=== PATIENT | female | born 1955 | race Caucasian/White ===

== ENCOUNTER 2020-09-25 23:31 | Observation (INO) | payer MEDICARE, OTHER ==
[~2020-09-25] VITALS: Ht 157.5 cm; Wt 69.7 kg
[2020-09-26 00:43] LABS: BASO # 0.1 10^3/uL (0.0-0.2); BASO % 0.6 % (0.0-1.0); EOS # 0.3 10^3/uL (0.0-0.5); EOS % 3.2 % (0.0-3.0); HEMATOCRIT 40.8 % (36.0-47.0); HEMOGLOBIN 13.4 g/dl (12.0-15.5); LYMPH # 3.1 10^3/uL (1.5-5.0); MEAN CORPUSCULAR HEMOGLOBIN 31.2 pg (27.0-33.0); MEAN CORPUSCULAR HGB CONC 32.8 g/dl (32.0-36.5); MEAN CORPUSCULAR VOLUME 94.9 fl (80.0-96.0); MONO # 0.7 10^3/uL (0.0-0.8); MONO % 8.2 % (2.0-8.0); NEUTROPHILS # 4.7 10^3/uL (1.5-8.5); NEUTROPHILS % 52.2 % (36.0-66.0)
[2020-09-26 00:47] LABS: PLATELET COUNT, AUTOMATED 97 10^3/uL (150-450)
[2020-09-26 01:20] LABS: ACETAMINOPHEN LEVEL < 2.0 UG/ML (10.0-30.0); ALBUMIN 3.4 GM/DL (3.2-5.2); ALT/SGPT 61 U/L (12-78); BILIRUBIN,DIRECT 0.1 MG/DL (0.0-0.2); BILIRUBIN,TOTAL 0.8 MG/DL (0.2-1.0); BLOOD UREA NITROGEN 6 MG/DL (7-18); CALCIUM LEVEL 8.9 MG/DL (8.5-10.1); CARBON DIOXIDE LEVEL 19 MEQ/L (21-32); CHLORIDE LEVEL 111 MEQ/L (98-107); CK-MB VALUE MASS < 1.0 NG/ML (<3.6); CPK CREATINE PHOSPHOKINASE 101 U/L (26-192); CREATININE FOR GFR 0.62 MG/DL (0.55-1.30); ETHYL ALCOHOL (ETHANOL) 0.256 % (0.000-0.010); GLOMERULAR FILTRATION RATE > 60.0 (>51); GLUCOSE, FASTING 95 MG/DL (70-100); MB/CK RELATIVE INDEX 0.99 (< OR =4); SALICYLATE LEVEL < 1.7 MG/DL (5.0-30.0); SODIUM LEVEL 141 MEQ/L (136-145); TOTAL PROTEIN 7.6 GM/DL (6.4-8.2); TROPONIN I < 0.02 NG/ML (< 0.10)
[2020-09-26] MEDS ORDERED: LORazepam 2 MG TAB PO PRN ×2 (07:10→09:00)
[2020-09-26] MEDS ORDERED: MULTIVITAMIN -ADULT INJECTION 10 ML, THIAMINE INJection 100 MG, FOLIC ACID 1 MG in NS 1... IV ONE (07:10)
[2020-09-26 07:39] LABS: AMPHETAMINES LEVEL URINE NEGATIVE (NEGATIVE); BARBITURATES URINE NEGATIVE (NEGATIVE); BENZODIAZEPINES URINE NEGATIVE (NEGATIVE); CANNABINOIDS URINE NEGATIVE (NEGATIVE); COCAINE METABOLITE URINE NEGATIVE (NEGATIVE); METHADONE URINE NEGATIVE (NEGATIVE); OPIATES URINE NEGATIVE (NEGATIVE); PHENCYCLIDINE URINE NEGATIVE (NEGATIVE)
--- NOTE | 2020-09-26 08:16 | REP ---
INDICATION: fall. COMPARISON: None. TECHNIQUE: AP view of the pelvis. Single-view. FINDINGS: The bony pelvic ring is intact. No pelvic or proximal femur fracture is seen. No sacral fracture is appreciated. Sacroiliac joints and symphysis pubis are intact. Hip joint spaces are preserved. There is minimal superior acetabular spurring bilaterally. Visualized bowel gas pattern is normal. IMPRESSION: No traumatic abnormality noted. <Electronically signed by Carlos Cruz > 09/26/20 [id number]
--- NOTE | 2020-09-26 08:17 | REP ---
INDICATION: fall. COMPARISON: None. TECHNIQUE: AP and frogleg views of the left hip are provided. FINDINGS: The left femoral head is smooth and rounded. Hip joint space is preserved. There is mild superior acetabular spurring. No fracture is seen. Visualized left hemipelvis appears intact. IMPRESSION: No fracture noted. Minimal spurring. <Electronically signed by Carlos Cruz > 09/26/20 [id number]
--- NOTE | 2020-09-26 08:18 | REP ---
INDICATION: fall. COMPARISON: Today's left hip radiographs.. TECHNIQUE: AP and lateral views of the mid and distal femur are presented. FINDINGS: AP and lateral views of the left femur demonstrate normal bones, joints, and soft tissues. No fracture or subluxation is seen. No opaque foreign body noted. IMPRESSION: Negative left femur series. <Electronically signed by Carlos Cruz > 09/26/20 [id number]
[2020-09-26] MEDS ORDERED: ENOXAPARIN 40MG/0.4ML SYRINGE (J1650 PER 10MG) SC SCH (09:00)
[2020-09-26] MEDS ORDERED: THIAMINE 100 MG TAB PO SCH (09:00)
--- NOTE | 2020-09-26 09:35 | HPE ---
HISTORY AND PHYSICAL DATE OF ADMISSION: 09/26/2020 PRINCIPAL DIAGNOSIS: Altered mental status/chronicity unknown. HISTORY OF PRESENT ILLNESS: Hayden Bailey was brought apparently by the authorities to the emergency room intoxicated. She has been here over eight hours. [facility] was called to admit this patient who was in the emergency room at 11:30 last night because her mental status has not returned to baseline. Unfortunately, no one has any idea what her baseline is. She has never been in the hospital before, there are no records on her, and there are no family members or any other people that can give us any idea what her baseline status is. When she was felt to no longer be intoxicated, she had some evidence of hesitancy to answer questions, which is leading to her admission. Past medical history is entirely unknown. She is apparently an alcoholic presenting with a blood alcohol level of 0.25. Mildly elevated liver function tests and probably subclinical hypothyroidism. From what the emergency room records say, she was brought to the emergency room by EMS after she fell. She was trying to get out of a cab and she fell face first. She was disoriented and had a hematoma on the forehead. She was brought to the emergency room because of that fall. PAST MEDICAL HISTORY: Unknown. She says she has never been in the hospital. PAST SURGICAL HISTORY: She denies any surgery. MEDICATIONS: Denies any medicines. ALLERGIES: Denies any allergies. FAMILY HISTORY: She says "I don't remember anybody." SOCIAL HISTORY: She smokes. Heavy alcohol use. Denies recreational drug use. She does not work. PHYSICAL EXAMINATION: VITAL SIGNS: Blood pressure 144/75, pulse 76, respiratory rate 18, 100% O2 saturation on room air. Afebrile. GENERAL APPEARANCE: She looks chronically ill, but resting comfortably in no distress whatsoever. HEENT: She has a mild abrasion of her forehead and otherwise unremarkable. Pharynx benign. No nystagmus. Extraocular movements are intact. LUNGS: Clear. HEART: Regular rhythm without murmur. ABDOMEN: Soft and nontender with no masses. EXTREMITIES: No clubbing, cyanosis, or edema. Normal strength in the arms and the legs. Normal reflexes. Normal sensation. I did not test her gait. There is no asterixis present. NEUROLOGIC: Mental status exam shows that she knows she is in the emergency room. She knows she is in [place]. She knows the month. She thinks it is 2019, but that is fairly close. She knows her date of and her year. She is a little slow to answer some of these, but we do not know whether that is her baseline or this is change. LABORATORY DATA: Sodium 141, potassium 4.0, BUN 6, creatinine 0.6, AST 76, ALT 61, alkaline phosphatase 139. TSH 6.7. White count 9, hemoglobin 13.4, platelets 97,000. Blood alcohol 0.25. Tox screen negative. Urinalysis negative. COVID screen negative. IMAGING DATA: X-ray of the hip, femur, and pelvis are unremarkable. She was brought to the emergency room because she fell and hit her head, but I do not see where she has actually had any brain imaging done (I will defer admission until this is performed in case there is a subdural hematoma). IMPRESSION: 1. Perceived altered mental status. Again, she is sort of a "black box." We do not know what her baseline mental status is. 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 She has does not have any problems with extraocular movements. I did not get a chance to test her gait, it could be Wernicke's or Wernicke-Korsakoff syndrome. Certainly with the fall hitting her forehead, she should have some brain imaging done and I will call down to the emergency room and postpone her admission until this is performed. If there is no sign of an actionable intracranial injury requiring a transfer, then we will admit here and provide banana bag, thiamine, CIWA protocol, and get PFS involved. 2. Subclinical hypothyroidism. TSH is minimally elevated. We will get a free T4, as well as repeat the TSH (fairly unreliable assay in the lab recently). 3. Fall probably from alcoholism. We will check a B12 and a folate. Get PT involved.
--- NOTE | 2020-09-26 10:17 | ECGEPIP ---
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
[2020-09-26 10:28] LABS: FREE T4 0.96 NG/DL (0.76-1.46)
[2020-09-26 10:49] VITALS: BP 153/80
--- NOTE | 2020-09-26 11:44 | REP ---
INDICATION: Altered Mental Status. COMPARISON: None. TECHNIQUE: SINGLE PORTABLE AP VIEW OF THE CHEST WAS PERFORMED. FINDINGS: The lungs are not well ventilated. There are carotid lung markings but no evidence of acute infiltrate. The heart is not significantly enlarged. The mediastinal silhouette is unremarkable. The visualized osseous structures appear intact. IMPRESSION: NO ACUTE PULMONARY DISEASE.A preliminary report was provided by [facility] at the time of the exam. <Electronically signed by Juan Carlos Rogel > 09/26/20 [id number]
[2020-09-26] MEDS: MULTIVITAMINS/MINERALS THERAP 1 TAB PO SCH (12:08)
[2020-09-26] MEDS: THIAMINE 100 MG TAB PO SCH (12:08)
[2020-09-26] MEDS: FOLIC ACID 1 MG TAB PO SCH (12:09)
[2020-09-26 13:50] LABS: VITAMIN B12 LEVEL 409 PG/ML (247-911)
[2020-09-26 13:51] LABS: FOLATE > 24.0 NG/ML (>5.4)
[2020-09-26 14:00] VITALS: BP 145/78
--- NOTE | 2020-09-26 16:45 | REP ---
INDICATION: trauma. COMPARISON: None. TECHNIQUE: CT cervical spine performed in the axial plane, with sagittal and coronal reconstruction images performed. FINDINGS: There is no acute compression fracture or malalignment. There is no prevertebral soft tissue swelling. Disc spaces are well preserved. There is normal cervical lordosis. There is no abnormal density in the spinal canal.Enlarged thyroid lobe is noted on the right. There is diffuse narrowing, sclerosis and spurring at the posterior facet joints. IMPRESSION: No evidence of acute fracture or dislocation.Preliminary report provided by [facility] at the time of the exam. <Electronically signed by Juan Carlos Rogel > 09/26/20 [id number]
--- NOTE | 2020-09-26 16:45 | REP ---
INDICATION: Altered Mental Status. COMPARISON: None. TECHNIQUE: CT BRAIN PERFORMED IN THE AXIAL PLANE. CORONAL RECONSTRUCTION IMAGES ARE PERFORMED. FINDINGS: There is moderate atrophy. There is no midline shift or mass effect. There is no acute intracranial hemorrhage or extra-axial fluid collection. Rogel-white differentiation is relatively well maintained. There do appear to be some minimal periventricular small vessel ischemic changes in the white matter likely chronic in nature. No skull fracture is seen. The mastoid air cells and visualized paranasal sinuses are clear. IMPRESSION: No acute intracranial hemorrhage or skull fracture. Chronic changes as discussed above. A preliminary report was provided by [facility] at the time of the exam. <Electronically signed by Juan Carlos Rogel > 09/26/20 0333
[2020-09-26] MEDS ORDERED: NICOTINE 21MG/24HR 1 EA TRANSDERMAL TD PRN (17:45)
[2020-09-26 21:46] VITALS: BP 137/66
[2020-09-27 06:12] VITALS: BP 141/80
[2020-09-27 06:13] VITALS: BP 141/80
[2020-09-27 06:51] LABS: HEMATOCRIT 36.2 % (36.0-47.0); MEAN CORPUSCULAR HEMOGLOBIN 30.9 pg (27.0-33.0); MEAN CORPUSCULAR HGB CONC 33.1 g/dl (32.0-36.5); MEAN CORPUSCULAR VOLUME 93.3 fl (80.0-96.0); RED BLOOD COUNT 3.88 10^6/uL (4.00-5.40); WHITE BLOOD COUNT 6.2 10^3/uL (4.0-10.0)
[2020-09-27 06:52] LABS: PLATELET COUNT, AUTOMATED 79 10^3/uL (150-450)
[2020-09-27 07:22] LABS: ALBUMIN 2.8 GM/DL (3.2-5.2); ALT/SGPT 43 U/L (12-78); BILIRUBIN,TOTAL 1.5 MG/DL (0.2-1.0); BLOOD UREA NITROGEN 8 MG/DL (7-18); CALCIUM LEVEL 8.1 MG/DL (8.8-10.2); CARBON DIOXIDE LEVEL 24 MEQ/L (21-32); CHLORIDE LEVEL 110 MEQ/L (98-107); GLOMERULAR FILTRATION RATE > 60.0 (>45); GLUCOSE, FASTING 87 MG/DL (70-100); POTASSIUM SERUM 3.7 MEQ/L (3.5-5.1); SODIUM LEVEL 139 MEQ/L (136-145); TOTAL PROTEIN 6.3 GM/DL (6.4-8.2)
[2020-09-27] MEDS: THIAMINE 100 MG TAB PO SCH (08:35)
[2020-09-27] MEDS: MULTIVITAMINS/MINERALS THERAP 1 TAB PO SCH (08:36)
[2020-09-27] MEDS: FOLIC ACID 1 MG TAB PO SCH (08:36)
[2020-09-27] MEDS ORDERED: ENOXAPARIN 40MG/0.4ML SYRINGE (J1650 PER 10MG) SC SCH (09:00)
[2020-09-27] MEDS ORDERED: NICO21PAT TD (09:17)
[2020-09-27] MEDS ORDERED: THIA100TA PO (09:17)
[2020-09-27] MEDS ORDERED: FOLI1TAB11 PO (09:17)
[2020-09-27] MEDS ORDERED: LEVO25TA5 PO (09:17)
--- NOTE | 2020-09-27 09:24 | IPN ---
PROGRESS NOTE DATE: 09/27/2020 SUBJECTIVE: Hayden is seen on [address]. She was admitted with a diagnosed of "altered mental status." The problem with the diagnosis is no one has any previous experience with her and we cannot find any family or friends to tell whether her current mentation is baseline and therefore, not altered or if there is a change. She has a history of alcohol abuse. No other available past medical history. Interestingly, she lives in an apartment building and the person who lives next to her was also admitted yesterday with some confusional episodes. No carbon monoxide levels were drawn. Nursing packing shed supervisor is notifying the fire department to go test the resident. I want to correct dictation from yesterday, there was no CT of the head available in [facility], but in calling the emergency room there was a verbal report that was negative; so she did in deed actually have brain imaging prior to admission. OBJECTIVE: VITAL SIGNS: Stable. Afebrile. HEENT: Shows an abrasion of the left forehead. Pupils equal and reactive to light. Extraocular movements intact. LUNGS: Clear. HEART: Regular rhythm. ABDOMEN: Soft and nontender. EXTREMITIES: No peripheral edema. Moves arms and legs with equal strength. MENTAL STATUS EXAM: Shows she is alert and conversant. She knows her location, the month, the year, her address, and her phone number. She cannot name the president. LABORATORY DATA: CBC and CMP unremarkable. B12, folate, and RPR were unremarkable. Free T4 is normal. IMPRESSION/PLAN: 1. ? altered mental status. As noted above, it is hard to call this altered when we do not know her baseline. 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 She is on folic acid and a multivitamin, as well as [facility] protocol. 2. Subclinical hypothyroidism. Free T4 is the lower end of normal. TSH mildly elevated in the face of the mental status problems. I am starting her on levothyroxine low dose 25 mcg daily. She will need a free T4 and TSH in six to weight weeks.
[2020-09-27] MEDS ORDERED: LEVOTHYROXINE 25MCG TABLET (0.025MG) PO SCH (10:00)
== END 2020-09-27 12:42 | disposition home health service (06) ==
LOC: M ED 23:31 → EDBD 23:31 → M MS5PR 23:32 → M ED INP 09-26 09:00 → UNDOADMOB 09-26 09:00 → ENRESERV 09-26 09:29 → M ED INP 09-26 10:39 → M MS5PR 09-26 10:39 → UNDODISOB 09-27 12:42
PROVIDERS: ADMIT Family Medicine; ATTEND Family Medicine
DX: R41.82 Altered mental status, unspecified (principal); F10.27 Alcohol dependence with alcohol-induced persisting dementia; F17.218 Nicotine dependence, cigarettes, with other nicotine-induced disorders; E03.9 Hypothyroidism, unspecified; Z91.81 History of falling
CPT/HCPCS: 36415; 70450; 71045; 72125; 72170; 73502; 73552; 80048; 80053; 80076; 80143; 80307; 81001; 82077; 82140; 82550; 82553; 82607; 82746; 83735; 84439; 84443; 84484; 85025; 85027; 85049; 85055; 86780; 87798; 93005; 93041; 94760; 97116; 97161; 99285; G0378; J3411

== ENCOUNTER 2021-04-20 01:22 | Inpatient (IN) | payer OTHER ==
[~2021-04-20] VITALS: Ht 160 cm; Wt 65.8 kg
[~2021-04-20 01:22] MED LIST: FOLI1TAB11 PO; LEVO25TA5 PO; NICO21PAT TD; THIA100TA PO
--- OUTSIDE RECORDS SUMMARY | 2021-04-20 01:28 | CCD ---
Author Author [facility] [place] [facility] Address Unknown Phone Unavailable Support Name Relationship Address Phone DISABLED Next Of Kin Unknown Unavailable Re-disclosure Warning The records that you are about to access may contain information from federally-assisted alcohol or drug abuse programs. If such information is present, then the following federally mandated warning applies: This information has been disclosed to you from records protected by federal confidentiality rules (42 CFR part 2). The federal rules prohibit you from making any further disclosure of this information unless further disclosure is expressly permitted by the written consent of the person to whom it pertains or as otherwise permitted by 42 CFR part 2. A general authorization for the release of medical or other information is NOT sufficient for this purpose. The Federal rules restrict any use of the information to criminally investigate or prosecute any alcohol or drug abuse patient.The records that you are about to access may contain highly sensitive health information, the redisclosure of which is protected by Article 27-F of the [facility] Public Health law. If you continue you may have access to information: Regarding HIV / AIDS; Provided by facilities licensed or operated by the [facility] Office of Mental Health; or Provided by the [facility] Office for People With Developmental Disabilities. If such information is present, then the following [facility] mandated warning applies: This information has been disclosed to you from confidential records which are protected by state law. State law prohibits you from making any further disclosure of this information without the specific written consent of the person to whom it pertains, or as otherwise permitted by law. Any unauthorized further disclosure in violation of state law may result in a fine or long term sentence or both. A general authorization for the release of medical or other information is NOT sufficient authorization for further disc losure. Medications Medication Brand Name Start Date Product Form Dose Route Admi nistrative Instructions Pharmacy Instructions Status Indications Reaction Description Data Source(s) 21 mg/24 hr 09/27/2020 12:00:00 AM EDT patch 24 hour 28 APPLY ONE PATCH TO THE SKIN EVERY DAY NEEDED FOR NICOTINE WITHDRAWAL APPLY ONE PATCH TO THE SKIN EVERY DAY NEEDED FOR NICOTINE WITHDRAWAL SOLD: 09/27/2020 [facility] 1 mg 09/27/2020 12:00:00 AM EDT tablet 30 TAKE ONE TABLET BY MOUTH EVERY DAY TAKE ONE TABLET BY MOUTH EVERY DAY SOLD: 09/27/2020 [facility] 100 mg 09/27/2020 12:00:00 AM EDT tablet 30 TAKE ONE TABLET BY MOUTH EVERY DAY TAKE ONE TABLET BY MOUTH EVERY DAY SOLD: 09/27/2020 [facility] 25 mcg 09/27/2020 12:00:00 AM EDT tablet 30 TAKE ONE TABLET BY MOUTH EVERY DAY AT 6AM TAKE ONE TABLET BY MOUTH EVERY DAY AT 6AM SOLD: 09/27/2020 [facility] Insurance Providers Payer name Policy type / Coverage type Policy ID Covered constitution party ID Covered constitution party's relationship to ziegler Policy Ziegler Plan Information [facility] COMM[facility] [id number] MEDICARE [id number] SP [id number] EMEDNY [id number] SP [id number] Problems, Conditions, and Diagnoses No Information Surgeries/Procedures No Information Results ID Date Data Source [id number] 09/26/2020 07:16:00 AM EDT [facility] Name Value Range Interpretation Code Description Data Beba rce(s) Supporting Document(s) SARS-CoV-2 (COVID 19) NEGATIVE - SARS-CoV-2 (COVID19) [facility] This lab was ordered by [facility] a nd reported by [facility]. Procedure Social History No Information
[2021-04-20] MEDS ORDERED: DEXTROSE 50% 50 ML SYRINGE IV STA (01:32)
[2021-04-20] MEDS ORDERED: NS 1,000 ML IV ONE (01:55)
[2021-04-20 02:00] LABS: ABG BASE EXCESS -4.1 (-2.0-2.0); ABG O2 SATURATION 93.9 % (95.0-99.0); ABG PARTIAL PRESSURE CO2 38.5 mmHg (35.0-45.0); ABG PARTIAL PRESSURE O2 76.8 mmHg (75.0-100.0); ABG TOTAL CO2 22.2 MEQ/L (23.0-31.0); ABG pH (ARTERIAL) 7.355 UNITS (7.350-7.450)
[2021-04-20 02:14] LABS: BASO % 0.6 % (0.0-1.0); EOS # 0.5 10^3/uL (0.0-0.5); EOS % 6.8 % (0.0-3.0); HEMATOCRIT 40.9 % (36.0-47.0); HEMOGLOBIN 13.3 g/dl (12.0-15.5); LYMPH % 42.1 % (24.0-44.0); MEAN CORPUSCULAR HGB CONC 32.5 g/dl (32.0-36.5); MEAN CORPUSCULAR VOLUME 98.3 fl (80.0-96.0); MONO # 0.6 10^3/uL (0.0-0.8); NEUTROPHILS % 42.2 % (36.0-66.0); PLATELET COUNT, AUTOMATED 123 10^3/uL (150-450); RED BLOOD COUNT 4.16 10^6/uL (4.00-5.40)
--- NOTE | 2021-04-20 02:27 | REPVR ---
PROCEDURE INFORMATION: Exam: CT Head without Contrast Exam date and time: 04/20/21 (1:02am) Age: 65 years old Clinical indication: Altered mental status / memory loss. Confusion or disorientation. TECHNIQUE: Imaging protocol: Computed tomography of the head without contrast Radiation optimization: All CT scans at this facility use at least one of these dose optimization techniques: automated exposure control; mA and/or kV adjustment per patient size (includes targeted exams where dose is matched to clinical indication); or iterative reconstruction. COMPARISON: CT HEAD of 09/26/20 FINDINGS: Brain: No acute hemorrhage. No cerebral edema. No mass effect. Age-related atrophic changes are noted. Periventricular and subcortical areas of low attenuation, compatible with chronic small vessel microischemic changes. Cerebral ventricles: No ventriculomegaly. Paranasal sinuses: Visualized sinuses are unremarkable. No air-fluid levels. Mastoid air cells: Visualized mastoid air cells are well aerated. Bones/joints: Unremarkable. No acute fracture. Soft tissues: Unremarkable. IMPRESSION: No acute intracranial pathology is appreciated. Chronic atrophic and microischemic changes. The brain had a similar appearance 7 months ago. Electronically signed by: Michelle Manzano On 04/20/2021 02:26:35 AM
--- NOTE | 2021-04-20 02:31 | REPVR ---
PROCEDURE INFORMATION: Exam: XR Chest Exam date and time: 04/20/21 (1:09am) Age: 65 years old Clinical indication: Altered mental status TECHNIQUE: Imaging protocol: Portable CXR Views: 1 view COMPARISON: Portable CXR of 09/26/20 FINDINGS: Lungs: No consolidation. Cannot exclude a faint nodular opacity (12 mm size) laterally in the RUL. Pleural spaces: Unremarkable. No pleural effusions. No pneumothorax. Heart/Mediastinum: Unremarkable. No cardiomegaly. Bones/joints: Degenerative changes at each shoulder joint. IMPRESSION: No acute findings. Cannot exclude a faint nodular opacity (12 mm size) laterally in the RUL (vs. overlapping of markings). Suggest non-emergent follow-up frontal and slightly oblique CXR's in the next 2-3 weeks to reassess this area. Electronically signed by: Michelle Manzano On 04/20/2021 02:30:50 AM
[2021-04-20 03:25] LABS: ACETAMINOPHEN LEVEL < 2.0 UG/ML (10.0-30.0); ALBUMIN 3.2 GM/DL (3.2-5.2); ALT/SGPT 40 U/L (12-78); BILIRUBIN,DIRECT 0.5 MG/DL (0.0-0.2); BILIRUBIN,TOTAL 0.8 MG/DL (0.2-1.0); BLOOD UREA NITROGEN 7 MG/DL (7-18); CALCIUM LEVEL 8.2 MG/DL (8.8-10.2); CARBON DIOXIDE LEVEL 25 MEQ/L (21-32); CHLORIDE LEVEL 108 MEQ/L (98-107); CK-MB VALUE MASS < 1.0 NG/ML (<3.6); CPK CREATINE PHOSPHOKINASE 71 U/L (26-192); CREATININE FOR GFR 0.76 MG/DL (0.55-1.30); ETHYL ALCOHOL (ETHANOL) 0.224 % (0.000-0.010); GLOMERULAR FILTRATION RATE > 60.0 (>45); GLUCOSE, FASTING 86 MG/DL (70-100); MB/CK RELATIVE INDEX 1.41 (< OR =4); POTASSIUM SERUM 3.5 MEQ/L (3.5-5.1); SALICYLATE LEVEL 1.7 MG/DL (5.0-30.0); SODIUM LEVEL 144 MEQ/L (136-145); TOTAL PROTEIN 7.1 GM/DL (6.4-8.2); TROPONIN I < 0.02 NG/ML (< 0.10)
[2021-04-20] MEDS: THIAMINE 100 MG TAB PO SCH ×3 (04:29→20:33)
[2021-04-20] MEDS ORDERED: LORazepam 2 MG TAB PO PRN ×2 (04:30→15:15)
[2021-04-20 04:49] LABS: AMPHETAMINES LEVEL URINE NEGATIVE (NEGATIVE); BARBITURATES URINE NEGATIVE (NEGATIVE); BENZODIAZEPINES URINE NEGATIVE (NEGATIVE); CANNABINOIDS URINE POSITIVE (NEGATIVE); COCAINE METABOLITE URINE NEGATIVE (NEGATIVE); METHADONE URINE NEGATIVE (NEGATIVE); OPIATES URINE NEGATIVE (NEGATIVE); PHENCYCLIDINE URINE NEGATIVE (NEGATIVE)
--- NOTE | 2021-04-20 05:52 | ECGEPIP ---
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
--- OUTSIDE RECORDS SUMMARY | 2021-04-20 08:47 | CCD ---
Author Author [facility] [place] [facility] Address Unknown Phone Unavailable Support Name Relationship [...] by Article 27-F of the [facility] Public Health law. If you continue you may have access to information: Regarding HIV / AIDS; Provided by facilities licensed or operated by the [facility] Office of Mental Health; or Provided by the [facility] Office for People With Developmental Disabilities. If such information is present, then the following [facility] mandated warning applies: This information has been [...] law may result in a fine or group home sentence or both. A general authorization for [...] relationship to ziegler Policy Ziegler Plan Information [facility] COMMUN[facility] PLAN [facility] [id number] MEDICARE [id number] SP [id number] [id number] EMEDNY [id number] SP [id number] Problems, Conditions, and Diagnoses No Information Surgeries/Procedures No Information Results ID Date Data Source [id number] 09/26/2020 07:16:00 AM EDT [facility] Name Value Range Interpretation Code Description Data Beba rce(s) Supporting Document(s) SARS-CoV-2 (COVID 19) NEGATIVE - SARS-CoV-2 (COVID19) [facility] This lab was ordered by [facility] a nd reported by [facility]. Procedure Social History No Information
[2021-04-20] MEDS ORDERED: FOLIC ACID 1 MG TAB PO SCH (09:00)
[2021-04-20] MEDS: MULTIVITAMINS/MINERALS THERAP 1 TAB PO SCH ×2 (09:18→14:12)
[2021-04-20] MEDS ORDERED: B-1100TA2 PO (12:18)
[2021-04-20] MEDS ORDERED: FOLI1TAB11 PO (12:18)
[2021-04-20] MEDS ORDERED: SYNT25TA PO (12:18)
[2021-04-20] MEDS ORDERED: HOME MED LIST COMPLETE! XX SCH (12:20)
[2021-04-20 12:38] LABS: RSV AMPLIFICATION NEGATIVE (NEGATIVE)
[2021-04-20] MEDS ORDERED: ACETAMINOPHEN TAB 650MG DOSE (2X325MG) PO PRN (13:00)
--- OUTSIDE RECORDS SUMMARY | 2021-04-20 13:09 | CCD ---
Author Author [facility] Address Unknown Phone Unavailable Support Name [...] of the [facility] Public Health law. If you continue you may have access to information: Regarding HIV / AIDS; Provided by facilities licensed or operated by the [facility] Office of Mental Health; or Provided by the [facility] Office for People With Developmental Disabilities. If such information is present, then the following [facility] mandated warning applies: This information has been [...] law may result in a fine or intermediate sentence or both. A general authorization for [...] type / Coverage type Policy ID Covered republican ID Covered republican's relationship to ziegler Policy Ziegler Plan Information [facility] COMMUNITY [facility] [facility] [id number] MEDICARE [id number] SP [id number] [id number] EMEDNY [id number] SP [id number] Problems, Conditions, and Diagnoses No Information Surgeries/Procedures No Information Results ID Date Data Source [id number] 09/26/2020 07:16:00 AM EDT [facility] Name Value Range Interpretation Code Description Data Beba rce(s) Supporting Document(s) SARS-CoV-2 (COVID 19) NEGATIVE - SARS-CoV-2 (COVID19) [facility] This lab was ordered by [facility] a nd reported by [facility]. Procedure Social History No Information
--- NOTE | 2021-04-20 13:18 | HPEPDOC ---
General Date of Admission Apr 20, 2021 at 12:57 Date of Service: Apr 20, 2021 Chief Complaint The patient is a 65-year-old female admitted with a reason for visit of Alcohol Abuse/ Wernicke Encephalopathy. Exam Limitations: Mild cognitive slowing History of Present Illness Patient is 65 years old female with past medical history of hypothyroidism, questionable Warnicke encephalopathy, EtOH abuse presented to hospital with alcohol intoxication. According to her life partner patient passed out due to alcohol intoxication and she was brought to the emergency room. Patient was disoriented in time and place. She was not able to provide any history. In ER patient was found to have no leukocytosis, lactic acid 2.2. CT head negative for acute stroke or bleeding. TSH of 5.2, EtOH level of 0.2, UA shows pyuria, cannabinoids screen positive Home Medications Scheduled Folic Acid (Folic Acid) 1 Mg Tablet, 1 MG PO DAILY, (Reported) Levothyroxine Sodium (Synthroid) 25 Mcg Tablet, 25 MCG PO DAILY, (Reported) Thiamine HCl (Vitamin B-1) 100 Mg Tablet, 100 MG PO DAILY, (Reported) Allergies Coded Allergies: No Known Drug Allergies (Verified Allergy, Unknown, 09/26/20) Past Medical History Medical History Hypothyroidism, EtOH abuse, questionable Warnicke encephalopathy Family History Unable to obtain Social History * Smoker: current smoker Alcohol: heavy Drugs: marijuana A-FIB/CHADSVASC A-FIB History Current/History of A-Fib/PAF?: No Current PO Anticoag Therapy: No Review of Systems Constitutional: Denies: Chills Eyes: Denies: Pain ENT: Denies: Head Aches Skin: Denies: Rash, Lesions Pulmonary: Denies: Dyspnea Cardiovascular: Denies: Chest Pain Gastrointestinal: Denies: Nausea Genitourinary: Denies: Dysuria Hematologic: Denies: Bruising Endocrine: Denies: Polydipsia Musculoskeletal: Denies: Neck Pain Neurological: Denies: Weakness Psych: Reports: Memory Issues Physical Examination General Exam: Positive: Cooperative, Mild Distress Eye Exam: Positive: PERRLA ENT Exam: Positive: Atraumatic Neck Exam: Positive: Supple; Negative: JVD Chest Exam: Positive: Clear to auscultation Telemetry: Positive: No significant arrhythmia Abdomen Exam: Positive: Normal bowel sounds Extremity Exam: Negative: Clubbing Skin Exam: Positive: Nl turgor and temperature Neuro Exam: Positive: Strength at 5/5 X4 ext, Cranial Nerves 3-12 NL Psych Exam: Positive: Other (Not oriented in time and place); Negative: Oriented x 3 Vital Signs Vital Signs Date Time Temp Pulse Resp B/P (MAP) Pulse Ox O2 Delivery O2 Flow Rate FiO2 04/20/21 12:51 72 16 181/84 (116) 98 Room Air 04/20/21 01:29 96.3 Laboratory Data Labs 24H Laboratory Tests 2 04/20/21 01:15: Immature Granulocyte % (Auto) 0.3, Neutrophils (%) (Auto) 42.2, Lymphocytes (%) (Auto) 42.1, Monocytes (%) (Auto) 8.0, Eosinophils (%) (Auto) 6.8H, Basophils (%) (Auto) 0.6, Neutrophils # (Auto) 3.0, Lymphocytes # (Auto) 3.0, Monocytes # (Auto) 0.6, Eosinophils # (Auto) 0.5, Basophils # (Auto) 0.0, Nucleated Red Blood Cells % (auto) 0.0, Anion Gap 11, Glomerular Filtration Rate > 60.0, Lacti c Acid Level 2.2*H, Calcium Level 8.2L, Total Bilirubin 0.8, Direct Bilirubin 0.5H, Aspartate Amino Transf (AST/SGOT) 59H, Alanine Aminotransferase (ALT/SGPT) 40, Alkaline Phosphatase 105, Ammonia 28, Total Creatine Kinase 71, Creatine Kinase MB < 1.0, Creatine Kinase MB Relative Index 1.41, Troponin I < 0.02, Total Protein 7.1, Albumin 3.2, Albumin/Globulin Ratio 0.8L, Thyroid Stimulating Hormone (TSH) 5.230H, Salicylates Level 1.7L, Acetaminophen Level < 2.0L, Ethyl Alcohol Level 0.224H 04/20/21 01:50: Blood Gas Bicarbonate Standard 21.0L, Arterial Blood pH 7.355, Arterial Blood Partial Pressure CO2 38.5, Arterial Blood Partial Pressure O2 76.8, Arterial Blood Total CO2 22.2L, Arterial Blood HCO3 21.0L, Arterial Blood Base Excess - 4.1L, Arterial Blood Oxygen Saturation 93.9L 04/20/21 02:10: Urine Color BEA, Urine Appearance HAZY, Urine pH 5.0, Urine Specific [place] 1.021, Urine Protein 1+H, Urine Glucose (UA) 3+H, Urine Ketones NEGATIVE, Urine Blood NEGATIVE, Urine Nitrite NEGATIVE, Urine Bilirubin NEGATIVE, Urine Urobilinogen 4.0H, Urine Leukocyte Esterase TRACEH, Urine WBC (Auto) 10H, Urine RBC (Auto) 3, Urine Hyaline Casts (Auto) 0, Urine Bacteria (Auto) NEGATIVE, Urine Squamous Epithelial Cells 9, Urine Mucus (Auto) SMALL, Urine Sperm (Auto) , Urine Opiates Screen NEGATIVE, Urine Methadone Screen NEGATIVE, Urine Barbiturates Screen NEGATIVE, Urine Phencyclidine Screen NEGATIVE, Urine Amphetamines Screen NEGATIVE, Urine Benzodiazepines Screen NEGATIVE, Urine Cocaine Metabolite Screen NEGATIVE, Urine Cannabinoids Screen POSITIVEH 04/20/21 02:41: Bedside Glucose (Misc Panel) 74L 04/20/21 11:41: Coronavirus (COVID-19)(PCR) NEGATIVE, Influenza Type A (RT-PCR) NEGATIVE, Influenza Type B (RT-PCR) NEGATIVE, Respiratory Syncytial Virus (PCR) NEGATIVE CBC/BMP Laboratory Tests 04/20/21 01:15 Microbiology Microbiology 04/20/21 Urine Culture, Received Pending Assessment/Plan Patient is 65 years old female with past medical history of hypothyroidism, questionable Warnicke encephalopathy, EtOH abuse presented to hospital with alcohol intoxication. According to her life partner patient passed out due to alcohol intoxication and she was brought to the emergency room. Patient was disoriented in time and place. She was not able to provide any history. In ER patient was found to have no leukocytosis, lactic acid 2.2. CT head negative for acute stroke or bleeding. TSH of 5.2, EtOH level of 0.2, UA shows pyuria, cannabinoids screen positive Problems (1) Metabolic encephalopathy Status: Acute Problem Text: Most likely secondary to alcohol abuse superimposed with possible Warnicke encephalopathy [facility] protocol CT head negative for acute stroke or bleeding (2) Alcohol abuse Status: Acute Problem Text: [facility] Social work on board (3) Hypothyroidism Status: Chronic Problem Text: TSH elevated There is question for compliance I will check thyroid profile Plan / VTE VTE Prophylaxis Ordered?: Yes BAKARI ESPINAL DO Apr 20, 2021 13:18
[2021-04-20 14:00] VITALS: BP 168/86
[2021-04-20 14:42] LABS: FREE THYROXINE INDEX 3.3 % (1.3-4.8); THYROID STIMULATING HORMONE 2.67 uIU/ML (0.358-3.740); THYROXINE (T4) 10.3 UG/DL (4.5-12.0)
[2021-04-20 14:59] VITALS: BP 168/74
[2021-04-20] MEDS: NS 0.45% 1,000 ML IV SCH (15:34)
[2021-04-20] MEDS: HEPARIN SOD (PORCINE) 5000UNITS/ML 1ML VIAL/SYRINGE SC SCH (20:34)
[2021-04-20 22:00] VITALS: BP 109/68
[2021-04-21] MEDS: NS 0.45% 1,000 ML IV SCH ×3 (00:01→14:58)
[2021-04-21 02:00] VITALS: BP 107/69
[2021-04-21 06:00] VITALS: BP 127/74
[2021-04-21] MEDS ORDERED: LEVOTHYROXINE 25MCG TABLET (0.025MG) PO SCH (06:00)
[2021-04-21 06:10] LABS: HEMATOCRIT 33.7 % (36.0-47.0); MEAN CORPUSCULAR HEMOGLOBIN 32.5 pg (27.0-33.0); MEAN CORPUSCULAR HGB CONC 33.2 g/dl (32.0-36.5); MEAN CORPUSCULAR VOLUME 97.7 fl (80.0-96.0); RED BLOOD COUNT 3.45 10^6/uL (4.00-5.40); WHITE BLOOD COUNT 5.1 10^3/uL (4.0-10.0)
[2021-04-21 06:13] LABS: PLATELET COUNT, AUTOMATED 93 10^3/uL (150-450)
[2021-04-21 06:14] LABS: HEMOGLOBIN 11.2 g/dl (12.0-15.5)
[2021-04-21 06:29] LABS: ALBUMIN 2.5 GM/DL (3.2-5.2); ALT/SGPT 30 U/L (12-78); BILIRUBIN,TOTAL 1.1 MG/DL (0.2-1.0); BLOOD UREA NITROGEN 12 MG/DL (7-18); CALCIUM LEVEL 8.1 MG/DL (8.8-10.2); CARBON DIOXIDE LEVEL 25 MEQ/L (21-32); CHLORIDE LEVEL 109 MEQ/L (98-107); CREATININE FOR GFR 0.59 MG/DL (0.55-1.30); GLOMERULAR FILTRATION RATE > 60.0 (>45); GLUCOSE, FASTING 88 MG/DL (70-100); MAGNESIUM LEVEL 2.1 MG/DL (1.8-2.4); POTASSIUM SERUM 3.6 MEQ/L (3.5-5.1); SODIUM LEVEL 139 MEQ/L (136-145); TOTAL PROTEIN 5.7 GM/DL (6.4-8.2)
[2021-04-21] MEDS: THIAMINE 100 MG TAB PO SCH (08:33)
[2021-04-21] MEDS: HEPARIN SOD (PORCINE) 5000UNITS/ML 1ML VIAL/SYRINGE SC SCH (08:33)
[2021-04-21] MEDS ORDERED: MULTIVITAMINS/MINERALS THERAP 1 TAB PO SCH (09:00)
[2021-04-21] MEDS ORDERED: FOLIC ACID 1 MG TAB PO SCH ×2 (09:00)
[2021-04-21] MEDS ORDERED: THIAMINE 100 MG TAB PO SCH (09:00)
[2021-04-21] MEDS ORDERED: VITMTA PO (11:01)
--- NOTE | 2021-04-21 17:01 | DS.PDOC ---
Discharge Summary General Date of Admission Apr 20, 2021 at 12:57 Date of Discharge April 21, 2021 Attending Physician: SOL BECERRA MD Discharge Summary PROCEDURES PERFORMED DURING STAY: None. ADMITTING DIAGNOSES: 1. Metabolic encephalopathy 2. Alcohol abuse 3. Elevated TSH. DISCHARGE DIAGNOSES: 1. Metabolic encephalopathy secondary to alcohol intoxication 2. Alcohol abuse 3. Elevated TSH with normal free T4. COMPLICATIONS/CHIEF COMPLAINT: Alcohol Abuse/ Wernicke Encephalopathy. HISTORY OF PRESENT ILLNESS: Patient is a 65-year-old female who presented to the emergency department at the direction of her life partner who had found her passed out due to alcohol intoxication. She was brought in by EMS and was apparently complaining of left second toe pain. The patient was found to have an alcohol level of 0.224. Her UDS was also positive for cannabis. Addit ionally, the patient was found to have a mildly elevated lactic acid level without leukocytosis. CT head was negative for acute pathology or bleeding. TSH was also found to be mildly elevated at 5.2. Due to persistent confusion, hospitalist team was called for admission. HOSPITAL COURSE: Patient was admitted to the hospital and started on CIWA protocol to monitor for withdrawal symptoms. She only required 1 dose of Ativan for withdrawal symptoms. Her confusion improved on admission. Further work-up for possible infectious etiology showed a UA with pyuria. Urine culture did not grow any significant infection. A free T4 level was obtained and was normal, clinically indicating possible sick euthyroid syndrome as a cause of her elevated TSH. This can be followed up in the outpatient setting. Is not clear based on her med rec that she is on any thyroid supplement medication. I did try to reach out to the patient's life partner, however did I did not have any contact information for her. 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 The patient was noted to have elevated blood pressures during her admission and was started on lisinopril. However, we will not continue this on discharge as her high blood pressure may be related more to her withdrawal than underlying essential hypertension. The patient was evaluated by PT and OT prior to discharge and was found to be functional at her baseline mobility. On the day of discharge, I discussed with the patient her alcohol use. She would not admit to drinking more than 3 beers at a time and states that she does this only a few times during the week. I did recommend alcohol cessation to the patient and discussed with her the negative impact that excessive alcohol intake has on her health. She was not open to discussing any resources for alcohol abuse counseling. DISCHARGE MEDICATIONS: Please see below. ALLERGIES: Please see below. PHYSICAL EXAMINATION ON DISCHARGE: VITAL SIGNS: Please see below. GENERAL: Alert, comfortable, in no acute distress HEENT: Normocephalic, atraumatic, PERRLA, EOMI, moist mucous membranes NECK: Supple, trachea midline, no lymphadenopathy CARDIOVASCULAR: Regular rate and rhythm, normal S1 and S2. No murmurs, rubs, or gallops RESPIRATORY: Clear to auscultation bilaterally with equal air entry bilaterally. No wheezing, rhonchi, or rales. ABDOMEN: Soft, nontender, nondistended, bowel sounds present. EXTREMITIES: No cyanosis or edema. Pulses 2+/4 in bilateral upper and lower extremities NEUROLOGIC: Alert and oriented x3 to person, place and time. No focal deficits appreciated PSYCHIATRIC: Mood and affect appropriate LABORATORY DATA: Please see below. IMAGING: (Impressions per radiologist report) Head CT No acute intracranial pathology is appreciated. Chronic atrophic and microischemic changes. The brain had a similar appearance 7 months ago. Chest x-ray No acute findings. PROGNOSIS: Fair ACTIVITY: As tolerated. DIET: As tolerated DISCHARGE PLAN/DISPOSITION: Home DISCHARGE INSTRUCTIONS: Follow-up with your PCP in 7-10 days Discuss alcohol and tobacco cessation with your doctor. You may benefit from rehabilitation to help you stop drinking alcohol. If your symptoms return or your condition worsens, please call your PCP or return to the ED for further evaluation. DISCHARGE CONDITION: Stable. TIME SPENT ON DISCHARGE: 35 minutes. Vital Signs/I&Os Vital Signs Date Time Temp Pulse Resp B/P (MAP) Pulse Ox O2 Delivery O2 Flow Rate FiO2 04/21/21 06:00 98.2 90 22 127/74 (91) 94 Room Air I&O- Last 24 Hours up to 6 AM 04/21/21 06:00 Intake Total 2440 ml Output Total 0 ml Balance 2440 ml Laboratory Data Labs 24H Laboratory Tests 2 04/20/21 11:41: Coronavirus (COVID-19)(PCR) NEGATIVE, Influenza Type A (RT-PCR) NEGATIVE, Influenza Type B (RT-PCR) NEGATIVE, Respiratory Syncytial Virus (PCR) NEGATIVE 04/20/21 13:33: Lactic Acid Level 2.3*H, Thyroid Stimulating Hormone (TSH) 2.670, Free Thyroxine Index 3.3, Thyroxine (T4) 10.3, Triiodothyronine (T3) Uptake 32 04/20/21 18:25: Lactic Acid Followup at 4 Hours 1.1 04/21/21 05:34: Nucleated Red Blood Cells % (auto) 0.0, Immature Platelet Fraction 3.5, Anion Gap 5L, Glomerular Filtration Rate > 60.0, Calcium Level 8.1L, Magnesium Level 2.1, Total Bilirubin 1.1H, Aspartate Amino Transf (AST/SGOT) 43H, Alanine Aminotransferase (ALT/SGPT) 30, Alkaline Phosphatase 83, Total Protein 5.7L, Albumin 2.5#L, Albumin/Globulin Ratio 0.8L CBC/BMP Laboratory Tests 04/21/21 05:34 Microbiology Microbiology 04/20/21 Urine Culture - Final, Complete Discharge Medications Scheduled Folic Acid (Folic Acid) 1 Mg Tablet, 1 MG PO DAILY, (Reported) Levothyroxine Sodium (Synthroid) 25 Mcg Tablet, 25 MCG PO DAILY, (Reported) Multivitamins (Thera M Plus Tablet) 1 Each Tablet, 1 TAB PO DAILY Take one tablet by mouth once daily Thiamine HCl (Vitamin B-1) 100 Mg Tablet, 100 MG PO DAILY, (Reported) Allergies Coded Allergies: No Known Drug Allergies (Verified Allergy, Unknown, 09/26/20) CUCA ECRON D.O. Apr 21, 2021 11:35
== END 2021-04-21 17:39 | disposition home or self-care (01) | DRG 775 ==
LOC: M ED 01:22 → M ED INP 12:57 → ENRESERV 13:52 → M MSPAV 14:51
PROVIDERS: ADMIT Internal Medicine; ATTEND Internal Medicine
DX: F10.129 Alcohol abuse with intoxication, unspecified (principal); E51.2 Wernicke's encephalopathy; E03.9 Hypothyroidism, unspecified

== ENCOUNTER 2021-08-31 01:59 | Inpatient (IN) | payer MEDICARE, OTHER ==
[2021-08-31] VITALS (7 sets, daily range): BP systolic 115–174; BP diastolic 62–81
[~2021-08-31] VITALS: Ht 157.5 cm; Wt 57.5 kg
[~2021-08-31 01:59] MED LIST changes: +B-1100TA2 PO; +SYNT25TA PO; +VITMTA PO
[2021-08-31 02:24] LABS: HEMATOCRIT 46.5 % (36.0-47.0); MEAN CORPUSCULAR HEMOGLOBIN 32.3 pg (27.0-33.0); MEAN CORPUSCULAR HGB CONC 32.3 g/dl (32.0-36.5); PLATELET COUNT, AUTOMATED 206 10^3/uL (150-450); RED BLOOD COUNT 4.65 10^6/uL (4.00-5.40); WHITE BLOOD COUNT 14.5 10^3/uL (4.0-10.0)
[2021-08-31] MEDS ORDERED: NS 1,000 ML IV STA (02:40)
[2021-08-31 02:41] LABS: ABG BASE EXCESS -16.5 (-2.0-2.0); ABG HCO3 10.3 MEQ/L (22.0-26.0); ABG O2 SATURATION 98.4 % (95.0-99.0); ABG PARTIAL PRESSURE CO2 28.1 mmHg (35.0-45.0); ABG PARTIAL PRESSURE O2 150.3 mmHg (75.0-100.0); ABG STANDARD HCO3 12.3 MEQ/L (22.0-26.0); ABG TOTAL CO2 11.1 MEQ/L (23.0-31.0)
[2021-08-31 02:46] LABS: ABG pH (ARTERIAL) 7.181 UNITS (7.350-7.450)
[2021-08-31 02:53] LABS: ACETAMINOPHEN LEVEL 4.7 UG/ML (10.0-30.0); ALBUMIN 3.6 GM/DL (3.2-5.2); ALT/SGPT 29 U/L (12-78); BILIRUBIN,DIRECT 0.6 MG/DL (0.0-0.2); BILIRUBIN,TOTAL 0.9 MG/DL (0.2-1.0); BLOOD UREA NITROGEN 10 MG/DL (7-18); CALCIUM LEVEL 8.5 MG/DL (8.8-10.2); CARBON DIOXIDE LEVEL 12 MEQ/L (21-32); CHLORIDE LEVEL 106 MEQ/L (98-107); CREATININE FOR GFR 0.84 MG/DL (0.55-1.30); ETHYL ALCOHOL (ETHANOL) 0.231 % (0.000-0.010); GLOMERULAR FILTRATION RATE > 60.0 (>45); GLUCOSE, FASTING 135 MG/DL (70-100); POTASSIUM SERUM 4.6 MEQ/L (3.5-5.1); SALICYLATE LEVEL < 1.7 MG/DL (5.0-30.0); SODIUM LEVEL 138 MEQ/L (136-145); TOTAL PROTEIN 8.2 GM/DL (6.4-8.2)
[2021-08-31] MEDS ORDERED: NS IV SCH (02:55)
[2021-08-31] MEDS ORDERED: SODIUM BICARBONATE IV SCH (02:55)
[2021-08-31 03:04] LABS: AMPHETAMINES LEVEL URINE NEGATIVE (NEGATIVE); BARBITURATES URINE NEGATIVE (NEGATIVE); BENZODIAZEPINES URINE NEGATIVE (NEGATIVE); CANNABINOIDS URINE NEGATIVE (NEGATIVE); COCAINE METABOLITE URINE NEGATIVE (NEGATIVE); METHADONE URINE NEGATIVE (NEGATIVE); OPIATES URINE NEGATIVE (NEGATIVE); PHENCYCLIDINE URINE NEGATIVE (NEGATIVE)
[2021-08-31 03:15] LABS: CK-MB VALUE MASS 2.9 NG/ML (<3.6); MB/CK RELATIVE INDEX 1.46 (< OR =4)
[2021-08-31 03:16] LABS: ATYPICAL LYMPH 1 % (0-5); BASOPHILS 1 % (0-1); EOSINOPHILS 3 % (0-3); LYMPHOCYTES 38 % (16-44); MONOCYTES 6 % (0-5); NEUTROPHILS 51 % (28-66); PLATELET ESTIMATE NORMAL (NORMAL)
[2021-08-31 03:17] LABS: PLATELET CLUMPS SMALL AMT; SMUDGE CELLS 1+
[2021-08-31 03:32] LABS: RSV AMPLIFICATION NEGATIVE (NEGATIVE)
[2021-08-31] MEDS: SODIUM BICARBONATE 150 MEQ in D5W 1,000 ML IV SCH ×2 (04:18→15:17)
[2021-08-31] MEDS ORDERED: HOME MED LIST COMPLETE! XX SCH (05:10)
[2021-08-31] MEDS ORDERED: ALBUTEROL SULFATE 2.5 MG/0.5 ML INH NEB SOLN NEB PRN (05:40)
[2021-08-31] MEDS ORDERED: THIAMINE 200MG 2ML VIAL IM ONE (05:40)
[2021-08-31] MEDS ORDERED: CEFEPIME HCL 2 GM in D5W MINI-BAG PLUS 50 ML IV ONE (05:55)
[2021-08-31] MEDS ORDERED: NS 1,000 ML IV ONE (06:00)
[2021-08-31] MEDS: HEPARIN SOD (PORCINE) 5000UNITS/ML 1ML VIAL/SYRINGE SC SCH ×3 (06:19→21:06)
[2021-08-31 06:23] LABS: BLOOD UREA NITROGEN 10 MG/DL (7-18); CALCIUM LEVEL 7.9 MG/DL (8.8-10.2); CARBON DIOXIDE LEVEL 17 MEQ/L (21-32); CHLORIDE LEVEL 109 MEQ/L (98-107); CREATININE FOR GFR 0.68 MG/DL (0.55-1.30); GLOMERULAR FILTRATION RATE > 60.0 (>45); GLUCOSE, FASTING 100 MG/DL (70-100); POTASSIUM SERUM 4.5 MEQ/L (3.5-5.1); SODIUM LEVEL 141 MEQ/L (136-145)
[2021-08-31 08:02] LABS: BLOOD UREA NITROGEN 10 MG/DL (7-18); CALCIUM LEVEL 7.4 MG/DL (8.8-10.2); CARBON DIOXIDE LEVEL 19 MEQ/L (21-32); CHLORIDE LEVEL 109 MEQ/L (98-107); CREATININE FOR GFR 0.53 MG/DL (0.55-1.30); GLOMERULAR FILTRATION RATE > 60.0 (>45); GLUCOSE, FASTING 93 MG/DL (70-100); PHOSPHORUS LEVEL 2.7 MG/DL (2.5-4.9); POTASSIUM SERUM 3.3 MEQ/L (3.5-5.1); SODIUM LEVEL 141 MEQ/L (136-145)
[2021-08-31] MEDS: CHLORHEXIDINE GLUCONATE 0.12 % 15ML UDC (PERIDEX ORAL RINSE) MT SCH ×2 (09:00→21:06)
[2021-08-31] MEDS ORDERED: LACRILUBE (AKWA TEARS) OPHTH OINT 3.5 GM OU SCH (09:00)
[2021-08-31] MEDS: PANTOPRAZOLE 40MG VIAL (C9113 PER 1) IV SCH (09:46)
[2021-08-31] MEDS: KCL 10MEQ/100ML SWI (KRUN) 10 MEQ in IV 1 EA IV SCH ×3 (09:46→12:52)
[2021-08-31] MEDS: LACTULOSE 20 GM/30 ML SYRUP UD PO SCH ×2 (11:35→21:06)
[2021-08-31] MEDS: FOLIC ACID 1 MG TAB PO SCH (11:35)
[2021-08-31] MEDS: MULTIVITAMINS/MINERALS THERAP 1 TAB PO SCH (11:35)
[2021-08-31] MEDS ORDERED: ASPIRIN 325 MG TAB PO ONE (13:55)
[2021-08-31 14:41] LABS: CHOLESTEROL LEVEL 90 MG/DL (<200); CHOLESTEROL RISK RATIO 2.195 (<5); HDL CHOLESTEROL 41 MG/DL (>40); LDL CHOLESTEROL 32 MG/DL (<100); NON-HDL-C 49 MG/DL; TRIGLYCERIDES LEVEL 84 MG/DL (<150)
[2021-08-31] MEDS: cefTRIAXone SOD 1 GM in D5W MINI-BAG PLUS 50 ML IV SCH (15:05)
[2021-08-31] MEDS: THIAMINE INJection 500 MG in NS 100 ML IV SCH ×2 (15:17→21:06)
[2021-08-31 16:44] LABS: BLOOD UREA NITROGEN 9 MG/DL (7-18); CALCIUM LEVEL 7.5 MG/DL (8.8-10.2); CARBON DIOXIDE LEVEL 25 MEQ/L (21-32); CHLORIDE LEVEL 107 MEQ/L (98-107); CREATININE FOR GFR 0.45 MG/DL (0.55-1.30); GLOMERULAR FILTRATION RATE > 60.0 (>45); GLUCOSE, FASTING 87 MG/DL (70-100); MAGNESIUM LEVEL 2.1 MG/DL (1.8-2.4); PHOSPHORUS LEVEL 2.2 MG/DL (2.5-4.9); POTASSIUM SERUM 3.3 MEQ/L (3.5-5.1); SODIUM LEVEL 141 MEQ/L (136-145)
[2021-08-31] MEDS ORDERED: POTASSIUM CHLORIDE 10MEQ SR TABLET PO ONE (18:00)
[2021-08-31] MEDS: K-PHOS ORIGINAL (POT.ACID PHOSPHATE) 500MG TAB PO SCH (18:34)
[2021-08-31] MEDS ORDERED: K-PHOS ORIGINAL (POT.ACID PHOSPHATE) 500MG TAB PO SCH (21:00)
[2021-08-31] MEDS ORDERED: THIAMINE 100 MG TAB PO SCH (21:00)
[2021-08-31 22:28] LABS: HEMOGLOBIN A1c 4.6 %
[2021-09-01] VITALS (12 sets, daily range): BP systolic 102–147; BP diastolic 55–75
[2021-09-01 03:59] LABS: MEAN CORPUSCULAR HEMOGLOBIN 32.3 pg (27.0-33.0); MEAN CORPUSCULAR HGB CONC 33.4 g/dl (32.0-36.5); MEAN CORPUSCULAR VOLUME 96.7 fl (80.0-96.0); PLATELET COUNT, AUTOMATED 112 10^3/uL (150-450); RED BLOOD COUNT 3.62 10^6/uL (4.00-5.40); WHITE BLOOD COUNT 8.7 10^3/uL (4.0-10.0)
[2021-09-01 04:00] LABS: HEMOGLOBIN 11.7 g/dl (12.0-15.5)
[2021-09-01 04:20] LABS: BLOOD UREA NITROGEN 9 MG/DL (7-18); CALCIUM LEVEL 7.7 MG/DL (8.8-10.2); CARBON DIOXIDE LEVEL 26 MEQ/L (21-32); CHLORIDE LEVEL 110 MEQ/L (98-107); CREATININE FOR GFR 0.58 MG/DL (0.55-1.30); GLOMERULAR FILTRATION RATE > 60.0 (>45); GLUCOSE, FASTING 82 MG/DL (70-100); MAGNESIUM LEVEL 2.2 MG/DL (1.8-2.4); PHOSPHORUS LEVEL 2.1 MG/DL (2.5-4.9); POTASSIUM SERUM 3.8 MEQ/L (3.5-5.1); SODIUM LEVEL 141 MEQ/L (136-145)
[2021-09-01] MEDS: HEPARIN SOD (PORCINE) 5000UNITS/ML 1ML VIAL/SYRINGE SC SCH ×3 (05:18→21:08)
[2021-09-01] MEDS: K-PHOS ORIGINAL (POT.ACID PHOSPHATE) 500MG TAB PO SCH ×2 (05:18→18:17)
[2021-09-01] MEDS: THIAMINE INJection 500 MG in NS 100 ML IV SCH ×3 (05:19→21:58)
[2021-09-01] MEDS: LACTULOSE 20 GM/30 ML SYRUP UD PO SCH ×2 (07:14→20:20)
[2021-09-01] MEDS: FOLIC ACID 1 MG TAB PO SCH (07:54)
[2021-09-01] MEDS: PANTOPRAZOLE 40MG VIAL (C9113 PER 1) IV SCH (07:54)
[2021-09-01] MEDS: MULTIVITAMINS/MINERALS THERAP 1 TAB PO SCH (07:54)
[2021-09-01] MEDS: CHLORHEXIDINE GLUCONATE 0.12 % 15ML UDC (PERIDEX ORAL RINSE) MT SCH (07:54)
[2021-09-01 10:21] LABS: INR 1.35; PROTHROMBIN TIME 17.1 SECONDS (12.7-14.5)
[2021-09-01 10:22] LABS: PARTIAL THROMBOPLASTIN TIME 39.9 SECONDS (25.9-37.0)
[2021-09-01 11:03] LABS: FERRITIN 178 NG/ML (8-252); FOLATE > 24.0 NG/ML (>5.4); IRON (FE) 170 UG/DL (50-170); PERCENT SATURATION 85.4 % (13.2-45.0); TOTAL IRON BINDING CAPACITY 199 UG/DL (250-450); VITAMIN B12 LEVEL 344 PG/ML (247-911)
[2021-09-01] MEDS: cefTRIAXone SOD 1 GM in D5W MINI-BAG PLUS 50 ML IV SCH (12:57)
[2021-09-01 13:44] LABS: SOURCE, BODY FLUID ALBUMIN ASCITES; SOURCE, BODY FLUID GLUCOSE ASCITES; SOURCE, BODY FLUID TOT PROTEIN ASCITES; TOTAL PROTEIN, BODY FLUID 0.9 G/DL (NOT ESTABLISHED)
[2021-09-01 13:49] LABS: APPEARANCE, BODY FLUID CLEAR (CLEAR); ASCITES FL COLOR PALE YELLOW (COLORLESS); SOURCE, BODY FLUID ASCITES
[2021-09-01 17:42] LABS: ALBUMIN 2.8 GM/DL (3.2-5.2); ALT/SGPT 24 U/L (12-78); BILIRUBIN,DIRECT 0.6 MG/DL (0.0-0.2); BILIRUBIN,TOTAL 1.3 MG/DL (0.2-1.0); TOTAL PROTEIN 5.8 GM/DL (6.4-8.2)
[2021-09-02] VITALS: BP 123/62
[2021-09-02 03:45] VITALS: BP 135/60
[2021-09-02] MEDS: K-PHOS ORIGINAL (POT.ACID PHOSPHATE) 500MG TAB PO SCH (05:00)
[2021-09-02] MEDS: HEPARIN SOD (PORCINE) 5000UNITS/ML 1ML VIAL/SYRINGE SC SCH ×2 (05:00→14:05)
[2021-09-02 05:07] LABS: HEMATOCRIT 31.6 % (36.0-47.0); HEMOGLOBIN 10.6 g/dl (12.0-15.5); MEAN CORPUSCULAR HEMOGLOBIN 32.2 pg (27.0-33.0); MEAN CORPUSCULAR HGB CONC 33.5 g/dl (32.0-36.5); RED BLOOD COUNT 3.29 10^6/uL (4.00-5.40); WHITE BLOOD COUNT 5.3 10^3/uL (4.0-10.0)
[2021-09-02 05:23] LABS: PLATELET COUNT, AUTOMATED 82 10^3/uL (150-450)
[2021-09-02 05:29] LABS: BLOOD UREA NITROGEN 9 MG/DL (7-18); CALCIUM LEVEL 7.6 MG/DL (8.8-10.2); CARBON DIOXIDE LEVEL 26 MEQ/L (21-32); CHLORIDE LEVEL 111 MEQ/L (98-107); CREATININE FOR GFR 0.56 MG/DL (0.55-1.30); GLOMERULAR FILTRATION RATE > 60.0 (>45); GLUCOSE, FASTING 84 MG/DL (70-100); MAGNESIUM LEVEL 2.1 MG/DL (1.8-2.4); PHOSPHORUS LEVEL 2.1 MG/DL (2.5-4.9); POTASSIUM SERUM 3.1 MEQ/L (3.5-5.1); SODIUM LEVEL 142 MEQ/L (136-145)
[2021-09-02 05:56] VITALS: BP 131/61
[2021-09-02] MEDS: THIAMINE INJection 500 MG in NS 100 ML IV SCH ×2 (06:09→14:06)
[2021-09-02 08:00] VITALS: BP 129/60
[2021-09-02] MEDS: PANTOPRAZOLE 40MG VIAL (C9113 PER 1) IV SCH (08:51)
[2021-09-02] MEDS: LACTULOSE 20 GM/30 ML SYRUP UD PO SCH (08:51)
[2021-09-02] MEDS: POTASSIUM CHLORIDE 10MEQ SR TABLET PO SCH ×2 (08:52→10:51)
[2021-09-02] MEDS: FOLIC ACID 1 MG TAB PO SCH (08:52)
[2021-09-02] MEDS: MULTIVITAMINS/MINERALS THERAP 1 TAB PO SCH (08:52)
[2021-09-02] MEDS ORDERED: SPIRONOLACTONE 25 MG TAB PO SCH (09:00)
[2021-09-02] MEDS: GASTROGRAFIN SOLUTION 30ML PO SCH ×2 (10:51→11:24)
[2021-09-02] MEDS ORDERED: ISOVUE-370 76% 100ML VIAL As Ordered ONE (12:29)
[2021-09-02 14:35] LABS: ALBUMIN 2.6 GM/DL (3.2-5.2); ALT/SGPT 22 U/L (12-78); BILIRUBIN,DIRECT 0.5 MG/DL (0.0-0.2); BILIRUBIN,TOTAL 1.2 MG/DL (0.2-1.0); TOTAL PROTEIN 5.4 GM/DL (6.4-8.2)
[2021-09-02] MEDS ORDERED: FURO20TA2 PO (15:08)
[2021-09-02] MEDS ORDERED: FOLI1TAB11 PO (15:08)
[2021-09-02] MEDS ORDERED: ALDA25TA2 PO (15:08)
[2021-09-02] MEDS ORDERED: LACT20EL PO (15:08)
[2021-09-02] MEDS ORDERED: THIA100TA PO (15:08)
[2021-09-03] MEDS ORDERED: THIAMINE 100 MG TAB PO SCH (09:00)
[2021-09-03] MEDS ORDERED: FUROSEMIDE 10MG PER 1/2 TABLET PO SCH (09:00)
== END 2021-09-02 16:14 | disposition home health service (06) | DRG 441 ==
LOC: M ED 01:59 → M ED INP 05:40 → ENRESERV 06:25 → M ICU 10:21 → M PCU 09-02 05:54
PROVIDERS: ADMIT Internal Medicine; ATTEND Internal Medicine
PROC: 0W9G3ZZ Drainage of Peritoneal Cavity, Percutaneous Approach (ICD-10-PCS; principal; 2021-09-01 15:00)
DX: K72.90 Hepatic failure, unspecified without coma (principal); G93.41 Metabolic encephalopathy; G92.9 Unspecified toxic encephalopathy; I21.4 Non-ST elevation (NSTEMI) myocardial infarction; E87.2 Acidosis; S26.91XA Contusion of heart, unspecified with or without hemopericardium, initial encounter; F10.20 Alcohol dependence, uncomplicated; E87.6 Hypokalemia; E03.9 Hypothyroidism, unspecified; T68.XXXA Hypothermia, initial encounter; I10 Essential (primary) hypertension; K70.31 Alcoholic cirrhosis of liver with ascites; W18.30XA Fall on same level, unspecified, initial encounter; Y92.009 Unspecified place in unspecified non-institutional (private) residence as the place of occurrence of the external cause

== ENCOUNTER 2021-11-20 09:23 | Inpatient (IN) | payer MEDICARE, OTHER ==
[~2021-11-20] VITALS: Ht 160 cm; Wt 53.6 kg
[~2021-11-20 09:23] MED LIST changes: +ALDA25TA2 PO; +FURO20TA2 PO; +LACT20EL PO
[2021-11-20] MEDS ORDERED: THIAMINE 200MG 2ML VIAL IM ONE (10:05)
[2021-11-20 10:17] LABS: BASO # 0.1 10^3/uL (0.0-0.2); BASO % 1.2 % (0.0-1.0); EOS # 0.4 10^3/uL (0.0-0.5); EOS % 5.2 % (0.0-3.0); HEMATOCRIT 40.7 % (36.0-47.0); HEMOGLOBIN 13.7 g/dl (12.0-15.5); LYMPH # 1.8 10^3/uL (1.5-5.0); LYMPH % 24.1 % (24.0-44.0); MEAN CORPUSCULAR HGB CONC 33.7 g/dl (32.0-36.5); MONO # 0.8 10^3/uL (0.0-0.8); MONO % 10.6 % (2.0-8.0); NEUTROPHILS # 4.3 10^3/uL (1.5-8.5); NEUTROPHILS % 58.6 % (36.0-66.0); PLATELET COUNT, AUTOMATED 142 10^3/uL (150-450); RED BLOOD COUNT 4.03 10^6/uL (4.00-5.40); WHITE BLOOD COUNT 7.3 10^3/uL (4.0-10.0)
[2021-11-20 10:27] LABS: INR 1.05; PROTHROMBIN TIME 14.1 SECONDS (12.7-14.5)
[2021-11-20 10:53] LABS: ALBUMIN 3.1 GM/DL (3.2-5.2); BILIRUBIN,DIRECT 0.5 MG/DL (0.0-0.2); CALCIUM LEVEL 8.5 MG/DL (8.8-10.2); CREATININE FOR GFR 1.09 MG/DL (0.55-1.30); GLOMERULAR FILTRATION RATE 53.3 (>45); POTASSIUM SERUM 3.4 MEQ/L (3.5-5.1); THYROID STIMULATING HORMONE 5.63 uIU/ML (0.358-3.740)
[2021-11-20 11:06] LABS: RSV AMPLIFICATION NEGATIVE (NEGATIVE)
[2021-11-20 11:58] LABS: ETHYL ALCOHOL (ETHANOL) 0.021 % (0.000-0.010); MAGNESIUM LEVEL 2.3 MG/DL (1.8-2.4)
[2021-11-20 13:00] LABS: AMPHETAMINES LEVEL URINE NEGATIVE (NEGATIVE); BARBITURATES URINE NEGATIVE (NEGATIVE); BENZODIAZEPINES URINE NEGATIVE (NEGATIVE); CANNABINOIDS URINE NEGATIVE (NEGATIVE); COCAINE METABOLITE URINE NEGATIVE (NEGATIVE); METHADONE URINE NEGATIVE (NEGATIVE); OPIATES URINE NEGATIVE (NEGATIVE); PHENCYCLIDINE URINE NEGATIVE (NEGATIVE)
[2021-11-20] MEDS ORDERED: med note (14:56)
[2021-11-20] MEDS ORDERED: HOME MED LIST COMPLETE! XX SCH (15:00)
[2021-11-20] MEDS ORDERED: LORazepam 2 MG TAB PO PRN (17:15)
[2021-11-20] MEDS ORDERED: MAALOX 30 ML SUSP *UDC PO PRN (17:15)
[2021-11-20] MEDS ORDERED: MOM 30ML SUSPENSION UDC PO PRN (17:15)
[2021-11-20] MEDS ORDERED: THIAMINE INJection 500 MG in NS 100 ML IV SCH (21:00)
[2021-11-20] MEDS: LACTULOSE 20 GM/30 ML SYRUP UD PO SCH (23:06)
[2021-11-20] MEDS: ACETAMINOPHEN TAB 650MG DOSE (2X325MG) PO PRN (23:07)
[2021-11-20] MEDS: cefTRIAXone SOD 1 GM in D5W MINI-BAG PLUS 50 ML IV SCH (23:08)
[2021-11-20 23:09] VITALS: BP 137/88
[2021-11-21] VITALS (9 sets, daily range): BP systolic 100–167; BP diastolic 59–93; O2SAT 92–96
[2021-11-21] MEDS: THIAMINE INJection 500 MG in NS 100 ML IV SCH ×4 (00:32→22:11)
[2021-11-21 08:06] LABS: BASO # 0.1 10^3/uL (0.0-0.2); BASO % 0.8 % (0.0-1.0); EOS # 0.3 10^3/uL (0.0-0.5); HEMATOCRIT 36.8 % (36.0-47.0); HEMOGLOBIN 11.9 g/dl (12.0-15.5); LYMPH % 25.4 % (24.0-44.0); MEAN CORPUSCULAR HGB CONC 32.3 g/dl (32.0-36.5); MEAN CORPUSCULAR VOLUME 101.9 fl (80.0-96.0); MONO % 11.9 % (2.0-8.0); NEUTROPHILS # 4.6 10^3/uL (1.5-8.5); NEUTROPHILS % 57.6 % (36.0-66.0); PLATELET COUNT, AUTOMATED 120 10^3/uL (150-450); RED BLOOD COUNT 3.61 10^6/uL (4.00-5.40)
[2021-11-21 08:45] LABS: ALBUMIN 2.5 GM/DL (3.2-5.2); BILIRUBIN,TOTAL 1.4 MG/DL (0.2-1.0); CALCIUM LEVEL 8.1 MG/DL (8.8-10.2); CREATININE FOR GFR 1.06 MG/DL (0.55-1.30); MAGNESIUM LEVEL 2.1 MG/DL (1.8-2.4); POTASSIUM SERUM 3.2 MEQ/L (3.5-5.1); TOTAL PROTEIN 6.3 GM/DL (6.4-8.2)
[2021-11-21] MEDS: FUROSEMIDE 10MG PER 1/2 TABLET PO SCH (08:50)
[2021-11-21] MEDS: LACTULOSE 20 GM/30 ML SYRUP UD PO SCH ×3 (08:50→21:05)
[2021-11-21] MEDS: FOLIC ACID 1 MG TAB PO SCH (08:50)
[2021-11-21] MEDS: SPIRONOLACTONE 25 MG TAB PO SCH (08:50)
[2021-11-21] MEDS: MULTIVITAMINS/MINERALS THERAP 1 TAB PO SCH (08:50)
[2021-11-21 14:41] LABS: SPEC. GRAVITY BODY FLUIDS 1.011 (NOT ESTABLISHED)
[2021-11-21 14:44] LABS: APPEARANCE, BODY FLUID HAZY (CLEAR); ASCITES FL COLOR PALE YELLOW (COLORLESS); SOURCE, BODY FLUID ASCITES
[2021-11-21 15:03] LABS: SOURCE, BODY FLUID ALBUMIN ASCITES; SOURCE, BODY FLUID GLUCOSE ASCITES; SOURCE, BODY FLUID TOT PROTEIN ASCITES; TOTAL PROTEIN, BODY FLUID 0.8 G/DL (NOT ESTABLISHED)
[2021-11-21] MEDS: ACETAMINOPHEN TAB 650MG DOSE (2X325MG) PO PRN ×2 (15:47→21:09)
[2021-11-21 17:52] LABS: CK-MB VALUE MASS < 1.0 NG/ML (<3.6); CPK CREATINE PHOSPHOKINASE 62 U/L (26-192); MB/CK RELATIVE INDEX 1.61 (< OR =4)
[2021-11-21] MEDS: cefTRIAXone SOD 1 GM in D5W MINI-BAG PLUS 50 ML IV SCH (21:05)
[2021-11-22 00:02] VITALS: BP 108/60
[2021-11-22 02:00] VITALS: BP 111/64
[2021-11-22 05:35] VITALS: BP 112/68
[2021-11-22] MEDS: THIAMINE INJection 500 MG in NS 100 ML IV SCH (05:56)
[2021-11-22] MEDS ORDERED: PREVNAR 13 VACCINE SYRINGE IM.IMMUN ONE (09:00)
[2021-11-22] MEDS ORDERED: FLUBLOK(EGG FREE)(QUAD)INFLUENZA VACC 0.5ML SYRINGE 18YRS & OLDER IM.IMMUN ONE (09:00)
[2021-11-22] MEDS: FOLIC ACID 1 MG TAB PO SCH (09:47)
[2021-11-22] MEDS: FUROSEMIDE 10MG PER 1/2 TABLET PO SCH (09:47)
[2021-11-22] MEDS: LACTULOSE 20 GM/30 ML SYRUP UD PO SCH ×3 (09:47→20:55)
[2021-11-22] MEDS: MULTIVITAMINS/MINERALS THERAP 1 TAB PO SCH (09:47)
[2021-11-22] MEDS: SPIRONOLACTONE 25 MG TAB PO SCH (09:47)
[2021-11-22 09:57] LABS: BASO # 0.1 10^3/uL (0.0-0.2); BASO % 0.8 % (0.0-1.0); EOS # 0.2 10^3/uL (0.0-0.5); EOS % 3.2 % (0.0-3.0); HEMATOCRIT 36.6 % (36.0-47.0); HEMOGLOBIN 12.1 g/dl (12.0-15.5); LYMPH # 1.8 10^3/uL (1.5-5.0); MEAN CORPUSCULAR HEMOGLOBIN 33.1 pg (27.0-33.0); MEAN CORPUSCULAR HGB CONC 33.1 g/dl (32.0-36.5); MONO # 0.8 10^3/uL (0.0-0.8); MONO % 10.6 % (2.0-8.0); NEUTROPHILS # 4.6 10^3/uL (1.5-8.5); NEUTROPHILS % 61.1 % (36.0-66.0); PLATELET COUNT, AUTOMATED 101 10^3/uL (150-450); RED BLOOD COUNT 3.66 10^6/uL (4.00-5.40); WHITE BLOOD COUNT 7.5 10^3/uL (4.0-10.0)
[2021-11-22] MEDS: ACETAMINOPHEN TAB 650MG DOSE (2X325MG) PO PRN (10:05)
[2021-11-22 10:31] LABS: ALBUMIN 2.8 GM/DL (3.2-5.2); CALCIUM LEVEL 8.6 MG/DL (8.8-10.2); CREATININE FOR GFR 1.28 MG/DL (0.55-1.30); GLOMERULAR FILTRATION RATE 44.3 (>45); MAGNESIUM LEVEL 2.3 MG/DL (1.8-2.4); TOTAL PROTEIN 5.9 GM/DL (6.4-8.2)
[2021-11-22 13:59] VITALS: O2SAT 97
[2021-11-22 14:00] VITALS: BP 110/63
[2021-11-22] MEDS ORDERED: KCL 10MEQ/100ML SWI (KRUN) 10 MEQ in IV 1 EA IV SCH (17:00)
[2021-11-22] MEDS ORDERED: POTASSIUM CHLORIDE 10MEQ SR TABLET PO ONE ×2 (17:00→19:50)
[2021-11-22] MEDS: CIPROFLOXACIN 500MG TABLET PO SCH (18:54)
[2021-11-23] MEDS: CIPROFLOXACIN 500MG TABLET PO SCH ×2 (05:18→17:40)
[2021-11-23 05:51] VITALS: BP 115/72
[2021-11-23 07:03] LABS: BLOOD UREA NITROGEN 17 MG/DL (7-18); CALCIUM LEVEL 8.2 MG/DL (8.8-10.2); CARBON DIOXIDE LEVEL 27 MEQ/L (21-32); CHLORIDE LEVEL 106 MEQ/L (98-107); CREATININE FOR GFR 0.97 MG/DL (0.55-1.30); GLOMERULAR FILTRATION RATE > 60.0 (>45); GLUCOSE, FASTING 102 MG/DL (70-100); POTASSIUM SERUM 3.7 MEQ/L (3.5-5.1); SODIUM LEVEL 140 MEQ/L (136-145)
[2021-11-23] MEDS: SPIRONOLACTONE 25 MG TAB PO SCH (08:55)
[2021-11-23] MEDS: MULTIVITAMINS/MINERALS THERAP 1 TAB PO SCH (08:55)
[2021-11-23] MEDS: THIAMINE 100 MG TAB PO SCH (08:55)
[2021-11-23] MEDS: FOLIC ACID 1 MG TAB PO SCH (08:55)
[2021-11-23] MEDS: FUROSEMIDE 10MG PER 1/2 TABLET PO SCH (08:55)
[2021-11-23] MEDS: LACTULOSE 20 GM/30 ML SYRUP UD PO SCH ×3 (08:56→19:58)
[2021-11-23 12:17] VITALS: O2SAT 96
[2021-11-23] MEDS: ACETAMINOPHEN TAB 650MG DOSE (2X325MG) PO PRN (17:40)
[2021-11-24] MEDS: CIPROFLOXACIN 500MG TABLET PO SCH ×2 (05:25→18:10)
[2021-11-24 06:00] VITALS: BP 108/58
[2021-11-24] MEDS: THIAMINE 100 MG TAB PO SCH (08:39)
[2021-11-24] MEDS: FOLIC ACID 1 MG TAB PO SCH (08:39)
[2021-11-24] MEDS: LACTULOSE 20 GM/30 ML SYRUP UD PO SCH ×3 (08:39→20:12)
[2021-11-24] MEDS: FUROSEMIDE 10MG PER 1/2 TABLET PO SCH (08:39)
[2021-11-24] MEDS: MULTIVITAMINS/MINERALS THERAP 1 TAB PO SCH (08:39)
[2021-11-24] MEDS: SPIRONOLACTONE 25 MG TAB PO SCH (08:39)
[2021-11-24] MEDS: ACETAMINOPHEN TAB 650MG DOSE (2X325MG) PO PRN (20:13)
[2021-11-25 02:40] VITALS: O2SAT 93
[2021-11-25 06:00] VITALS: BP 133/94
[2021-11-25] MEDS: CIPROFLOXACIN 500MG TABLET PO SCH ×2 (06:00→17:55)
[2021-11-25] MEDS: ACETAMINOPHEN TAB 650MG DOSE (2X325MG) PO PRN ×2 (06:01→20:04)
[2021-11-25 06:11] LABS: BASO # 0.1 10^3/uL (0.0-0.2); BASO % 0.8 % (0.0-1.0); EOS # 0.8 10^3/uL (0.0-0.5); EOS % 11.6 % (0.0-3.0); HEMATOCRIT 34.3 % (36.0-47.0); HEMOGLOBIN 11.2 g/dl (12.0-15.5); LYMPH # 1.5 10^3/uL (1.5-5.0); LYMPH % 23.1 % (24.0-44.0); MEAN CORPUSCULAR HEMOGLOBIN 32.7 pg (27.0-33.0); MEAN CORPUSCULAR HGB CONC 32.7 g/dl (32.0-36.5); MONO # 0.8 10^3/uL (0.0-0.8); MONO % 11.9 % (2.0-8.0); NEUTROPHILS # 3.4 10^3/uL (1.5-8.5); NEUTROPHILS % 52.3 % (36.0-66.0); RED BLOOD COUNT 3.43 10^6/uL (4.00-5.40); WHITE BLOOD COUNT 6.5 10^3/uL (4.0-10.0)
[2021-11-25 06:14] LABS: PLATELET COUNT, AUTOMATED 88 10^3/uL (150-450)
[2021-11-25 06:44] LABS: ALBUMIN 2.4 GM/DL (3.2-5.2); ALT/SGPT 23 U/L (12-78); BILIRUBIN,TOTAL 0.6 MG/DL (0.2-1.0); BLOOD UREA NITROGEN 15 MG/DL (7-18); CALCIUM LEVEL 8.6 MG/DL (8.8-10.2); CARBON DIOXIDE LEVEL 27 MEQ/L (21-32); CHLORIDE LEVEL 106 MEQ/L (98-107); GLOMERULAR FILTRATION RATE > 60.0 (>45); GLUCOSE, FASTING 106 MG/DL (70-100); MAGNESIUM LEVEL 2.1 MG/DL (1.8-2.4); POTASSIUM SERUM 3.6 MEQ/L (3.5-5.1); SODIUM LEVEL 139 MEQ/L (136-145); TOTAL PROTEIN 6.1 GM/DL (6.4-8.2)
[2021-11-25] MEDS: MULTIVITAMINS/MINERALS THERAP 1 TAB PO SCH (08:31)
[2021-11-25] MEDS: THIAMINE 100 MG TAB PO SCH (08:31)
[2021-11-25] MEDS: FUROSEMIDE 10MG PER 1/2 TABLET PO SCH (08:31)
[2021-11-25] MEDS: FOLIC ACID 1 MG TAB PO SCH (08:32)
[2021-11-25] MEDS: SPIRONOLACTONE 25 MG TAB PO SCH (08:32)
[2021-11-25] MEDS: LACTULOSE 20 GM/30 ML SYRUP UD PO SCH ×3 (08:32→20:03)
[2021-11-25] MEDS ORDERED: FUROSEMIDE 10MG PER 1/2 TABLET PO ONE (12:30)
[2021-11-25 17:51] VITALS: BP 124/66
[2021-11-25 18:06] VITALS: BP 122/65
[2021-11-25 19:45] VITALS: BP 122/64; O2SAT 95
[2021-11-26] VITALS (8 sets, daily range): BP systolic 104–118; BP diastolic 52–69; O2SAT 93–97
[2021-11-26] MEDS: CIPROFLOXACIN 500MG TABLET PO SCH ×2 (05:39→17:26)
[2021-11-26 08:51] LABS: BLOOD UREA NITROGEN 15 MG/DL (7-18); CALCIUM LEVEL 8.7 MG/DL (8.8-10.2); CARBON DIOXIDE LEVEL 27 MEQ/L (21-32); CHLORIDE LEVEL 106 MEQ/L (98-107); CREATININE FOR GFR 0.97 MG/DL (0.55-1.30); GLOMERULAR FILTRATION RATE > 60.0 (>45); GLUCOSE, FASTING 152 MG/DL (70-100); POTASSIUM SERUM 3.4 MEQ/L (3.5-5.1); SODIUM LEVEL 139 MEQ/L (136-145)
[2021-11-26] MEDS ORDERED: FUROSEMIDE 20 MG TAB PO SCH (09:00)
[2021-11-26] MEDS: LACTULOSE 20 GM/30 ML SYRUP UD PO SCH ×3 (09:25→20:10)
[2021-11-26] MEDS: SPIRONOLACTONE 50 MG TAB PO SCH (09:25)
[2021-11-26] MEDS: MULTIVITAMINS/MINERALS THERAP 1 TAB PO SCH (09:26)
[2021-11-26] MEDS: FOLIC ACID 1 MG TAB PO SCH (09:26)
[2021-11-26] MEDS: THIAMINE 100 MG TAB PO SCH (09:26)
[2021-11-26] MEDS: ACETAMINOPHEN TAB 650MG DOSE (2X325MG) PO PRN (09:26)
[2021-11-26] MEDS: FUROSEMIDE 40 MG TAB PO SCH (09:26)
[2021-11-26] MEDS ORDERED: POTASSIUM CHLORIDE 10MEQ SR TABLET PO ONE (10:15)
[2021-11-26] MEDS ORDERED: ACETAMINOPHEN 500 MG TAB PO PRN (15:00)
[2021-11-27 05:24] VITALS: BP 116/70
[2021-11-27] MEDS: CIPROFLOXACIN 500MG TABLET PO SCH (05:26)
[2021-11-27 06:04] LABS: HEMATOCRIT 32.9 % (36.0-47.0); HEMOGLOBIN 10.8 g/dl (12.0-15.5); MEAN CORPUSCULAR HGB CONC 32.8 g/dl (32.0-36.5); MEAN CORPUSCULAR VOLUME 100.6 fl (80.0-96.0); RED BLOOD COUNT 3.27 10^6/uL (4.00-5.40); WHITE BLOOD COUNT 7.3 10^3/uL (4.0-10.0)
[2021-11-27 06:05] LABS: PLATELET COUNT, AUTOMATED 97 10^3/uL (150-450)
[2021-11-27 06:28] LABS: BLOOD UREA NITROGEN 14 MG/DL (7-18); CALCIUM LEVEL 8.6 MG/DL (8.8-10.2); CARBON DIOXIDE LEVEL 24 MEQ/L (21-32); CHLORIDE LEVEL 110 MEQ/L (98-107); CREATININE FOR GFR 0.97 MG/DL (0.55-1.30); GLOMERULAR FILTRATION RATE > 60.0 (>45); GLUCOSE, FASTING 106 MG/DL (70-100); POTASSIUM SERUM 3.8 MEQ/L (3.5-5.1); SODIUM LEVEL 142 MEQ/L (136-145)
[2021-11-27] MEDS ORDERED: FURO40TA2 PO (08:27)
[2021-11-27] MEDS ORDERED: LACT20EL PO (08:27)
[2021-11-27] MEDS ORDERED: ALDA50TA2 PO (08:27)
[2021-11-27 09:00] VITALS: O2SAT 95
[2021-11-27] MEDS: MULTIVITAMINS/MINERALS THERAP 1 TAB PO SCH (09:45)
[2021-11-27] MEDS: LACTULOSE 20 GM/30 ML SYRUP UD PO SCH (09:45)
[2021-11-27] MEDS: THIAMINE 100 MG TAB PO SCH (09:45)
[2021-11-27] MEDS: SPIRONOLACTONE 50 MG TAB PO SCH (09:45)
[2021-11-27] MEDS: FOLIC ACID 1 MG TAB PO SCH (09:45)
[2021-11-27] MEDS: FUROSEMIDE 40 MG TAB PO SCH (09:46)
== END 2021-11-27 11:12 | disposition home health service (06) | DRG 432 ==
LOC: M ED 09:23 → EDBD 09:23 → M ED INP 17:14 → ENRESERV 18:19 → M MSPAV 22:51
PROVIDERS: ADMIT Family Medicine; ATTEND Internal Medicine
PROC: 0W9G3ZZ Drainage of Peritoneal Cavity, Percutaneous Approach (ICD-10-PCS; principal; 2021-11-21 14:00)
PROC: 0W9G3ZZ Drainage of Peritoneal Cavity, Percutaneous Approach (ICD-10-PCS; 2021-11-25)
DX: K70.31 Alcoholic cirrhosis of liver with ascites (principal); G92.8 Other toxic encephalopathy; E51.2 Wernicke's encephalopathy; F10.20 Alcohol dependence, uncomplicated; E03.9 Hypothyroidism, unspecified; S20.212A Contusion of left front wall of thorax, initial encounter; W01.0XXA Fall on same level from slipping, tripping and stumbling without subsequent striking against object, initial encounter; Y92.009 Unspecified place in unspecified non-institutional (private) residence as the place of occurrence of the external cause; I48.91 Unspecified atrial fibrillation; K72.90 Hepatic failure, unspecified without coma; I95.9 Hypotension, unspecified; Z20.822 Contact with and (suspected) exposure to COVID-19; E87.6 Hypokalemia; Z79.899 Other long term (current) drug therapy

== ENCOUNTER 2021-12-25 16:27 | Observation (INO) | payer MEDICARE, OTHER ==
[~2021-12-25] VITALS: Ht 160 cm; Wt 66.1 kg
[~2021-12-25 16:27] MED LIST changes: +ALDA50TA2 PO; +FURO40TA2 PO; +med note
[2021-12-25 20:19] LABS: BASO % 0.5 % (0.0-1.0); EOS # 0.3 10^3/uL (0.0-0.5); EOS % 5.1 % (0.0-3.0); HEMATOCRIT 32.9 % (36.0-47.0); HEMOGLOBIN 10.9 g/dl (12.0-15.5); LYMPH # 1.4 10^3/uL (1.5-5.0); LYMPH % 24.1 % (24.0-44.0); MEAN CORPUSCULAR HEMOGLOBIN 32.8 pg (27.0-33.0); MEAN CORPUSCULAR HGB CONC 33.1 g/dl (32.0-36.5); MEAN CORPUSCULAR VOLUME 99.1 fl (80.0-96.0); MONO # 0.7 10^3/uL (0.0-0.8); MONO % 11.5 % (2.0-8.0); NEUTROPHILS # 3.4 10^3/uL (1.5-8.5); NEUTROPHILS % 58.6 % (36.0-66.0); PLATELET COUNT, AUTOMATED 110 10^3/uL (150-450); RED BLOOD COUNT 3.32 10^6/uL (4.00-5.40); WHITE BLOOD COUNT 5.9 10^3/uL (4.0-10.0)
[2021-12-25 20:32] LABS: INR 1.17; PROTHROMBIN TIME 15.3 SECONDS (12.7-14.5)
[2021-12-25 20:33] LABS: PARTIAL THROMBOPLASTIN TIME 30.3 SECONDS (25.9-37.0)
[2021-12-25 20:38] LABS: ALBUMIN 2.7 GM/DL (3.2-5.2); ALT/SGPT 19 U/L (12-78); BILIRUBIN,TOTAL 0.7 MG/DL (0.2-1.0); BLOOD UREA NITROGEN 13 MG/DL (7-18); CALCIUM LEVEL 8.2 MG/DL (8.8-10.2); CARBON DIOXIDE LEVEL 31 MEQ/L (21-32); CHLORIDE LEVEL 107 MEQ/L (98-107); CREATININE FOR GFR 0.98 MG/DL (0.55-1.30); GLOMERULAR FILTRATION RATE > 60.0 (>45); GLUCOSE, FASTING 101 MG/DL (70-100); POTASSIUM SERUM 3.3 MEQ/L (3.5-5.1); SODIUM LEVEL 140 MEQ/L (136-145); TOTAL PROTEIN 6.2 GM/DL (6.4-8.2)
[2021-12-25 21:23] LABS: RSV AMPLIFICATION NEGATIVE (NEGATIVE)
[2021-12-25] MEDS ORDERED: POTASSIUM CHLORIDE 10% LIQ 20 MEQ/15 ML UDC PO ONE (21:50)
[2021-12-25] MEDS ORDERED: FOLI1TAB11 PO (22:39)
[2021-12-25] MEDS ORDERED: LACT20EL PO (22:39)
[2021-12-25] MEDS ORDERED: FURO40TA2 PO (22:39)
[2021-12-25] MEDS ORDERED: HOME MED LIST COMPLETE! XX SCH (22:40)
[2021-12-25 23:02] VITALS: BP 143/78
[2021-12-26 05:18] VITALS: BP 135/77
[2021-12-26 06:20] LABS: BLOOD UREA NITROGEN 13 MG/DL (7-18); CARBON DIOXIDE LEVEL 27 MEQ/L (21-32); CHLORIDE LEVEL 110 MEQ/L (98-107); CREATININE FOR GFR 0.87 MG/DL (0.55-1.30); GLOMERULAR FILTRATION RATE > 60.0 (>45); GLUCOSE, FASTING 82 MG/DL (70-100); POTASSIUM SERUM 3.2 MEQ/L (3.5-5.1); SODIUM LEVEL 145 MEQ/L (136-145)
[2021-12-26] MEDS ORDERED: POTASSIUM CHLORIDE 10MEQ SR TABLET PO ONE (07:00)
[2021-12-26] MEDS ORDERED: FUROSEMIDE 40 MG TAB PO SCH (09:00)
[2021-12-26] MEDS ORDERED: FOLIC ACID 1 MG TAB PO SCH (09:00)
[2021-12-26] MEDS ORDERED: LACTULOSE 20 GM/30 ML SYRUP UD PO SCH (09:00)
[2021-12-26] MEDS ORDERED: MULTIVITAMINS/MINERALS THERAP 1 TAB PO SCH (09:00)
[2021-12-26] MEDS ORDERED: THIAMINE 100 MG TAB PO SCH (09:00)
[2021-12-26] MEDS: KCL 10MEQ/100ML SWI (KRUN) 10 MEQ in IV 1 EA IV SCH ×2 (09:38→12:57)
[2021-12-26] MEDS ORDERED: LIDOCAINE 1% MDV 20ML VIAL As Ordered ONE (10:48)
[2021-12-26 12:07] LABS: SPEC. GRAVITY BODY FLUIDS 1.012 (NOT ESTABLISHED)
[2021-12-26 12:13] LABS: APPEARANCE, BODY FLUID HAZY (CLEAR); ASCITES FL COLOR PALE YELLOW (COLORLESS); SOURCE, BODY FLUID ASCITES
[2021-12-26] MEDS ORDERED: KCL 10MEQ IN STERILE WATER 100ML As Ordered ONE (12:28)
[2021-12-26 12:30] VITALS: BP 139/63
[2021-12-26 12:41] LABS: SOURCE, BODY FLUID ALBUMIN ASCITES
[2021-12-26 12:45] LABS: SOURCE, BODY FLUID GLUCOSE ASCITES; SOURCE, BODY FLUID TOT PROTEIN ASCITES; TOTAL PROTEIN, BODY FLUID 0.8 G/DL (NOT ESTABLISHED)
[2021-12-26] MEDS ORDERED: THIA100TA PO (13:31)
[2021-12-26] MEDS ORDERED: VITMTA PO (13:31)
[2021-12-26 14:00] VITALS: BP 142/70
== END 2021-12-26 15:15 | disposition home health service (06) ==
LOC: M ED 16:27 → M ED INP 21:47 → M MSPAV 23:02
PROVIDERS: ADMIT Internal Medicine; ATTEND Internal Medicine
DX: K70.31 Alcoholic cirrhosis of liver with ascites (principal); K76.6 Portal hypertension; K92.1 Melena; K70.40 Alcoholic hepatic failure without coma; E87.6 Hypokalemia; E51.2 Wernicke's encephalopathy; Z79.899 Other long term (current) drug therapy
CPT/HCPCS: 36415; 49082; 76705; 80048; 80053; 82042; 82140; 82945; 83735; 84157; 84315; 85025; 85610; 85730; 87070; 87102; 87116; 87205; 87206; 87631; 88108; 88313; 89051; 97161; 97165; 99285; G0378

== ENCOUNTER 2022-01-09 10:05 | Emergency (ER) | payer MEDICARE, OTHER ==
[~2022-01-09] VITALS: Ht 160 cm; Wt 66.9 kg
[2022-01-09 15:48] LABS: APPEARANCE, BODY FLUID CLEAR (CLEAR); ASCITES FL COLOR PALE YELLOW (COLORLESS); SOURCE, BODY FLUID ASCITES
[2022-01-09 16:16] LABS: BASO % 0.6 % (0.0-1.0); EOS # 0.3 10^3/uL (0.0-0.5); EOS % 4.5 % (0.0-3.0); HEMATOCRIT 33.8 % (36.0-47.0); LYMPH # 1.7 10^3/uL (1.5-5.0); LYMPH % 24.8 % (24.0-44.0); MEAN CORPUSCULAR HEMOGLOBIN 32.4 pg (27.0-33.0); MEAN CORPUSCULAR HGB CONC 32.5 g/dl (32.0-36.5); MEAN CORPUSCULAR VOLUME 99.7 fl (80.0-96.0); MONO # 0.8 10^3/uL (0.0-0.8); MONO % 11.4 % (2.0-8.0); NEUTROPHILS # 3.9 10^3/uL (1.5-8.5); NEUTROPHILS % 58.4 % (36.0-66.0); PLATELET COUNT, AUTOMATED 125 10^3/uL (150-450); RED BLOOD COUNT 3.39 10^6/uL (4.00-5.40); WHITE BLOOD COUNT 6.7 10^3/uL (4.0-10.0)
[2022-01-09 16:21] LABS: SOURCE, BODY FLUID ALBUMIN ASCITES; SOURCE, BODY FLUID GLUCOSE ASCITES; SOURCE, BODY FLUID TOT PROTEIN ASCITES; TOTAL PROTEIN, BODY FLUID 0.6 G/DL (NOT ESTABLISHED)
[2022-01-09 16:50] LABS: ALBUMIN 2.6 GM/DL (3.2-5.2); ALT/SGPT 28 U/L (12-78); BILIRUBIN,DIRECT 0.1 MG/DL (0.0-0.2); BILIRUBIN,TOTAL 0.9 MG/DL (0.2-1.0); BLOOD UREA NITROGEN 15 MG/DL (7-18); CALCIUM LEVEL 8.4 MG/DL (8.8-10.2); CARBON DIOXIDE LEVEL 25 MEQ/L (21-32); CHLORIDE LEVEL 108 MEQ/L (98-107); CREATININE FOR GFR 0.93 MG/DL (0.55-1.30); GLOMERULAR FILTRATION RATE > 60.0 (>45); GLUCOSE, FASTING 92 MG/DL (70-100); POTASSIUM SERUM 4.3 MEQ/L (3.5-5.1); SODIUM LEVEL 138 MEQ/L (136-145); TOTAL PROTEIN 6.7 GM/DL (6.4-8.2)
[2022-01-09 17:23] LABS: INR 1.12; PROTHROMBIN TIME 14.8 SECONDS (12.7-14.5)
[2022-01-09 17:24] LABS: PARTIAL THROMBOPLASTIN TIME 27.3 SECONDS (25.9-37.0)
[2022-01-09 17:57] VITALS: BP 129/62
== END 2022-01-09 18:23 | disposition home or self-care (01) ==
LOC: M ED 10:05
DX: R18.8 Other ascites (principal); K74.60 Unspecified cirrhosis of liver; R07.9 Chest pain, unspecified; Z91.81 History of falling; R68.0 Hypothermia, not associated with low environmental temperature; E51.2 Wernicke's encephalopathy; F17.200 Nicotine dependence, unspecified, uncomplicated; Z79.899 Other long term (current) drug therapy

== ENCOUNTER 2022-01-14 11:20 | Emergency (ER) | payer MEDICARE, OTHER ==
[~2022-01-14] VITALS: Ht 160 cm; Wt 64.2 kg
[2022-01-14 11:21] VITALS: BP 127/67
== END 2022-01-14 14:30 | disposition left against medical advice (07) ==
LOC: M ED 11:20
DX: Z53.21 Procedure and treatment not carried out due to patient leaving prior to being seen by health care provider (principal)

== ENCOUNTER 2022-01-19 15:18 | Observation (INO) | payer MEDICARE, OTHER ==
[~2022-01-19] VITALS: Ht 160 cm; Wt 68.0 kg
[2022-01-19 22:29] LABS: BASO # 0.1 10^3/uL (0.0-0.2); BASO % 0.8 % (0.0-1.0); EOS # 0.5 10^3/uL (0.0-0.5); EOS % 7.1 % (0.0-3.0); HEMOGLOBIN 10.4 g/dl (12.0-15.5); LYMPH # 1.6 10^3/uL (1.5-5.0); LYMPH % 25.2 % (24.0-44.0); MEAN CORPUSCULAR HEMOGLOBIN 32.6 pg (27.0-33.0); MEAN CORPUSCULAR HGB CONC 32.5 g/dl (32.0-36.5); MEAN CORPUSCULAR VOLUME 100.3 fl (80.0-96.0); MONO # 0.7 10^3/uL (0.0-0.8); MONO % 10.4 % (2.0-8.0); NEUTROPHILS # 3.7 10^3/uL (1.5-8.5); NEUTROPHILS % 56.3 % (36.0-66.0); PLATELET COUNT, AUTOMATED 124 10^3/uL (150-450); RED BLOOD COUNT 3.19 10^6/uL (4.00-5.40); WHITE BLOOD COUNT 6.5 10^3/uL (4.0-10.0)
[2022-01-19 22:34] LABS: INR 1.1; PROTHROMBIN TIME 14.6 SECONDS (12.7-14.5)
[2022-01-19 22:35] LABS: PARTIAL THROMBOPLASTIN TIME 32.3 SECONDS (25.9-37.0)
[2022-01-19 23:02] LABS: RSV AMPLIFICATION NEGATIVE (NEGATIVE)
[2022-01-19 23:30] LABS: ALBUMIN 2.4 GM/DL (3.2-5.2); ALT/SGPT 26 U/L (12-78); BILIRUBIN,TOTAL 0.6 MG/DL (0.2-1.0); BLOOD UREA NITROGEN 15 MG/DL (7-18); CALCIUM LEVEL 8.5 MG/DL (8.8-10.2); CARBON DIOXIDE LEVEL 26 MEQ/L (21-32); CHLORIDE LEVEL 109 MEQ/L (98-107); CREATININE FOR GFR 0.87 MG/DL (0.55-1.30); GLOMERULAR FILTRATION RATE > 60.0 (>45); GLUCOSE, FASTING 89 MG/DL (70-100); LIPASE 147 U/L (73-393); POTASSIUM SERUM 3.9 MEQ/L (3.5-5.1); SODIUM LEVEL 139 MEQ/L (136-145); TOTAL PROTEIN 6.4 GM/DL (6.4-8.2)
[2022-01-20] MEDS ORDERED: SPIR50TA4 PO (01:26)
[2022-01-20] MEDS ORDERED: MULT-40 PO (01:26)
[2022-01-20] MEDS ORDERED: THIA100T7 PO (01:26)
[2022-01-20] MEDS ORDERED: HOME MED LIST COMPLETE! XX SCH (01:30)
[2022-01-20] MEDS: LACTULOSE 20 GM/30 ML SYRUP UD PO SCH ×2 (01:44→08:36)
[2022-01-20 01:53] VITALS: BP 150/70
[2022-01-20 06:00] VITALS: BP 103/60
[2022-01-20 06:51] LABS: BLOOD UREA NITROGEN 16 MG/DL (7-18); CALCIUM LEVEL 8.3 MG/DL (8.8-10.2); CARBON DIOXIDE LEVEL 27 MEQ/L (21-32); CHLORIDE LEVEL 110 MEQ/L (98-107); CREATININE FOR GFR 0.82 MG/DL (0.55-1.30); GLOMERULAR FILTRATION RATE > 60.0 (>45); GLUCOSE, FASTING 87 MG/DL (70-100); POTASSIUM SERUM 3.9 MEQ/L (3.5-5.1); SODIUM LEVEL 141 MEQ/L (136-145)
[2022-01-20] MEDS ORDERED: MULTIVITAMINS/MINERALS THERAP 1 TAB PO SCH (09:00)
[2022-01-20] MEDS ORDERED: FOLIC ACID 1MG TAB PO SCH (09:00)
[2022-01-20] MEDS ORDERED: THIAMINE 100 MG TAB PO SCH (09:00)
[2022-01-20] MEDS ORDERED: LIDOCAINE 1% MDV 20ML VIAL As Ordered ONE (12:56)
[2022-01-20 14:00] VITALS: BP 118/65
[2022-01-20 14:09] LABS: APPEARANCE, BODY FLUID CLEAR (CLEAR); ASCITES FL COLOR PALE YELLOW (COLORLESS); SOURCE, BODY FLUID ASCITES
[2022-01-20 14:59] VITALS: BP 115/61
[2022-01-20 15:03] VITALS: BP 115/60
[2022-01-20 15:06] LABS: SOURCE, BODY FLUID ALBUMIN ASCITES; SOURCE, BODY FLUID GLUCOSE ASCITES
[2022-01-20] MEDS ORDERED: ALBU8.5H INH (17:32)
[2022-01-21] MEDS ORDERED: FUROSEMIDE 40 MG TAB PO SCH (09:00)
[2022-01-21] MEDS ORDERED: SPIRONOLACTONE 50 MG TAB PO SCH (09:00)
== END 2022-01-20 18:15 | disposition home or self-care (01) ==
LOC: M ED 15:18 → M ED INP 23:30 → ENRESERV 01-20 00:49 → M MSPAV 01-20 01:54
PROVIDERS: ADMIT Internal Medicine; ATTEND Internal Medicine
DX: R18.8 Other ascites (principal); K76.6 Portal hypertension; E51.2 Wernicke's encephalopathy; G93.40 Encephalopathy, unspecified; F10.20 Alcohol dependence, uncomplicated; Z79.899 Other long term (current) drug therapy
CPT/HCPCS: 36415; 49083; 71045; 80048; 80053; 82042; 82945; 83690; 85025; 85610; 85730; 87070; 87205; 87631; 89051; 96365; 97161; 97165; 97530; 99285; G0378; P9047

== ENCOUNTER 2022-02-03 16:26 | Observation (INO) | payer MEDICARE, OTHER ==
[~2022-02-03] VITALS: Ht 160 cm; Wt 65.9 kg
[~2022-02-03 16:26] MED LIST changes: +ALBU8.5H INH; +MULT-40 PO; +SPIR50TA4 PO; +THIA100T7 PO
[2022-02-03 18:56] LABS: BASO # 0.1 10^3/uL (0.0-0.2); EOS # 0.5 10^3/uL (0.0-0.5); EOS % 6.3 % (0.0-3.0); HEMATOCRIT 34.5 % (36.0-47.0); HEMOGLOBIN 11.4 g/dl (12.0-15.5); LYMPH # 1.8 10^3/uL (1.5-5.0); LYMPH % 24.3 % (24.0-44.0); MEAN CORPUSCULAR HEMOGLOBIN 32.5 pg (27.0-33.0); MEAN CORPUSCULAR VOLUME 98.3 fl (80.0-96.0); MONO # 0.7 10^3/uL (0.0-0.8); MONO % 9.5 % (2.0-8.0); NEUTROPHILS # 4.3 10^3/uL (1.5-8.5); NEUTROPHILS % 58.8 % (36.0-66.0); PLATELET COUNT, AUTOMATED 131 10^3/uL (150-450); RED BLOOD COUNT 3.51 10^6/uL (4.00-5.40); WHITE BLOOD COUNT 7.4 10^3/uL (4.0-10.0)
[2022-02-03 19:17] LABS: ALBUMIN 2.7 GM/DL (3.2-5.2); ALT/SGPT 30 U/L (12-78); BILIRUBIN,DIRECT < 0.1 MG/DL (0.0-0.2); BILIRUBIN,TOTAL 0.5 MG/DL (0.2-1.0); LIPASE 226 U/L (73-393); TOTAL PROTEIN 6.6 GM/DL (6.4-8.2)
[2022-02-03] MEDS ORDERED: ONDANSETRON 4MG 2ML VIAL IV ONE (20:00)
[2022-02-03] MEDS ORDERED: MORPHINE 2 MG/ML 1ML VIAL IV ONE (20:00)
[2022-02-03] MEDS ORDERED: ALBUTEROL 90 MCG/ACT 8GM HFA INHALER INH ONE (20:05)
[2022-02-03] MEDS ORDERED: dexameTHASONE 20MG/5ML VIAL (J1100 PER 1MG) IV ONE (20:05)
[2022-02-03] MEDS ORDERED: ONDANSETRON 4MG 2ML VIAL IV PRN (20:30)
[2022-02-03] MEDS ORDERED: MORPHINE 2 MG/ML 1ML VIAL IV PRN (20:30)
[2022-02-03] MEDS ORDERED: VENTAER INH (20:38)
[2022-02-03] MEDS ORDERED: HOME MED LIST COMPLETE! XX SCH (20:40)
[2022-02-03] MEDS ORDERED: ALBUTEROL 90 MCG/ACT 8GM HFA INHALER INH PRN (20:50)
[2022-02-03] MEDS: LACTULOSE 20 GM/30 ML SYRUP UD PO SCH (21:00)
[2022-02-03 21:09] LABS: INR 1.11; PROTHROMBIN TIME 14.7 SECONDS (12.7-14.5)
[2022-02-03] MEDS: THIAMINE 100 MG TAB PO SCH (22:00)
[2022-02-04] VITALS (8 sets, daily range): BP systolic 103–127; BP diastolic 52–72
[2022-02-04 01:37] LABS: SQUAMOUS EPITHELIAL CELL URINE MOD AMOUNT /hpf (SMALL AMT)
[2022-02-04 01:39] LABS: BACTERIA, URINE SMALL AMOUNT
[2022-02-04 01:40] LABS: AMORPHOUS SEDIMENT, URINE MOD AMOUNT (NEGATIVE); HYALINE CAST, URINE 0-1 /lpf (0-1); MUCUS, URINE SMALL AMOUNT (NEGATIVE)
[2022-02-04 06:44] LABS: MEAN CORPUSCULAR HEMOGLOBIN 32.6 pg (27.0-33.0); MEAN CORPUSCULAR HGB CONC 32.4 g/dl (32.0-36.5); MEAN CORPUSCULAR VOLUME 100.9 fl (80.0-96.0); PLATELET COUNT, AUTOMATED 125 10^3/uL (150-450); RED BLOOD COUNT 3.37 10^6/uL (4.00-5.40); WHITE BLOOD COUNT 5.6 10^3/uL (4.0-10.0)
[2022-02-04 06:53] LABS: INR 1.1; PARTIAL THROMBOPLASTIN TIME 34.4 SECONDS (25.9-37.0); PROTHROMBIN TIME 14.7 SECONDS (12.7-14.5)
[2022-02-04 07:23] LABS: BLOOD UREA NITROGEN 15 MG/DL (7-18); CALCIUM LEVEL 8.5 MG/DL (8.8-10.2); CARBON DIOXIDE LEVEL 23 MEQ/L (21-32); CHLORIDE LEVEL 109 MEQ/L (98-107); GLOMERULAR FILTRATION RATE > 60.0 (>45); GLUCOSE, FASTING 86 MG/DL (70-100); POTASSIUM SERUM 3.8 MEQ/L (3.5-5.1); SODIUM LEVEL 138 MEQ/L (136-145)
[2022-02-04] MEDS: SPIRONOLACTONE 50 MG TAB PO SCH (09:00)
[2022-02-04] MEDS: FUROSEMIDE 40 MG TAB PO SCH (09:00)
[2022-02-04] MEDS ORDERED: LIDOCAINE 1% MDV 20ML VIAL As Ordered ONE (10:10)
[2022-02-04 11:04] LABS: ASCITES FL COLOR PALE YELLOW (COLORLESS); SOURCE, BODY FLUID ASCITES
[2022-02-04 11:05] LABS: APPEARANCE, BODY FLUID HAZY (CLEAR)
[2022-02-04] MEDS ORDERED: cefTRIAXone SOD 2 GM VIAL (J0696 PER 250MG) IM SCH (11:05)
[2022-02-04] MEDS ORDERED: cefTRIAXone SOD 2 GM VIAL (J0696 PER 250MG) IV SCH (12:00)
[2022-02-04] MEDS: LACTULOSE 20 GM/30 ML SYRUP UD PO SCH ×3 (12:14→21:00)
[2022-02-04] MEDS: MULTIVITAMINS/MINERALS THERAP 1 TAB PO SCH (12:15)
[2022-02-04] MEDS: FOLIC ACID 1MG TAB PO SCH (12:15)
[2022-02-04] MEDS: THIAMINE 100 MG TAB PO SCH ×2 (12:15→21:32)
[2022-02-04] MEDS: cefTRIAXone SOD 2 GM in D5W MINI-BAG PLUS 50 ML IV SCH (12:15)
[2022-02-04 12:58] LABS: SOURCE, BODY FLUID ALBUMIN ASCITES; SOURCE, BODY FLUID GLUCOSE ASCITES; SOURCE, BODY FLUID TOT PROTEIN ASCITES; TOTAL PROTEIN, BODY FLUID 0.8 G/DL (NOT ESTABLISHED)
[2022-02-04 13:08] LABS: FREE T4 1.02 NG/DL (0.76-1.46)
[2022-02-04] MEDS: HEPARIN SOD (PORCINE) 5000UNITS/ML 1ML VIAL/SYRINGE SQ SCH ×2 (13:30→21:32)
[2022-02-04] MEDS ORDERED: KETOROLAC 30 MG/ML 1ML VIAL IV ONE (14:00)
[2022-02-05] VITALS (12 sets, daily range): BP systolic 94–125; BP diastolic 51–70
[2022-02-05 00:24] LABS: SPEC. GRAVITY BODY FLUIDS 1.011 (NOT ESTABLISHED)
[2022-02-05] MEDS: HEPARIN SOD (PORCINE) 5000UNITS/ML 1ML VIAL/SYRINGE SQ SCH ×3 (05:25→21:20)
[2022-02-05 06:35] LABS: HEMATOCRIT 31.6 % (36.0-47.0); HEMOGLOBIN 10.3 g/dl (12.0-15.5); MEAN CORPUSCULAR HEMOGLOBIN 31.8 pg (27.0-33.0); MEAN CORPUSCULAR HGB CONC 32.6 g/dl (32.0-36.5); MEAN CORPUSCULAR VOLUME 97.5 fl (80.0-96.0); PLATELET COUNT, AUTOMATED 115 10^3/uL (150-450); RED BLOOD COUNT 3.24 10^6/uL (4.00-5.40)
[2022-02-05 07:15] LABS: BLOOD UREA NITROGEN 16 MG/DL (7-18); CARBON DIOXIDE LEVEL 23 MEQ/L (21-32); CHLORIDE LEVEL 110 MEQ/L (98-107); CREATININE FOR GFR 0.84 MG/DL (0.55-1.30); GLOMERULAR FILTRATION RATE > 60.0 (>45); GLUCOSE, FASTING 94 MG/DL (70-100); PHOSPHORUS LEVEL 3.1 MG/DL (2.5-4.9); POTASSIUM SERUM 3.7 MEQ/L (3.5-5.1); SODIUM LEVEL 138 MEQ/L (136-145)
[2022-02-05] MEDS: FUROSEMIDE 40 MG TAB PO SCH (08:59)
[2022-02-05] MEDS: SPIRONOLACTONE 50 MG TAB PO SCH (08:59)
[2022-02-05] MEDS: LACTULOSE 20 GM/30 ML SYRUP UD PO SCH ×3 (08:59→21:00)
[2022-02-05] MEDS: THIAMINE 100 MG TAB PO SCH ×2 (09:20→21:20)
[2022-02-05] MEDS: MULTIVITAMINS/MINERALS THERAP 1 TAB PO SCH (09:20)
[2022-02-05] MEDS: FOLIC ACID 1MG TAB PO SCH (09:20)
[2022-02-05] MEDS: cefTRIAXone SOD 2 GM in D5W MINI-BAG PLUS 50 ML IV SCH (12:58)
[2022-02-05] MEDS ORDERED: CEPH500C PO (13:55)
[2022-02-06] MEDS: HEPARIN SOD (PORCINE) 5000UNITS/ML 1ML VIAL/SYRINGE SQ SCH (05:51)
[2022-02-06 06:00] VITALS: BP 110/70
[2022-02-06] MEDS: LACTULOSE 20 GM/30 ML SYRUP UD PO SCH (08:48)
[2022-02-06 08:52] VITALS: BP 107/56
[2022-02-06] MEDS: SPIRONOLACTONE 50 MG TAB PO SCH (08:56)
[2022-02-06] MEDS: FOLIC ACID 1MG TAB PO SCH (09:05)
[2022-02-06] MEDS: THIAMINE 100 MG TAB PO SCH (09:06)
[2022-02-06] MEDS: MULTIVITAMINS/MINERALS THERAP 1 TAB PO SCH (09:06)
[2022-02-06] MEDS: FUROSEMIDE 40 MG TAB PO SCH (09:06)
[2022-02-06] MEDS ORDERED: FAMO20TA PO (13:49)
== END 2022-02-06 11:10 | disposition home or self-care (01) ==
LOC: M ED 19:00 → M ED INP 20:26 → ENRESERVTM 23:20 → ENRESERVDT 23:20 → M MSPAV 02-04 00:18
PROVIDERS: ADMIT Family Medicine; ATTEND Internal Medicine
DX: K70.31 Alcoholic cirrhosis of liver with ascites (principal); K21.9 Gastro-esophageal reflux disease without esophagitis; N39.0 Urinary tract infection, site not specified; D46.A Refractory cytopenia with multilineage dysplasia; F10.20 Alcohol dependence, uncomplicated; Z79.899 Other long term (current) drug therapy
CPT/HCPCS: 36415; 49083; 71045; 76705; 80047; 80048; 80076; 81000; 81015; 82042; 82140; 82945; 83690; 83735; 84100; 84157; 84315; 84439; 84443; 84484; 85025; 85027; 85610; 85730; 87070; 87086; 87205; 87635; 89051; 93005; 96365; 96366; 96372; 96375; 99284; G0378; J0696; J1644; J1885; J2270; J2405; P9047

== ENCOUNTER 2022-02-19 15:43 | Observation (INO) | payer MEDICARE, OTHER ==
[~2022-02-19] VITALS: Ht 160 cm; Wt 61.2 kg
[~2022-02-19 15:43] MED LIST changes: +CEPH500C PO; +FAMO20TA PO; +VENTAER INH
[2022-02-19 20:21] LABS: BASO # 0.1 10^3/uL (0.0-0.2); BASO % 0.8 % (0.0-1.0); EOS # 0.5 10^3/uL (0.0-0.5); EOS % 7.4 % (0.0-3.0); HEMATOCRIT 37.3 % (36.0-47.0); HEMOGLOBIN 12.1 g/dl (12.0-15.5); LYMPH # 1.7 10^3/uL (1.5-5.0); LYMPH % 26.9 % (24.0-44.0); MEAN CORPUSCULAR HEMOGLOBIN 31.8 pg (27.0-33.0); MEAN CORPUSCULAR HGB CONC 32.4 g/dl (32.0-36.5); MEAN CORPUSCULAR VOLUME 98.2 fl (80.0-96.0); MONO # 0.6 10^3/uL (0.0-0.8); MONO % 9.3 % (2.0-8.0); NEUTROPHILS # 3.6 10^3/uL (1.5-8.5); NEUTROPHILS % 55.3 % (36.0-66.0); PLATELET COUNT, AUTOMATED 138 10^3/uL (150-450); WHITE BLOOD COUNT 6.5 10^3/uL (4.0-10.0)
[2022-02-19 20:59] LABS: ALBUMIN 3.4 GM/DL (3.2-5.2); BILIRUBIN,DIRECT 0.3 MG/DL (0.0-0.2); BILIRUBIN,TOTAL 0.9 MG/DL (0.2-1.0); TOTAL PROTEIN 7.2 GM/DL (6.4-8.2)
[2022-02-19 21:00] LABS: CK-MB VALUE MASS < 1.0 NG/ML (<3.6); CPK CREATINE PHOSPHOKINASE 46 U/L (26-192); MB/CK RELATIVE INDEX 2.17 (< OR =4)
[2022-02-19 21:02] LABS: RSV AMPLIFICATION NEGATIVE (NEGATIVE)
[2022-02-19] MEDS ORDERED: FAMO20TA PO (23:05)
[2022-02-19] MEDS ORDERED: HOME MED LIST COMPLETE! XX SCH (23:10)
[2022-02-19 23:30] VITALS: BP 131/71
[2022-02-20] VITALS (8 sets, daily range): BP systolic 93–114; BP diastolic 52–68
[2022-02-20 07:59] LABS: BLOOD UREA NITROGEN 12 MG/DL (7-18); CALCIUM LEVEL 7.9 MG/DL (8.8-10.2); CARBON DIOXIDE LEVEL 24 MEQ/L (21-32); CHLORIDE LEVEL 110 MEQ/L (98-107); CREATININE FOR GFR 0.82 MG/DL (0.55-1.30); GLOMERULAR FILTRATION RATE > 60.0 (>45); GLUCOSE, FASTING 96 MG/DL (70-100); POTASSIUM SERUM 3.3 MEQ/L (3.5-5.1); SODIUM LEVEL 140 MEQ/L (136-145)
[2022-02-20] MEDS ORDERED: LIDOCAINE 1% MDV 20ML VIAL As Ordered ONE (09:20)
[2022-02-20] MEDS ORDERED: POTASSIUM CHLORIDE 10MEQ SR TABLET PO ONE (10:05)
[2022-02-20] MEDS ORDERED: ALBUTEROL 90 MCG/ACT 8GM HFA INHALER INH PRN (10:05)
[2022-02-20] MEDS: THIAMINE 100 MG TAB PO SCH ×2 (12:42→20:09)
[2022-02-20] MEDS: FAMOTIDINE 20 MG TAB PO SCH ×2 (12:45→20:09)
[2022-02-20] MEDS: SPIRONOLACTONE 50 MG TAB PO SCH (12:46)
[2022-02-20] MEDS: FUROSEMIDE 40 MG TAB PO SCH (12:46)
[2022-02-20] MEDS: LACTULOSE 20 GM/30 ML SYRUP UD PO SCH ×3 (12:46→20:08)
[2022-02-20] MEDS: FOLIC ACID 1MG TAB PO SCH (12:46)
[2022-02-20] MEDS: POTASSIUM CHLORIDE 10MEQ SR TABLET PO SCH (20:08)
[2022-02-21 06:07] LABS: HEMATOCRIT 31.2 % (36.0-47.0); HEMOGLOBIN 10.5 g/dl (12.0-15.5); MEAN CORPUSCULAR HEMOGLOBIN 32.3 pg (27.0-33.0); MEAN CORPUSCULAR HGB CONC 33.7 g/dl (32.0-36.5); PLATELET COUNT, AUTOMATED 120 10^3/uL (150-450); RED BLOOD COUNT 3.25 10^6/uL (4.00-5.40); WHITE BLOOD COUNT 6.1 10^3/uL (4.0-10.0)
[2022-02-21 06:16] VITALS: BP 99/56
[2022-02-21 06:33] LABS: BLOOD UREA NITROGEN 9 MG/DL (7-18); CALCIUM LEVEL 8.3 MG/DL (8.8-10.2); CARBON DIOXIDE LEVEL 23 MEQ/L (21-32); CHLORIDE LEVEL 110 MEQ/L (98-107); CREATININE FOR GFR 0.82 MG/DL (0.55-1.30); GLOMERULAR FILTRATION RATE > 60.0 (>45); GLUCOSE, FASTING 92 MG/DL (70-100); POTASSIUM SERUM 4.1 MEQ/L (3.5-5.1); SODIUM LEVEL 139 MEQ/L (136-145)
[2022-02-21] MEDS: FOLIC ACID 1MG TAB PO SCH (10:44)
[2022-02-21] MEDS: POTASSIUM CHLORIDE 10MEQ SR TABLET PO SCH (10:44)
[2022-02-21] MEDS: LACTULOSE 20 GM/30 ML SYRUP UD PO SCH (10:45)
[2022-02-21] MEDS: FUROSEMIDE 40 MG TAB PO SCH (10:45)
[2022-02-21] MEDS: FAMOTIDINE 20 MG TAB PO SCH (10:45)
[2022-02-21] MEDS: THIAMINE 100 MG TAB PO SCH (10:45)
[2022-02-21] MEDS: SPIRONOLACTONE 50 MG TAB PO SCH (10:45)
== END 2022-02-21 11:45 | disposition home or self-care (01) ==
LOC: M ED 15:43 → M ED INP 15:44 → M MS5PR 23:32
PROVIDERS: ADMIT Internal Medicine; ATTEND Internal Medicine
DX: K70.31 Alcoholic cirrhosis of liver with ascites (principal); E87.6 Hypokalemia; Z60.9 Problem related to social environment, unspecified; Z79.899 Other long term (current) drug therapy; F10.20 Alcohol dependence, uncomplicated
CPT/HCPCS: 36415; 49083; 71046; 76705; 80047; 80048; 80076; 82140; 82550; 82553; 83605; 83690; 83880; 84484; 85025; 85027; 87040; 87631; 93005; 99284; G0378; P9047

== ENCOUNTER 2022-03-18 09:58 | Emergency (ER) | payer MEDICARE, OTHER ==
[~2022-03-18] VITALS: Ht 160 cm; Wt 62.0 kg
[2022-03-18 10:45] LABS: BASO # 0.1 10^3/uL (0.0-0.2); BASO % 0.9 % (0.0-1.0); EOS # 0.6 10^3/uL (0.0-0.5); HEMATOCRIT 38.5 % (36.0-47.0); HEMOGLOBIN 12.6 g/dl (12.0-15.5); LYMPH # 1.4 10^3/uL (1.5-5.0); MEAN CORPUSCULAR HEMOGLOBIN 31.9 pg (27.0-33.0); MEAN CORPUSCULAR HGB CONC 32.7 g/dl (32.0-36.5); MEAN CORPUSCULAR VOLUME 97.5 fl (80.0-96.0); MONO # 0.4 10^3/uL (0.0-0.8); MONO % 7.2 % (2.0-8.0); NEUTROPHILS # 3.3 10^3/uL (1.5-8.5); NEUTROPHILS % 56.7 % (36.0-66.0); PLATELET COUNT, AUTOMATED 115 10^3/uL (150-450); RED BLOOD COUNT 3.95 10^6/uL (4.00-5.40); WHITE BLOOD COUNT 5.8 10^3/uL (4.0-10.0)
[2022-03-18 11:26] LABS: RSV AMPLIFICATION NEGATIVE (NEGATIVE)
[2022-03-18 11:35] LABS: ALBUMIN 3.3 GM/DL (3.2-5.2); ALT/SGPT 34 U/L (12-78); BILIRUBIN,TOTAL 0.7 MG/DL (0.2-1.0); BLOOD UREA NITROGEN 16 MG/DL (7-18); CALCIUM LEVEL 8.7 MG/DL (8.8-10.2); CARBON DIOXIDE LEVEL 27 MEQ/L (21-32); CHLORIDE LEVEL 111 MEQ/L (98-107); CREATININE FOR GFR 0.96 MG/DL (0.55-1.30); GLOMERULAR FILTRATION RATE > 60.0 (>45); GLUCOSE, FASTING 99 MG/DL (70-100); POTASSIUM SERUM 3.3 MEQ/L (3.5-5.1); SODIUM LEVEL 142 MEQ/L (136-145); TOTAL PROTEIN 7.3 GM/DL (6.4-8.2)
[2022-03-18 11:37] LABS: INR 0.96; PROTHROMBIN TIME 13.2 SECONDS (12.7-14.5)
[2022-03-18] MEDS ORDERED: POTASSIUM CHLORIDE 10MEQ SR TABLET PO ONE (11:55)
[2022-03-18 16:26] VITALS: BP 146/67
== END 2022-03-18 16:39 | disposition home or self-care (01) ==
LOC: M ED 09:58
DX: K74.69 Other cirrhosis of liver (principal); R18.8 Other ascites; F10.20 Alcohol dependence, uncomplicated; Z79.899 Other long term (current) drug therapy

== ENCOUNTER 2022-03-27 14:48 | Observation (INO) | payer MEDICARE, OTHER ==
[~2022-03-27] VITALS: Ht 160 cm; Wt 57.6 kg
[2022-03-27 16:27] LABS: BASO # 0.1 10^3/uL (0.0-0.2); BASO % 0.9 % (0.0-1.0); EOS # 0.7 10^3/uL (0.0-0.5); EOS % 10.9 % (0.0-3.0); HEMATOCRIT 36.8 % (36.0-47.0); HEMOGLOBIN 11.9 g/dl (12.0-15.5); LYMPH # 1.8 10^3/uL (1.5-5.0); LYMPH % 27.1 % (24.0-44.0); MEAN CORPUSCULAR HEMOGLOBIN 31.7 pg (27.0-33.0); MEAN CORPUSCULAR HGB CONC 32.3 g/dl (32.0-36.5); MEAN CORPUSCULAR VOLUME 98.1 fl (80.0-96.0); MONO # 0.8 10^3/uL (0.0-0.8); MONO % 12.2 % (2.0-8.0); NEUTROPHILS # 3.2 10^3/uL (1.5-8.5); NEUTROPHILS % 48.6 % (36.0-66.0); PLATELET COUNT, AUTOMATED 123 10^3/uL (150-450); RED BLOOD COUNT 3.75 10^6/uL (4.00-5.40); WHITE BLOOD COUNT 6.5 10^3/uL (4.0-10.0)
[2022-03-27] MEDS ORDERED: KETOROLAC 30 MG/ML 1ML VIAL IV ONE (16:30)
[2022-03-27 16:47] LABS: RSV AMPLIFICATION NEGATIVE (NEGATIVE)
[2022-03-27 17:01] LABS: ALBUMIN 2.9 GM/DL (3.2-5.2); ALT/SGPT 36 U/L (12-78); BILIRUBIN,DIRECT 0.2 MG/DL (0.0-0.2); BILIRUBIN,TOTAL 0.5 MG/DL (0.2-1.0); LIPASE 215 U/L (73-393); TOTAL PROTEIN 6.7 GM/DL (6.4-8.2)
[2022-03-27] MEDS ORDERED: MED REC COMMENT (17:35)
[2022-03-27] MEDS ORDERED: HOME MED LIST COMPLETE! XX SCH (17:40)
[2022-03-27] MEDS ORDERED: LACTULOSE 20 GM/30 ML SYRUP UD PO ONE (18:30)
[2022-03-27 18:43] LABS: INR 1.08; PROTHROMBIN TIME 14.2 SECONDS (12.5-14.5)
[2022-03-27 18:44] LABS: PARTIAL THROMBOPLASTIN TIME 31.8 SECONDS (24.8-34.2)
[2022-03-27] MEDS: FUROSEMIDE 40MG/4ML VIAL (J1940) IV SCH (19:22)
[2022-03-27 21:46] VITALS: BP 131/75
[2022-03-27 22:25] LABS: C REACTIVE PROTEIN QUANTITATIV < 0.30 MG/DL (0.00-0.30)
[2022-03-28] MEDS ORDERED: ACETAMINOPHEN TAB 650MG DOSE (2X325MG) PO PRN (00:20)
[2022-03-28] MEDS: FUROSEMIDE 40MG/4ML VIAL (J1940) IV SCH ×2 (00:34→05:24)
[2022-03-28 06:29] VITALS: BP 127/88
[2022-03-28] MEDS ORDERED: MIDODRINE 5 MG TAB PO SCH (08:00)
[2022-03-28] MEDS ORDERED: FLUBLOK(EGG FREE)(QUAD)INFLUENZA VACC 0.5ML SYRINGE 18YRS & OLDER IM.IMMUN ONE (09:00)
[2022-03-28] MEDS ORDERED: PANTOPRAZOLE 20 MG TAB PO SCH (09:00)
== END 2022-03-28 11:10 | disposition home or self-care (01) ==
LOC: M ED 14:48 → M ED INP 14:49 → INTOOBSV 17:42 → UNDOADMOB 17:42 → M ED INP 17:42 → ENRESERV 20:59 → M MS5PR 21:52 → M ED INP 21:52 → UNDODISOB 03-28 11:10
PROVIDERS: ADMIT General Practice; ATTEND General Practice
DX: K70.31 Alcoholic cirrhosis of liver with ascites (principal); K76.6 Portal hypertension; F10.11 Alcohol abuse, in remission; F19.10 Other psychoactive substance abuse, uncomplicated; F17.210 Nicotine dependence, cigarettes, uncomplicated; E44.0 Moderate protein-calorie malnutrition; D63.8 Anemia in other chronic diseases classified elsewhere; E51.2 Wernicke's encephalopathy; Z79.899 Other long term (current) drug therapy
CPT/HCPCS: 76700; 80047; 80076; 82140; 83690; 84145; 85025; 85610; 85652; 85730; 86140; 87631; 96374; 96375; 96376; 99284; G0008; G0378; J1885; J1940

== ENCOUNTER 2022-03-30 10:28 | Emergency (ER) | payer MEDICARE, OTHER ==
[~2022-03-30] VITALS: Ht 160 cm; Wt 58.6 kg
[~2022-03-30 10:28] MED LIST changes: +MED REC COMMENT
[2022-03-30 14:17] LABS: BASO # 0.1 10^3/uL (0.0-0.2); BASO % 0.9 % (0.0-1.0); EOS # 0.8 10^3/uL (0.0-0.5); EOS % 14.2 % (0.0-3.0); HEMATOCRIT 34.1 % (36.0-47.0); HEMOGLOBIN 11.4 g/dl (12.0-15.5); LYMPH # 1.6 10^3/uL (1.5-5.0); LYMPH % 30.7 % (24.0-44.0); MEAN CORPUSCULAR HEMOGLOBIN 32.1 pg (27.0-33.0); MEAN CORPUSCULAR HGB CONC 33.4 g/dl (32.0-36.5); MEAN CORPUSCULAR VOLUME 96.1 fl (80.0-96.0); MONO # 0.7 10^3/uL (0.0-0.8); MONO % 12.5 % (2.0-8.0); NEUTROPHILS # 2.2 10^3/uL (1.5-8.5); NEUTROPHILS % 41.5 % (36.0-66.0); PLATELET COUNT, AUTOMATED 111 10^3/uL (150-450); RED BLOOD COUNT 3.55 10^6/uL (4.00-5.40); WHITE BLOOD COUNT 5.3 10^3/uL (4.0-10.0)
[2022-03-30 14:27] LABS: INR 1.02; PROTHROMBIN TIME 13.6 SECONDS (12.5-14.5)
[2022-03-30 14:28] LABS: PARTIAL THROMBOPLASTIN TIME 30.4 SECONDS (24.8-34.2)
[2022-03-30 14:49] LABS: ALBUMIN 2.8 GM/DL (3.2-5.2); ALT/SGPT 33 U/L (12-78); BILIRUBIN,TOTAL 0.4 MG/DL (0.2-1.0); BLOOD UREA NITROGEN 13 MG/DL (7-18); CALCIUM LEVEL 8.2 MG/DL (8.8-10.2); CARBON DIOXIDE LEVEL 24 MEQ/L (21-32); CHLORIDE LEVEL 109 MEQ/L (98-107); CREATININE FOR GFR 0.96 MG/DL (0.55-1.30); GLOMERULAR FILTRATION RATE > 60.0 (>45); GLUCOSE, FASTING 97 MG/DL (70-100); POTASSIUM SERUM 3.5 MEQ/L (3.5-5.1); SODIUM LEVEL 140 MEQ/L (136-145); TOTAL PROTEIN 6.7 GM/DL (6.4-8.2)
[2022-03-30 15:55] VITALS: BP 135/60
== END 2022-03-30 16:02 | disposition home or self-care (01) ==
LOC: M ED 10:28
DX: K70.31 Alcoholic cirrhosis of liver with ascites (principal); Z79.51 Long term (current) use of inhaled steroids; Z79.899 Other long term (current) drug therapy

== ENCOUNTER 2022-04-09 11:26 | Emergency (ER) | payer MEDICARE, OTHER ==
[~2022-04-09] VITALS: Ht 152.4 cm; Wt 64.0 kg
[2022-04-09 11:28] VITALS: BP 144/63
== END 2022-04-09 12:32 | disposition left against medical advice (07) ==
LOC: M ED 11:26
DX: Z53.21 Procedure and treatment not carried out due to patient leaving prior to being seen by health care provider (principal)

== ENCOUNTER 2022-04-14 12:53 | Emergency (ER) | payer MEDICARE, OTHER ==
[~2022-04-14] VITALS: Ht 160 cm; Wt 66.9 kg
[2022-04-14 12:54] VITALS: BP 138/70
== END 2022-04-14 14:10 | disposition left against medical advice (07) ==
LOC: M ED 12:53
DX: Z53.21 Procedure and treatment not carried out due to patient leaving prior to being seen by health care provider (principal)

== ENCOUNTER → 2022-04-14 | Outpatient (CLI) | payer MEDICARE, OTHER ==
[2022-04-14 15:25] VITALS: BP 131/70
== END ==
LOC: M IRPRO 14:06
PROVIDERS: ATTEND General Practice
DX: K70.31 Alcoholic cirrhosis of liver with ascites (principal)

== ENCOUNTER 2022-04-21 10:33 | Emergency (ER) | payer MEDICARE, OTHER, MEDICAID ==
[~2022-04-21] VITALS: Ht 160 cm; Wt 59.8 kg
[2022-04-21 14:38] LABS: BASO % 0.7 % (0.0-1.0); EOS # 0.4 10^3/uL (0.0-0.5); HEMATOCRIT 34.4 % (36.0-47.0); HEMOGLOBIN 11.3 g/dl (12.0-15.5); LYMPH # 1.5 10^3/uL (1.5-5.0); LYMPH % 27.3 % (24.0-44.0); MEAN CORPUSCULAR HEMOGLOBIN 31.4 pg (27.0-33.0); MEAN CORPUSCULAR HGB CONC 32.8 g/dl (32.0-36.5); MEAN CORPUSCULAR VOLUME 95.6 fl (80.0-96.0); MONO # 0.6 10^3/uL (0.0-0.8); MONO % 9.8 % (2.0-8.0); NEUTROPHILS # 3.1 10^3/uL (1.5-8.5); PLATELET COUNT, AUTOMATED 126 10^3/uL (150-450); WHITE BLOOD COUNT 5.6 10^3/uL (4.0-10.0)
[2022-04-21 15:09] LABS: ALBUMIN 2.5 GM/DL (3.2-5.2); ALT/SGPT 31 U/L (12-78); BILIRUBIN,DIRECT 0.2 MG/DL (0.0-0.2); BILIRUBIN,TOTAL 0.5 MG/DL (0.2-1.0); BLOOD UREA NITROGEN 14 MG/DL (7-18); CALCIUM LEVEL 7.9 MG/DL (8.8-10.2); CARBON DIOXIDE LEVEL 24 MEQ/L (21-32); CHLORIDE LEVEL 109 MEQ/L (98-107); CREATININE FOR GFR 0.84 MG/DL (0.55-1.30); GLOMERULAR FILTRATION RATE > 60.0 (>45); GLUCOSE, FASTING 89 MG/DL (70-100); LIPASE 120 U/L (73-393); POTASSIUM SERUM 3.2 MEQ/L (3.5-5.1); SODIUM LEVEL 142 MEQ/L (136-145); TOTAL PROTEIN 6.1 GM/DL (6.4-8.2)
[2022-04-21 16:25] VITALS: BP 119/57
== END 2022-04-21 16:33 | disposition home or self-care (01) ==
LOC: M ED 10:33
DX: R18.8 Other ascites (principal); F17.200 Nicotine dependence, unspecified, uncomplicated; Z79.899 Other long term (current) drug therapy

== ENCOUNTER 2022-05-05 11:37 | Observation (INO) | payer MEDICARE, OTHER ==
[~2022-05-05] VITALS: Ht 160 cm; Wt 56.3 kg
[2022-05-05 14:56] LABS: BASO # 0.1 10^3/uL (0.0-0.2); BASO % 0.8 % (0.0-1.0); EOS # 0.3 10^3/uL (0.0-0.5); EOS % 5.1 % (0.0-3.0); HEMATOCRIT 35.4 % (36.0-47.0); HEMOGLOBIN 11.4 g/dl (12.0-15.5); LYMPH # 1.7 10^3/uL (1.5-5.0); LYMPH % 26.8 % (24.0-44.0); MEAN CORPUSCULAR HEMOGLOBIN 30.7 pg (27.0-33.0); MEAN CORPUSCULAR HGB CONC 32.2 g/dl (32.0-36.5); MEAN CORPUSCULAR VOLUME 95.4 fl (80.0-96.0); MONO # 0.7 10^3/uL (0.0-0.8); NEUTROPHILS # 3.7 10^3/uL (1.5-8.5); PLATELET COUNT, AUTOMATED 117 10^3/uL (150-450); RED BLOOD COUNT 3.71 10^6/uL (4.00-5.40); WHITE BLOOD COUNT 6.5 10^3/uL (4.0-10.0)
[2022-05-05 15:05] LABS: INR 1.09; PROTHROMBIN TIME 14.3 SECONDS (12.5-14.5)
[2022-05-05 15:35] LABS: ALBUMIN 2.8 G/DL (3.2-5.2); ALT/SGPT 23 U/L (7.0-40); BILIRUBIN,DIRECT 0.3 MG/DL (<0.4); BILIRUBIN,TOTAL 0.7 MG/DL (0.3-1.2); BLOOD UREA NITROGEN 15 MG/DL (9-23); CALCIUM LEVEL 8.2 MG/DL (8.3-10.6); CARBON DIOXIDE LEVEL 26 MMOL/L (20-31); CHLORIDE LEVEL 105 MMOL/L (98-107); CREATININE FOR GFR 0.88 MG/DL (0.55-1.30); GLOMERULAR FILTRATION RATE > 60.0 (>45); GLUCOSE, FASTING 91 MG/DL (74-106); LIPASE 32 U/L (12-53); POTASSIUM SERUM 3.9 MMOL/L (3.5-5.1); SODIUM LEVEL 139 MMOL/L (136-145); TOTAL PROTEIN 6.3 G/DL (5.7-8.2)
[2022-05-05] MEDS ORDERED: LORazepam 2 MG TAB PO PRN (17:30)
[2022-05-05] MEDS ORDERED: BAYE325T13 PO (17:48)
[2022-05-05] MEDS ORDERED: HOME MED LIST COMPLETE! XX SCH (17:50)
[2022-05-05 17:52] LABS: RSV AMPLIFICATION NEGATIVE (NEGATIVE)
[2022-05-05] MEDS: THIAMINE 100 MG TAB PO SCH (21:35)
[2022-05-05] MEDS: LACTULOSE 20 GM/30 ML SYRUP UD PO SCH (21:35)
[2022-05-06] MEDS ORDERED: UNRESOLVED CLARIFICATION ENTRY XX SCH ×2 (00:01)
[2022-05-06 01:15] VITALS: BP 117/73
[2022-05-06 05:04] VITALS: BP 115/64
[2022-05-06 06:07] LABS: HEMATOCRIT 32.3 % (36.0-47.0); HEMOGLOBIN 10.7 g/dl (12.0-15.5); MEAN CORPUSCULAR HEMOGLOBIN 31.8 pg (27.0-33.0); MEAN CORPUSCULAR HGB CONC 33.1 g/dl (32.0-36.5); MEAN CORPUSCULAR VOLUME 96.1 fl (80.0-96.0); PLATELET COUNT, AUTOMATED 109 10^3/uL (150-450); RED BLOOD COUNT 3.36 10^6/uL (4.00-5.40); WHITE BLOOD COUNT 6.2 10^3/uL (4.0-10.0)
[2022-05-06 06:33] LABS: ALBUMIN 2.4 G/DL (3.2-5.2); ALT/SGPT 21 U/L (7.0-40); BILIRUBIN,TOTAL 0.5 MG/DL (0.3-1.2); BLOOD UREA NITROGEN 15 MG/DL (9-23); CALCIUM LEVEL 7.7 MG/DL (8.3-10.6); CARBON DIOXIDE LEVEL 24 MMOL/L (20-31); CHLORIDE LEVEL 106 MMOL/L (98-107); CREATININE FOR GFR 0.91 MG/DL (0.55-1.30); GLOMERULAR FILTRATION RATE > 60.0 (>45); GLUCOSE, FASTING 105 MG/DL (74-106); POTASSIUM SERUM 3.4 MMOL/L (3.5-5.1); SODIUM LEVEL 139 MMOL/L (136-145); TOTAL PROTEIN 5.3 G/DL (5.7-8.2)
[2022-05-06] MEDS ORDERED: POTASSIUM CHLORIDE 10MEQ SR TABLET PO ONE (07:45)
[2022-05-06] MEDS: THIAMINE 100 MG TAB PO SCH (08:12)
[2022-05-06] MEDS: KCL 10MEQ/100ML SWI (KRUN) 10 MEQ in IV 1 EA IV SCH ×2 (08:13→09:22)
[2022-05-06] MEDS: LACTULOSE 20 GM/30 ML SYRUP UD PO SCH (08:13)
[2022-05-06] MEDS ORDERED: FOLIC ACID 1MG TAB PO SCH (09:00)
[2022-05-06] MEDS ORDERED: FUROSEMIDE 40 MG TAB PO SCH (09:00)
[2022-05-06] MEDS ORDERED: ENOXAPARIN 40MG/0.4ML SYRINGE (J1650 PER 10MG) SC SCH (09:00)
[2022-05-06] MEDS ORDERED: SPIRONOLACTONE 50 MG TAB PO SCH (09:00)
[2022-05-06] MEDS ORDERED: MULTIVITAMINS/MINERALS THERAP 1 TAB PO SCH (09:00)
[2022-05-06 13:30] VITALS: BP 108/72
[2022-05-06] MEDS ORDERED: LACT20EL PO (13:30)
[2022-05-06] MEDS ORDERED: FOLI1TAB11 PO (13:30)
[2022-05-06] MEDS ORDERED: VITMTA PO (13:30)
[2022-05-06] MEDS ORDERED: ALDA50TA2 PO (13:30)
[2022-05-06] MEDS ORDERED: THIA100TA PO (13:30)
[2022-05-06] MEDS ORDERED: LASI40TA9 PO (13:52)
[2022-05-06 15:32] VITALS: BP 96/51
[2022-05-06 17:16] VITALS: BP 108/62
[2022-05-06] MEDS ORDERED: DOXYCYCLINE HYCLATE 100MG TABLET PO ONE (17:40)
[2022-05-06] MEDS ORDERED: DOXY100C3 PO (17:42)
== END 2022-05-06 18:35 | disposition home or self-care (01) ==
LOC: M ED 11:37 → M ED INP 11:38 → M MSPAV 05-06 01:13
PROVIDERS: ADMIT Internal Medicine; ATTEND Internal Medicine
DX: R18.8 Other ascites (principal); K70.30 Alcoholic cirrhosis of liver without ascites; K05.00 Acute gingivitis, plaque induced; F17.210 Nicotine dependence, cigarettes, uncomplicated; F10.20 Alcohol dependence, uncomplicated; Z79.899 Other long term (current) drug therapy
CPT/HCPCS: 36415; 49083; 80048; 80053; 80076; 83690; 85025; 85027; 85610; 85730; 87631; 96361; 96372; 99284; G0378; J1650; P9047

== ENCOUNTER 2022-05-20 09:32 | Emergency (ER) | payer MEDICARE, OTHER ==
[~2022-05-20] VITALS: Ht 160 cm; Wt 58.3 kg
[~2022-05-20 09:32] MED LIST changes: +BAYE325T13 PO; +DOXY100C3 PO; +LASI40TA9 PO
[2022-05-20 10:50] LABS: BASO % 0.7 % (0.0-1.0); EOS # 0.4 10^3/uL (0.0-0.5); EOS % 7.2 % (0.0-3.0); HEMATOCRIT 39.3 % (36.0-47.0); HEMOGLOBIN 12.8 g/dl (12.0-15.5); LYMPH # 1.4 10^3/uL (1.5-5.0); LYMPH % 23.6 % (24.0-44.0); MEAN CORPUSCULAR HEMOGLOBIN 31.1 pg (27.0-33.0); MEAN CORPUSCULAR HGB CONC 32.6 g/dl (32.0-36.5); MEAN CORPUSCULAR VOLUME 95.4 fl (80.0-96.0); MONO # 0.5 10^3/uL (0.0-0.8); MONO % 8.2 % (2.0-8.0); NEUTROPHILS # 3.4 10^3/uL (1.5-8.5); NEUTROPHILS % 60.1 % (36.0-66.0); PLATELET COUNT, AUTOMATED 134 10^3/uL (150-450); RED BLOOD COUNT 4.12 10^6/uL (4.00-5.40); WHITE BLOOD COUNT 5.7 10^3/uL (4.0-10.0)
[2022-05-20 11:15] LABS: BILIRUBIN,DIRECT 0.4 MG/DL (<0.4); TOTAL PROTEIN 6.7 G/DL (5.7-8.2)
[2022-05-20 15:55] VITALS: BP 123/63
== END 2022-05-20 16:31 | disposition home or self-care (01) ==
LOC: M ED 09:32
DX: K70.31 Alcoholic cirrhosis of liver with ascites (principal); E11.9 Type 2 diabetes mellitus without complications; D64.9 Anemia, unspecified; E03.9 Hypothyroidism, unspecified; Z87.448 Personal history of other diseases of urinary system; F17.200 Nicotine dependence, unspecified, uncomplicated

== ENCOUNTER 2022-06-02 10:24 | Emergency (ER) | payer MEDICARE, OTHER ==
[~2022-06-02] VITALS: Ht 160 cm; Wt 62.3 kg
[2022-06-02 15:01] LABS: BASO % 0.7 % (0.0-1.0); EOS # 0.6 10^3/uL (0.0-0.5); EOS % 9.9 % (0.0-3.0); HEMATOCRIT 32.4 % (36.0-47.0); HEMOGLOBIN 10.7 g/dl (12.0-15.5); LYMPH # 1.8 10^3/uL (1.5-5.0); LYMPH % 31.6 % (24.0-44.0); MEAN CORPUSCULAR HEMOGLOBIN 31.1 pg (27.0-33.0); MEAN CORPUSCULAR VOLUME 94.2 fl (80.0-96.0); MONO # 0.5 10^3/uL (0.0-0.8); MONO % 9.4 % (2.0-8.0); NEUTROPHILS # 2.7 10^3/uL (1.5-8.5); NEUTROPHILS % 48.2 % (36.0-66.0); PLATELET COUNT, AUTOMATED 116 10^3/uL (150-450); RED BLOOD COUNT 3.44 10^6/uL (4.00-5.40); WHITE BLOOD COUNT 5.5 10^3/uL (4.0-10.0)
[2022-06-02 15:18] LABS: INR 1.07; PARTIAL THROMBOPLASTIN TIME 29.7 SECONDS (24.8-34.2); PROTHROMBIN TIME 14.1 SECONDS (12.5-14.5)
[2022-06-02 15:25] LABS: ALBUMIN 2.6 G/DL (3.2-5.2); ALKALINE PHOSPHATASE 81 U/L (46-116); ALT/SGPT 25 U/L (7.0-40); AST/SGOT 36 U/L (<34); BILIRUBIN,TOTAL 0.8 MG/DL (0.3-1.2); BLOOD UREA NITROGEN 15 MG/DL (9-23); CARBON DIOXIDE LEVEL 27 MMOL/L (20-31); CHLORIDE LEVEL 109 MMOL/L (98-107); GLOMERULAR FILTRATION RATE > 60.0 (>45); GLUCOSE, FASTING 89 MG/DL (74-106); POTASSIUM SERUM 3.7 MMOL/L (3.5-5.1); SODIUM LEVEL 141 MMOL/L (136-145); TOTAL PROTEIN 5.6 G/DL (5.7-8.2)
[2022-06-02 17:12] VITALS: BP 126/68
== END 2022-06-02 17:50 | disposition home or self-care (01) ==
LOC: M ED 10:24
DX: R18.8 Other ascites (principal); F17.200 Nicotine dependence, unspecified, uncomplicated

== ENCOUNTER 2022-06-16 11:54 | Emergency (ER) | payer MEDICARE, OTHER ==
[~2022-06-16] VITALS: Ht 160 cm; Wt 63.1 kg
[2022-06-16 17:36] LABS: BASO % 0.4 % (0.0-1.0); EOS # 0.5 10^3/uL (0.0-0.5); EOS % 9.4 % (0.0-3.0); HEMATOCRIT 39.4 % (36.0-47.0); HEMOGLOBIN 12.8 g/dl (12.0-15.5); LYMPH # 1.3 10^3/uL (1.5-5.0); LYMPH % 26.9 % (24.0-44.0); MEAN CORPUSCULAR HEMOGLOBIN 31.1 pg (27.0-33.0); MEAN CORPUSCULAR HGB CONC 32.5 g/dl (32.0-36.5); MEAN CORPUSCULAR VOLUME 95.6 fl (80.0-96.0); MONO # 0.4 10^3/uL (0.0-0.8); NEUTROPHILS # 2.7 10^3/uL (1.5-8.5); NEUTROPHILS % 55.1 % (36.0-66.0); PLATELET COUNT, AUTOMATED 117 10^3/uL (150-450); RED BLOOD COUNT 4.12 10^6/uL (4.00-5.40); WHITE BLOOD COUNT 4.9 10^3/uL (4.0-10.0)
[2022-06-16 17:51] LABS: ALBUMIN 3.1 G/DL (3.2-5.2); BILIRUBIN,TOTAL 0.7 MG/DL (0.3-1.2); CALCIUM LEVEL 8.6 MG/DL (8.3-10.6); CREATININE FOR GFR 1.05 MG/DL (0.55-1.30); GLOMERULAR FILTRATION RATE 55.5 (>45); POTASSIUM SERUM 3.9 MMOL/L (3.5-5.1); TOTAL PROTEIN 6.7 G/DL (5.7-8.2)
[2022-06-16 17:57] LABS: INR 1.05; PROTHROMBIN TIME 13.9 SECONDS (12.5-14.5)
[2022-06-16 17:58] LABS: PARTIAL THROMBOPLASTIN TIME 28.9 SECONDS (24.8-34.2)
[2022-06-16 18:13] VITALS: BP 130/60
== END 2022-06-16 18:15 | disposition home or self-care (01) ==
LOC: M ED 11:54
DX: K70.31 Alcoholic cirrhosis of liver with ascites (principal); I50.9 Heart failure, unspecified; E03.9 Hypothyroidism, unspecified; Z79.51 Long term (current) use of inhaled steroids; Z79.899 Other long term (current) drug therapy

== ENCOUNTER 2022-07-04 10:28 | Emergency (ER) | payer MEDICARE, OTHER ==
[~2022-07-04] VITALS: Ht 157.5 cm; Wt 61.2 kg
[2022-07-04 13:07] LABS: BASO % 0.7 % (0.0-1.0); EOS # 0.5 10^3/uL (0.0-0.5); EOS % 8.4 % (0.0-3.0); HEMATOCRIT 36.1 % (36.0-47.0); HEMOGLOBIN 11.8 g/dl (12.0-15.5); LYMPH # 1.6 10^3/uL (1.5-5.0); LYMPH % 26.5 % (24.0-44.0); MEAN CORPUSCULAR HEMOGLOBIN 31.1 pg (27.0-33.0); MEAN CORPUSCULAR HGB CONC 32.7 g/dl (32.0-36.5); MONO # 0.5 10^3/uL (0.0-0.8); MONO % 9.1 % (2.0-8.0); NEUTROPHILS # 3.3 10^3/uL (1.5-8.5); NEUTROPHILS % 55.3 % (36.0-66.0); PLATELET COUNT, AUTOMATED 119 10^3/uL (150-450); WHITE BLOOD COUNT 5.9 10^3/uL (4.0-10.0)
[2022-07-04 13:18] LABS: INR 1.02; PROTHROMBIN TIME 13.6 SECONDS (12.5-14.5)
[2022-07-04 13:37] LABS: ALBUMIN 2.7 G/DL (3.2-5.2); ALKALINE PHOSPHATASE 82 U/L (46-116); ALT/SGPT 25 U/L (7.0-40); AST/SGOT 37 U/L (<34); BILIRUBIN,TOTAL 0.6 MG/DL (0.3-1.2); BLOOD UREA NITROGEN 16 MG/DL (9-23); CALCIUM LEVEL 8.1 MG/DL (8.3-10.6); CARBON DIOXIDE LEVEL 23 MMOL/L (20-31); CHLORIDE LEVEL 111 MMOL/L (98-107); CREATININE FOR GFR 0.85 MG/DL (0.55-1.30); GLOMERULAR FILTRATION RATE > 60.0 (>45); GLUCOSE, FASTING 97 MG/DL (74-106); POTASSIUM SERUM 3.8 MMOL/L (3.5-5.1); SODIUM LEVEL 142 MMOL/L (136-145)
[2022-07-04 13:58] VITALS: BP 133/70
== END 2022-07-04 13:59 | disposition home or self-care (01) ==
LOC: M ED 10:28
DX: K74.60 Unspecified cirrhosis of liver (principal); R18.8 Other ascites; F17.200 Nicotine dependence, unspecified, uncomplicated

== ENCOUNTER 2022-07-09 09:07 | Emergency (ER) | payer MEDICARE, OTHER ==
[~2022-07-09] VITALS: Ht 160 cm; Wt 65.0 kg
[2022-07-09 11:14] LABS: BASO % 0.7 % (0.0-1.0); EOS # 0.7 10^3/uL (0.0-0.5); EOS % 12.1 % (0.0-3.0); HEMATOCRIT 37.5 % (36.0-47.0); HEMOGLOBIN 12.4 g/dl (12.0-15.5); LYMPH # 1.4 10^3/uL (1.5-5.0); MEAN CORPUSCULAR HEMOGLOBIN 31.2 pg (27.0-33.0); MEAN CORPUSCULAR HGB CONC 33.1 g/dl (32.0-36.5); MEAN CORPUSCULAR VOLUME 94.5 fl (80.0-96.0); MONO # 0.5 10^3/uL (0.0-0.8); MONO % 8.2 % (2.0-8.0); NEUTROPHILS # 3.3 10^3/uL (1.5-8.5); NEUTROPHILS % 55.7 % (36.0-66.0); PLATELET COUNT, AUTOMATED 123 10^3/uL (150-450); RED BLOOD COUNT 3.97 10^6/uL (4.00-5.40); WHITE BLOOD COUNT 5.9 10^3/uL (4.0-10.0)
[2022-07-09 11:44] LABS: INR 1.07; PARTIAL THROMBOPLASTIN TIME 30.3 SECONDS (24.8-34.2); PROTHROMBIN TIME 14.1 SECONDS (12.5-14.5)
[2022-07-09 12:05] LABS: ALBUMIN 3.1 G/DL (3.2-5.2); ALKALINE PHOSPHATASE 105 U/L (46-116); ALT/SGPT 31 U/L (7.0-40); AST/SGOT 38 U/L (<34); BILIRUBIN,TOTAL 0.7 MG/DL (0.3-1.2); BLOOD UREA NITROGEN 13 MG/DL (9-23); CALCIUM LEVEL 8.6 MG/DL (8.3-10.6); CARBON DIOXIDE LEVEL 26 MMOL/L (20-31); CHLORIDE LEVEL 108 MMOL/L (98-107); CREATININE FOR GFR 0.82 MG/DL (0.55-1.30); GLOMERULAR FILTRATION RATE > 60.0 (>45); GLUCOSE, FASTING 84 MG/DL (74-106); POTASSIUM SERUM 3.8 MMOL/L (3.5-5.1); SODIUM LEVEL 140 MMOL/L (136-145); TOTAL PROTEIN 7.1 G/DL (5.7-8.2)
[2022-07-09] MEDS ORDERED: LIDOCAINE 1% MDV 20ML VIAL As Ordered ONE (13:59)
[2022-07-09 15:52] VITALS: BP 135/70
== END 2022-07-09 16:19 | disposition home or self-care (01) ==
LOC: M ED 09:07
DX: K74.60 Unspecified cirrhosis of liver (principal); R18.8 Other ascites; Z79.899 Other long term (current) drug therapy

== ENCOUNTER → 2022-07-27 | Outpatient (CLI) | payer MEDICARE, OTHER ==
[2022-07-27 13:51] VITALS: BP 132/79
[2022-07-27 14:01] VITALS: BP 121/73
[2022-07-27 14:09] VITALS: BP 113/65
[2022-07-27 14:20] VITALS: BP 114/68
[2022-07-27 16:26] VITALS: BP 125/56
== END ==
LOC: M IRPRO 13:18
PROVIDERS: ATTEND Internal Medicine Gastroenterology
DX: K70.31 Alcoholic cirrhosis of liver with ascites (principal)
CPT/HCPCS: 49083; 96365; P9047

== ENCOUNTER 2022-08-06 09:58 | Emergency (ER) | payer MEDICARE, OTHER ==
[~2022-08-06] VITALS: Ht 157.5 cm; Wt 54.5 kg
[2022-08-06 12:33] LABS: BASO % 0.6 % (0.0-1.0); EOS # 0.5 10^3/uL (0.0-0.5); EOS % 9.2 % (0.0-3.0); HEMATOCRIT 34.6 % (36.0-47.0); HEMOGLOBIN 11.4 g/dl (12.0-15.5); LYMPH % 19.6 % (24.0-44.0); MEAN CORPUSCULAR HEMOGLOBIN 30.9 pg (27.0-33.0); MEAN CORPUSCULAR HGB CONC 32.9 g/dl (32.0-36.5); MEAN CORPUSCULAR VOLUME 93.8 fl (80.0-96.0); MONO # 0.5 10^3/uL (0.0-0.8); MONO % 9.6 % (2.0-8.0); NEUTROPHILS # 3.1 10^3/uL (1.5-8.5); PLATELET COUNT, AUTOMATED 126 10^3/uL (150-450); RED BLOOD COUNT 3.69 10^6/uL (4.00-5.40)
[2022-08-06 12:47] LABS: INR 1.07; PROTHROMBIN TIME 14.1 SECONDS (12.5-14.5)
[2022-08-06 12:49] LABS: PARTIAL THROMBOPLASTIN TIME 29.1 SECONDS (24.8-34.2)
[2022-08-06 13:07] LABS: BILIRUBIN,DIRECT 0.2 MG/DL (<0.4); BILIRUBIN,TOTAL 0.5 MG/DL (0.3-1.2); CALCIUM LEVEL 8.6 MG/DL (8.3-10.6); CREATININE FOR GFR 0.99 MG/DL (0.55-1.30); GLOMERULAR FILTRATION RATE 59.4 (>45); POTASSIUM SERUM 3.7 MMOL/L (3.5-5.1); TOTAL PROTEIN 6.3 G/DL (5.7-8.2)
[2022-08-06] MEDS ORDERED: LIDOCAINE 1% MDV 20ML VIAL As Ordered ONE (13:09)
[2022-08-06 15:41] VITALS: BP 130/61
== END 2022-08-06 15:42 | disposition home or self-care (01) ==
LOC: M ED 09:58 → EDBD 09:58 → M ED 15:42
DX: R18.8 Other ascites (principal); D64.9 Anemia, unspecified; E03.9 Hypothyroidism, unspecified; F17.200 Nicotine dependence, unspecified, uncomplicated

== ENCOUNTER 2022-08-18 13:21 | Emergency (ER) | payer MEDICARE, OTHER | END 2022-08-18 13:45 | disposition left against medical advice (07) | LOC: EDBD 13:21 → M ED 13:21 | DX: Z53.21 Procedure and treatment not carried out due to patient leaving prior to being seen by health care provider (principal) ==

== ENCOUNTER → 2022-08-18 | Outpatient (CLI) | payer MEDICARE, OTHER ==
[2022-08-18 14:41] VITALS: BP 150/86
[2022-08-18 15:00] VITALS: BP 152/80
[2022-08-18 15:06] VITALS: BP 148/79
[2022-08-18 15:12] VITALS: BP 149/86
== END ==
LOC: M IRPRO 14:04
PROVIDERS: ATTEND Internal Medicine Gastroenterology
DX: R18.8 Other ascites (principal); K70.30 Alcoholic cirrhosis of liver without ascites
CPT/HCPCS: 49083; 96365; P9047

== ENCOUNTER → 2022-09-01 | Outpatient (CLI) | payer MEDICARE, OTHER ==
[2022-09-01 10:27] VITALS: BP 131/81
[2022-09-01 10:36] VITALS: BP 127/71
[2022-09-01 10:42] VITALS: BP 131/74
[2022-09-01 10:52] VITALS: BP 131/74
[2022-09-01 11:05] VITALS: BP 128/74
== END ==
LOC: M IRPRO 09:47
PROVIDERS: ATTEND Internal Medicine Gastroenterology
DX: K70.31 Alcoholic cirrhosis of liver with ascites (principal)
CPT/HCPCS: 49083; 96365; P9047

== ENCOUNTER → 2022-09-09 | Outpatient (CLI) | payer MEDICARE, OTHER ==
[2022-09-09 16:12] VITALS: BP 135/64
[2022-09-09 16:18] VITALS: BP 135/64
[2022-09-09 16:26] VITALS: BP 139/67
[2022-09-09 16:36] VITALS: BP 138/71
[2022-09-09 16:44] VITALS: BP 137/72
== END ==
LOC: M IRPRO 14:11
PROVIDERS: ATTEND Internal Medicine Gastroenterology
DX: K70.31 Alcoholic cirrhosis of liver with ascites (principal)
CPT/HCPCS: 49083; 96365; P9047

== ENCOUNTER → 2022-09-30 | Outpatient (CLI) | payer MEDICARE, OTHER ==
[~2022-09-30] MED LIST changes: +LIDOCAINE 1% MDV 20ML VIAL As Ordered ONE
[2022-09-30 09:45] VITALS: BP 133/75
[2022-09-30 11:57] LABS: APPEARANCE, BODY FLUID CLEAR (CLEAR); ASCITES FL COLOR PALE YELLOW (COLORLESS); SOURCE, BODY FLUID ASCITES
[2022-09-30 13:01] LABS: SOURCE, BODY FLUID ALBUMIN ASCITES
[2022-09-30 13:08] LABS: SOURCE, BODY FLUID TOT PROTEIN ASCITES; TOTAL PROTEIN, BODY FLUID < 2.0 G/DL (NOT ESTABLISHED)
== END ==
LOC: M IRPRO 08:25
PROVIDERS: ATTEND Internal Medicine Gastroenterology
DX: K70.31 Alcoholic cirrhosis of liver with ascites (principal)

== ENCOUNTER → 2022-10-07 | Outpatient (CLI) | payer MEDICARE, OTHER ==
[~2022-10-07] MED LIST changes: -LIDOCAINE 1% MDV 20ML VIAL As Ordered ONE
[2022-10-07 13:02] VITALS: BP 127/65
[2022-10-07 13:13] LABS: THYROID STIMULATING HORMONE 2.805 uIU/ML (0.55-4.78)
[2022-10-07 13:18] VITALS: BP 125/67
[2022-10-07 13:33] VITALS: BP 123/66
[2022-10-07 13:33] LABS: SOURCE, BODY FLUID ASCITES
[2022-10-07 13:34] LABS: APPEARANCE, BODY FLUID HAZY (CLEAR); ASCITES FL COLOR YELLOW (COLORLESS)
[2022-10-07 13:46] VITALS: BP 123/64
[2022-10-07 13:52] LABS: SOURCE, BODY FLUID ALBUMIN ASCITES
[2022-10-07 13:59] LABS: SOURCE, BODY FLUID TOT PROTEIN ASCITES; TOTAL PROTEIN, BODY FLUID < 2.0 G/DL (NOT ESTABLISHED)
[2022-10-07 14:05] VITALS: BP 126/66
== END ==
LOC: M IRPRO 11:41
PROVIDERS: ATTEND Internal Medicine Gastroenterology
DX: K70.31 Alcoholic cirrhosis of liver with ascites (principal)
CPT/HCPCS: 49083; 82042; 82105; 84157; 84443; 89051; 96365; P9047

== ENCOUNTER → 2022-10-21 | Outpatient (CLI) | payer MEDICARE, OTHER ==
[2022-10-21 11:39] LABS: HEMOGLOBIN 10.9 g/dl (12.0-15.5); MEAN CORPUSCULAR HEMOGLOBIN 30.5 pg (27.0-33.0); MEAN CORPUSCULAR VOLUME 92.4 fl (80.0-96.0); PLATELET COUNT, AUTOMATED 109 10^3/uL (150-450); RED BLOOD COUNT 3.57 10^6/uL (4.00-5.40); WHITE BLOOD COUNT 4.7 10^3/uL (4.0-10.0)
[2022-10-21 11:57] LABS: INR 1.05; PROTHROMBIN TIME 13.9 SECONDS (12.5-14.5)
[2022-10-21 13:03] VITALS: BP 128/60
[2022-10-21 13:11] VITALS: BP 122/66
[2022-10-21 13:15] VITALS: BP 123/66
[2022-10-21 13:20] VITALS: BP 123/65
[2022-10-21 13:45] LABS: APPEARANCE, BODY FLUID CLEAR (CLEAR); ASCITES FL COLOR PALE YELLOW (COLORLESS); SOURCE, BODY FLUID ASCITES
[2022-10-21 14:05] LABS: SOURCE, BODY FLUID ALBUMIN ASCITES
[2022-10-21 21:01] LABS: SOURCE, BODY FLUID TOT PROTEIN ASCITES; TOTAL PROTEIN, BODY FLUID < 2.0 G/DL (NOT ESTABLISHED)
== END ==
LOC: M IRPRO 11:03
PROVIDERS: ATTEND Internal Medicine Gastroenterology
DX: K70.31 Alcoholic cirrhosis of liver with ascites (principal)
CPT/HCPCS: 49083; 82042; 84157; 85027; 85610; 89051; 96374; P9047

== ENCOUNTER → 2022-10-28 | Outpatient (CLI) | payer MEDICARE, OTHER ==
[2022-10-28 12:30] VITALS: BP 125/58
[2022-10-28 12:36] VITALS: BP 125/55
[2022-10-28 12:41] VITALS: BP 111/81
[2022-10-28 12:47] VITALS: BP 121/67
[2022-10-28 13:07] LABS: APPEARANCE, BODY FLUID HAZY (CLEAR); ASCITES FL COLOR PALE YELLOW (COLORLESS); SOURCE, BODY FLUID ASCITES
[2022-10-28 14:18] LABS: SOURCE, BODY FLUID ALBUMIN ASCITES
[2022-10-28 14:25] LABS: SOURCE, BODY FLUID TOT PROTEIN ASCITES; TOTAL PROTEIN, BODY FLUID < 2.0 G/DL (NOT ESTABLISHED)
== END ==
LOC: M IRPRO 11:23
PROVIDERS: ATTEND Internal Medicine Gastroenterology
DX: K70.31 Alcoholic cirrhosis of liver with ascites (principal)
CPT/HCPCS: 49083; 82042; 84157; 89051; 96365; P9047

== ENCOUNTER → 2022-11-04 | Outpatient (CLI) | payer MEDICARE, OTHER ==
[2022-11-04 12:27] VITALS: BP 138/65; TEMP 97.2; O2SAT 93
[2022-11-04 12:39] VITALS: BP 136/67; TEMP 98; O2SAT 100
[2022-11-04 12:48] VITALS: BP 133/70; TEMP 98.1; O2SAT 100
[2022-11-04 12:56] VITALS: BP 134/69; TEMP 97.8; O2SAT 100
[2022-11-04 13:57] LABS: ASCITES FL COLOR PALE YELLOW (COLORLESS); SOURCE, BODY FLUID ASCITES
[2022-11-04 13:58] LABS: APPEARANCE, BODY FLUID HAZY (CLEAR)
[2022-11-04 15:13] LABS: SOURCE, BODY FLUID ALBUMIN ASCITES
[2022-11-04 15:20] LABS: SOURCE, BODY FLUID TOT PROTEIN ASCITES; TOTAL PROTEIN, BODY FLUID < 2.0 G/DL (NOT ESTABLISHED)
== END ==
LOC: M IRPRO 10:53
PROVIDERS: ATTEND Internal Medicine Gastroenterology
DX: K70.31 Alcoholic cirrhosis of liver with ascites (principal)
CPT/HCPCS: 49083; 82042; 84157; 89051; 96365; P9047

== ENCOUNTER → 2022-11-11 | Outpatient (CLI) | payer MEDICARE, OTHER ==
[2022-11-11 13:39] VITALS: BP 126/66
[2022-11-11 13:57] VITALS: BP 135/63
[2022-11-11 14:18] VITALS: BP 132/61
[2022-11-11 14:30] VITALS: BP 130/63
[2022-11-11 14:48] VITALS: BP 119/63
== END ==
LOC: M IRPRO 11:52
PROVIDERS: ATTEND Internal Medicine Gastroenterology
DX: K70.31 Alcoholic cirrhosis of liver with ascites (principal)
CPT/HCPCS: 49083; 96365; P9047

== ENCOUNTER → 2022-11-20 | Outpatient (CLI) | payer MEDICARE, OTHER ==
[2022-11-20 12:03] VITALS: BP 131/69; TEMP 98.7; O2SAT 98
[2022-11-20 12:10] VITALS: BP 123/65; TEMP 98; O2SAT 99
[2022-11-20 12:13] VITALS: BP 122/62; TEMP 97.9; O2SAT 99
[2022-11-20 12:16] VITALS: BP 124/66; TEMP 98; O2SAT 99
[2022-11-20 13:12] LABS: APPEARANCE, BODY FLUID HAZY (CLEAR); ASCITES FL COLOR PALE YELLOW (COLORLESS); SOURCE, BODY FLUID ASCITES
[2022-11-20 13:43] LABS: SOURCE, BODY FLUID ALBUMIN ASCITES
[2022-11-20 13:50] LABS: SOURCE, BODY FLUID TOT PROTEIN ASCITES; TOTAL PROTEIN, BODY FLUID < 2.0 G/DL (NOT ESTABLISHED)
== END ==
LOC: M IRPRO 11:32
PROVIDERS: ATTEND Internal Medicine Gastroenterology
DX: K70.31 Alcoholic cirrhosis of liver with ascites (principal)
CPT/HCPCS: 49083; 82042; 84157; 89051; 96365; P9047

== ENCOUNTER → 2022-12-04 | Outpatient (CLI) | payer MEDICARE, OTHER ==
[2022-12-04 13:05] VITALS: TEMP 98.8
[2022-12-04 13:44] LABS: HEMATOCRIT 33.2 % (36.0-47.0); HEMOGLOBIN 10.9 g/dl (12.0-15.5); MEAN CORPUSCULAR HEMOGLOBIN 30.1 pg (27.0-33.0); MEAN CORPUSCULAR HGB CONC 32.8 g/dl (32.0-36.5); MEAN CORPUSCULAR VOLUME 91.7 fl (80.0-96.0); PLATELET COUNT, AUTOMATED 112 10^3/uL (150-450); RED BLOOD COUNT 3.62 10^6/uL (4.00-5.40); WHITE BLOOD COUNT 6.2 10^3/uL (4.0-10.0)
[2022-12-04 13:54] LABS: INR 1.07; PROTHROMBIN TIME 14.1 SECONDS (12.5-14.5)
[2022-12-04 14:12] VITALS: BP 145/74; O2SAT 97
[2022-12-04 14:19] VITALS: BP 173/77; O2SAT 96
[2022-12-04 14:29] VITALS: BP 167/75; O2SAT 97
[2022-12-04 14:39] VITALS: BP 163/75; O2SAT 96
[2022-12-04 14:43] VITALS: BP 161/77; O2SAT 96
[2022-12-04 15:34] LABS: APPEARANCE, BODY FLUID CLEAR (CLEAR); PERITONEAL FL COLOR PALE YELLOW (COLORLESS); SOURCE, BODY FLUID PERITONEAL
[2022-12-04 15:46] LABS: SOURCE, BODY FLUID ALBUMIN PERITONEAL
[2022-12-04 15:54] LABS: SOURCE, BODY FLUID TOT PROTEIN PERITONEAL; TOTAL PROTEIN, BODY FLUID < 2.0 G/DL (NOT ESTABLISHED)
== END ==
LOC: M IRPRO 13:00
PROVIDERS: ATTEND Internal Medicine Gastroenterology
DX: K70.31 Alcoholic cirrhosis of liver with ascites (principal)
CPT/HCPCS: 49083; 82042; 84157; 85027; 85610; 89051; 96365; P9047

== ENCOUNTER → 2022-12-11 | Outpatient (CLI) | payer MEDICARE, OTHER ==
[2022-12-11 13:51] VITALS: BP 140/68; O2SAT 97
[2022-12-11 13:58] VITALS: BP 139/70; TEMP 98.6; O2SAT 97
[2022-12-11 14:03] VITALS: BP 135/71; TEMP 98.6; O2SAT 98
[2022-12-11 14:07] VITALS: BP 141/75; TEMP 98.6; O2SAT 98
[2022-12-11 14:12] VITALS: BP 142/75; TEMP 98.6; O2SAT 98
[2022-12-11 14:23] LABS: SOURCE, BODY FLUID ALBUMIN ASCITES
[2022-12-11 14:24] LABS: APPEARANCE, BODY FLUID HAZY (CLEAR); ASCITES FL COLOR YELLOW (COLORLESS); SOURCE, BODY FLUID ASCITES
[2022-12-11 14:30] LABS: SOURCE, BODY FLUID TOT PROTEIN ASCITES; TOTAL PROTEIN, BODY FLUID < 2.0 G/DL (NOT ESTABLISHED)
== END ==
LOC: M IRPRO 12:12
PROVIDERS: ATTEND Internal Medicine Gastroenterology
DX: K70.31 Alcoholic cirrhosis of liver with ascites (principal)
CPT/HCPCS: 49083; 82042; 84157; 89051; 96365; P9047

== ENCOUNTER → 2022-12-18 | Outpatient (CLI) | payer MEDICARE, OTHER | LOC: M IRPRO 12:45 | PROVIDERS: ATTEND Internal Medicine Gastroenterology | DX: K70.31 Alcoholic cirrhosis of liver with ascites (principal) ==

== ENCOUNTER → 2022-12-25 | Outpatient (CLI) | payer MEDICARE, OTHER | LOC: M IRPRO 13:14 | PROVIDERS: ATTEND Internal Medicine Gastroenterology | DX: K70.31 Alcoholic cirrhosis of liver with ascites (principal) ==

== ENCOUNTER → 2023-04-19 | Outpatient (REF) | payer MEDICARE, OTHER ==
[2023-04-19 17:20] LABS: BASO % 0.8 % (0.0-1.0); EOS # 0.3 10^3/uL (0.0-0.5); EOS % 5.5 % (0.0-3.0); HEMATOCRIT 35.7 % (36.0-47.0); HEMOGLOBIN 11.6 g/dl (12.0-15.5); LYMPH # 1.3 10^3/uL (1.5-5.0); LYMPH % 27.4 % (24.0-44.0); MEAN CORPUSCULAR HEMOGLOBIN 29.5 pg (27.0-33.0); MEAN CORPUSCULAR HGB CONC 32.5 g/dl (32.0-36.5); MEAN CORPUSCULAR VOLUME 90.8 fl (80.0-96.0); MONO # 0.4 10^3/uL (0.0-0.8); MONO % 7.8 % (2.0-8.0); NEUTROPHILS # 2.8 10^3/uL (1.5-8.5); NEUTROPHILS % 58.3 % (36.0-66.0); PLATELET COUNT, AUTOMATED 100 10^3/uL (150-450); RED BLOOD COUNT 3.93 10^6/uL (4.00-5.40); WHITE BLOOD COUNT 4.7 10^3/uL (4.0-10.0)
[2023-04-19 17:24] LABS: ALBUMIN 3.5 G/DL (3.2-5.2); ALKALINE PHOSPHATASE 86 U/L (46-116); ALT/SGPT 34 U/L (7.0-40); AST/SGOT 44 U/L (<34); BILIRUBIN,DIRECT 0.3 MG/DL (<0.4); BILIRUBIN,TOTAL 0.5 MG/DL (0.3-1.2); BLOOD UREA NITROGEN 17 MG/DL (9-23); CALCIUM LEVEL 8.6 MG/DL (8.3-10.6); CARBON DIOXIDE LEVEL 24 MMOL/L (20-31); CHLORIDE LEVEL 108 MMOL/L (98-107); CREATININE FOR GFR 0.84 MG/DL (0.55-1.30); GLOMERULAR FILTRATION RATE > 60.0 (>45); GLUCOSE, FASTING 93 MG/DL (74-106); POTASSIUM SERUM 4.2 MMOL/L (3.5-5.1); SODIUM LEVEL 140 MMOL/L (136-145); TOTAL PROTEIN 6.9 G/DL (5.7-8.2)
[2023-04-19 17:26] LABS: THYROID STIMULATING HORMONE 3.641 uIU/ML (0.55-4.78)
== END ==
LOC: M LAB REF 16:39
PROVIDERS: ATTEND Pediatrics
DX: K70.31 Alcoholic cirrhosis of liver with ascites (principal); Z79.899 Other long term (current) drug therapy

== ENCOUNTER 2023-12-04 14:57 | Emergency (ER) | payer MEDICARE, MEDICAID ==
[~2023-12-04] VITALS: Ht 160 cm; Wt 67.6 kg
[2023-12-04] MEDS: IBUPROFEN 800 MG TAB PO ONE (18:01)
[2023-12-04] MEDS ORDERED: CEFD1CAP9 PO (18:30)
[2023-12-04 18:48] VITALS: BP 142/67; TEMP 97.8; O2SAT 97
== END 2023-12-04 18:50 | disposition home or self-care (01) ==
LOC: M ED 14:57
DX: N30.00 Acute cystitis without hematuria (principal); Z87.19 Personal history of other diseases of the digestive system; K70.30 Alcoholic cirrhosis of liver without ascites; F17.200 Nicotine dependence, unspecified, uncomplicated

== ENCOUNTER 2023-12-18 06:19 | Emergency (ER) | payer MEDICARE, MEDICAID ==
[~2023-12-18 06:19] MED LIST changes: +CEFD1CAP9 PO
[2023-12-18 07:45] LABS: BASO % 0.7 % (0.0-1.0); EOS # 0.3 10^3/uL (0.0-0.5); EOS % 6.3 % (0.0-3.0); HEMATOCRIT 33.1 % (36.0-47.0); HEMOGLOBIN 10.6 g/dl (12.0-15.5); LYMPH # 1.1 10^3/uL (1.5-5.0); LYMPH % 24.9 % (24.0-44.0); MEAN CORPUSCULAR HEMOGLOBIN 28.5 pg (27.0-33.0); MONO # 0.4 10^3/uL (0.0-0.8); MONO % 8.1 % (2.0-8.0); NEUTROPHILS # 2.6 10^3/uL (1.5-8.5); NEUTROPHILS % 59.8 % (36.0-66.0); RED BLOOD COUNT 3.72 10^6/uL (4.00-5.40); WHITE BLOOD COUNT 4.3 10^3/uL (4.0-10.0)
[2023-12-18 07:51] LABS: PLATELET COUNT, AUTOMATED 91 10^3/uL (150-450)
[2023-12-18 08:08] LABS: LIPASE 30 U/L (12-53)
[2023-12-18 08:09] LABS: CPK CREATINE PHOSPHOKINASE 52 U/L (34-145)
[2023-12-18 08:10] LABS: ALBUMIN 3.5 G/DL (3.2-5.2); ALKALINE PHOSPHATASE 105 U/L (46-116); ALT/SGPT 29 U/L (7.0-40); AST/SGOT 28 U/L (<34); BILIRUBIN,DIRECT 0.5 MG/DL (<0.4); BILIRUBIN,TOTAL 1.2 MG/DL (0.3-1.2); BLOOD UREA NITROGEN 13 MG/DL (9-23); CALCIUM LEVEL 8.7 MG/DL (8.3-10.6); CARBON DIOXIDE LEVEL 23 MMOL/L (20-31); CHLORIDE LEVEL 109 MMOL/L (98-107); CK-MB VALUE MASS < 1.0 NG/ML (<3.6); CREATININE FOR GFR 0.79 MG/DL (0.55-1.30); GLOMERULAR FILTRATION RATE > 60.0 (>39); GLUCOSE, FASTING 95 MG/DL (74-106); MB/CK RELATIVE INDEX 1.92 (< OR =4); POTASSIUM SERUM 3.7 MMOL/L (3.5-5.1); SODIUM LEVEL 140 MMOL/L (136-145); TOTAL PROTEIN 6.5 G/DL (5.7-8.2)
[2023-12-18] MEDS: MORPHINE 2 MG/ML 1ML VIAL IV PRN (09:04)
[2023-12-18] MEDS ORDERED: CEFD1CAP9 PO (09:13)
[2023-12-18] MEDS ORDERED: HOME MED LIST COMPLETE! XX SCH (09:15)
[2023-12-18 09:24] LABS: CK-MB VALUE MASS < 1.0 NG/ML (<3.6)
[2023-12-18 09:26] LABS: CPK CREATINE PHOSPHOKINASE 51 U/L (34-145); MB/CK RELATIVE INDEX 1.96 (< OR =4)
[2023-12-18] MEDS ORDERED: HYDR-3713 PO (10:47)
[2023-12-18 11:07] VITALS: BP 189/78; TEMP 97.6; O2SAT 96
== END 2023-12-18 11:09 | disposition home or self-care (01) ==
LOC: EDBD 06:19 → M ED 06:19
DX: N39.0 Urinary tract infection, site not specified (principal); K80.20 Calculus of gallbladder without cholecystitis without obstruction; N20.0 Calculus of kidney; R93.7 Abnormal findings on diagnostic imaging of other parts of musculoskeletal system; K70.31 Alcoholic cirrhosis of liver with ascites; Z87.440 Personal history of urinary (tract) infections; F17.200 Nicotine dependence, unspecified, uncomplicated

== ENCOUNTER 2023-12-28 14:46 | Emergency (ER) | payer MEDICARE, MEDICAID ==
[~2023-12-28] VITALS: Ht 157.5 cm; Wt 65.6 kg
[~2023-12-28 14:46] MED LIST changes: +HYDR-3713 PO
[2023-12-28 18:27] LABS: BASO % 0.5 % (0.0-1.0); EOS # 0.4 10^3/uL (0.0-0.5); HEMATOCRIT 35.8 % (36.0-47.0); HEMOGLOBIN 11.2 g/dl (12.0-15.5); LYMPH # 1.3 10^3/uL (1.5-5.0); LYMPH % 22.1 % (24.0-44.0); MEAN CORPUSCULAR HEMOGLOBIN 28.2 pg (27.0-33.0); MEAN CORPUSCULAR HGB CONC 31.3 g/dl (32.0-36.5); MEAN CORPUSCULAR VOLUME 90.2 fl (80.0-96.0); MONO # 0.6 10^3/uL (0.0-0.8); NEUTROPHILS # 3.4 10^3/uL (1.5-8.5); PLATELET COUNT, AUTOMATED 113 10^3/uL (150-450); RED BLOOD COUNT 3.97 10^6/uL (4.00-5.40); WHITE BLOOD COUNT 5.7 10^3/uL (4.0-10.0)
[2023-12-28 18:55] LABS: LIPASE 42 U/L (12-53)
[2023-12-28 18:57] LABS: ALBUMIN 3.5 G/DL (3.2-5.2); ALKALINE PHOSPHATASE 129 U/L (46-116); ALT/SGPT 27 U/L (7.0-40); AST/SGOT 30 U/L (<34); BILIRUBIN,DIRECT 0.2 MG/DL (<0.4); BILIRUBIN,TOTAL 0.5 MG/DL (0.3-1.2); BLOOD UREA NITROGEN 12 MG/DL (9-23); CALCIUM LEVEL 9.1 MG/DL (8.3-10.6); CARBON DIOXIDE LEVEL 24 MMOL/L (20-31); CHLORIDE LEVEL 111 MMOL/L (98-107); CREATININE FOR GFR 0.81 MG/DL (0.55-1.30); GLOMERULAR FILTRATION RATE > 60.0 (>39); GLUCOSE, FASTING 94 MG/DL (74-106); POTASSIUM SERUM 4.4 MMOL/L (3.5-5.1); SODIUM LEVEL 142 MMOL/L (136-145); TOTAL PROTEIN 6.7 G/DL (5.7-8.2)
[2023-12-28 23:26] LABS: APPEARANCE, URINE HAZY (CLEAR); BACTERIA, URINE AUTO 1+ (NEGATIVE); BILIRUBIN, URINE AUTO NEGATIVE (NEGATIVE); BLOOD, URINE BLOOD NEGATIVE (NEGATIVE); COLOR, URINE YELLOW (YELLOW); GLUCOSE, URINE (UA) AUTO NEGATIVE (NEGATIVE); KETONE, URINE AUTO NEGATIVE (NEGATIVE); LEUKOCYTE ESTERASE, URINE AUTO 2+ (NEGATIVE); NITRITE, URINE AUTO NEGATIVE (NEGATIVE); PROTEIN, URINE AUTO NEGATIVE (NEGATIVE); RBC, URINE AUTO 3 /HPF (0-3); SPECIFIC GRAVITY URINE AUTO 1.014 (1.002-1.035); SQUAMOUS EPITHELIAL CELL UR AU 5 /HPF (0-6); UROBILINOGEN, URINE AUTO 0.2 mg/dL (0.0-2.0); WBC, URINE AUTO 64 /HPF (0-3)
[2023-12-29 02:11] VITALS: BP 176/76; TEMP 98.5; O2SAT 97
== END 2023-12-29 02:16 | disposition home or self-care (01) ==
LOC: M ED 14:46
DX: R10.9 Unspecified abdominal pain (principal); Z79.2 Long term (current) use of antibiotics; Z79.1 Long term (current) use of non-steroidal anti-inflammatories (NSAID)

== ENCOUNTER 2023-12-31 01:04 | Emergency (ER) | payer MEDICARE, MEDICAID ==
[2023-12-31] MEDS ORDERED: ASPI325T59 PO (12:42)
[2023-12-31] MEDS ORDERED: HOME MED LIST COMPLETE! XX SCH (12:45)
[2023-12-31 14:53] LABS: HEMATOCRIT 34.8 % (36.0-47.0); HEMOGLOBIN 11.2 g/dl (12.0-15.5); MEAN CORPUSCULAR HEMOGLOBIN 28.8 pg (27.0-33.0); MEAN CORPUSCULAR HGB CONC 32.2 g/dl (32.0-36.5); MEAN CORPUSCULAR VOLUME 89.5 fl (80.0-96.0); RED BLOOD COUNT 3.89 10^6/uL (4.00-5.40); WHITE BLOOD COUNT 5.6 10^3/uL (4.0-10.0)
[2023-12-31 14:54] LABS: PLATELET COUNT, AUTOMATED 99 10^3/uL (150-450)
[2023-12-31 19:59] LABS: BLOOD UREA NITROGEN 9 MG/DL (9-23); CALCIUM LEVEL 8.4 MG/DL (8.3-10.6); CARBON DIOXIDE LEVEL 22 MMOL/L (20-31); CHLORIDE LEVEL 114 MMOL/L (98-107); CPK CREATINE PHOSPHOKINASE 87 U/L (34-145); CREATININE FOR GFR 0.77 MG/DL (0.55-1.30); GLOMERULAR FILTRATION RATE > 60.0 (>39); GLUCOSE, FASTING 85 MG/DL (74-106); MB/CK RELATIVE INDEX 1.14 (< OR =4); POTASSIUM SERUM 4.4 MMOL/L (3.5-5.1); SODIUM LEVEL 143 MMOL/L (136-145)
[2023-12-31 20:05] LABS: BLOOD UREA NITROGEN 10 MG/DL (9-23); CALCIUM LEVEL 8.4 MG/DL (8.3-10.6); CARBON DIOXIDE LEVEL 23 MMOL/L (20-31); CHLORIDE LEVEL 114 MMOL/L (98-107); CK-MB VALUE MASS 1.9 NG/ML (<3.6); CREATININE FOR GFR 0.74 MG/DL (0.55-1.30); GLOMERULAR FILTRATION RATE > 60.0 (>39); GLUCOSE, FASTING 82 MG/DL (74-106); POTASSIUM SERUM 4.1 MMOL/L (3.5-5.1); SODIUM LEVEL 143 MMOL/L (136-145)
[2023-12-31 20:19] LABS: ETHYL ALCOHOL (ETHANOL) 0.095 % (0.000-0.010)
[2023-12-31 20:20] LABS: CPK CREATINE PHOSPHOKINASE 118 U/L (34-145); MB/CK RELATIVE INDEX 1.61 (< OR =4)
[2024-01-05 13:39] LABS: ALBUMIN 3.1 G/DL (3.2-5.2); BILIRUBIN,DIRECT 0.2 MG/DL (<0.4); BILIRUBIN,TOTAL 0.4 MG/DL (0.3-1.2); ETHYL ALCOHOL (ETHANOL) 0.092 % (0.000-0.010); MAGNESIUM LEVEL 1.8 MG/DL (1.8-2.4); THYROID STIMULATING HORMONE 3.601 uIU/ML (0.55-4.78)
== END 2023-12-31 15:00 | disposition home or self-care (01) ==
LOC: EDBD 01:04 → M ED 01:04
DX: S62.524A Nondisplaced fracture of distal phalanx of right thumb, initial encounter for closed fracture (principal); F10.10 Alcohol abuse, uncomplicated; Y92.9 Unspecified place or not applicable; Y93.9 Activity, unspecified; Y99.9 Unspecified external cause status; W19.XXXA Unspecified fall, initial encounter; I50.22 Chronic systolic (congestive) heart failure; E03.9 Hypothyroidism, unspecified; F17.210 Nicotine dependence, cigarettes, uncomplicated; Z79.1 Long term (current) use of non-steroidal anti-inflammatories (NSAID)

== ENCOUNTER 2024-07-02 14:32 | Emergency (ER) | payer MEDICARE, MEDICAID ==
[~2024-07-02] VITALS: Ht 157.5 cm; Wt 59.1 kg
[~2024-07-02 14:32] MED LIST changes: +ASPI325T59 PO
[2024-07-02] MEDS: METOCLOPRAMIDE INJ 10MG/2ML VIAL IV ONE (20:11)
[2024-07-02 20:17] LABS: BASO % 0.7 % (0.0-1.0); EOS # 0.2 10^3/uL (0.0-0.5); EOS % 3.7 % (0.0-3.0); HEMATOCRIT 27.7 % (36.0-47.0); HEMOGLOBIN 8.6 g/dl (12.0-15.5); LYMPH # 1.2 10^3/uL (1.5-5.0); LYMPH % 26.8 % (24.0-44.0); MEAN CORPUSCULAR HEMOGLOBIN 26.2 pg (27.0-33.0); MEAN CORPUSCULAR VOLUME 84.5 fl (80.0-96.0); MONO # 0.5 10^3/uL (0.0-0.8); MONO % 12.4 % (2.0-8.0); NEUTROPHILS # 2.5 10^3/uL (1.5-8.5); NEUTROPHILS % 56.2 % (36.0-66.0); RED BLOOD COUNT 3.28 10^6/uL (4.00-5.40); WHITE BLOOD COUNT 4.4 10^3/uL (4.0-10.0)
[2024-07-02 20:28] LABS: INR 1.18; PROTHROMBIN TIME 15.3 SECONDS (12.5-14.5)
[2024-07-02 20:35] LABS: LIPASE 29 U/L (12-53)
[2024-07-02 20:37] LABS: ALBUMIN 3.2 G/DL (3.2-5.2); ALKALINE PHOSPHATASE 91 U/L (35-104); ALT/SGPT 17 U/L (7.0-40); AST/SGOT 26 U/L (<34); BILIRUBIN,DIRECT 0.4 MG/DL (<0.4); BILIRUBIN,TOTAL 0.9 MG/DL (0.3-1.2); BLOOD UREA NITROGEN 12 MG/DL (9-23); CALCIUM LEVEL 8.5 MG/DL (8.3-10.6); CARBON DIOXIDE LEVEL 27 MMOL/L (20-31); CHLORIDE LEVEL 111 MMOL/L (98-107); CREATININE FOR GFR 0.77 MG/DL (0.55-1.30); GLOMERULAR FILTRATION RATE > 60.0 (>39); GLUCOSE, FASTING 96 MG/DL (74-106); POTASSIUM SERUM 4.2 MMOL/L (3.5-5.1); SODIUM LEVEL 143 MMOL/L (136-145); TOTAL PROTEIN 6.2 G/DL (5.7-8.2)
[2024-07-02 20:46] LABS: PLATELET COUNT, AUTOMATED 79 10^3/uL (150-450)
[2024-07-02 20:51] VITALS: BP 156/81; TEMP 98.3; O2SAT 96
== END 2024-07-02 20:55 | disposition left against medical advice (07) ==
LOC: M ED 14:32 → EDBD 14:32 → M ED 20:55
DX: R10.9 Unspecified abdominal pain (principal); Z53.9 Procedure and treatment not carried out, unspecified reason; K74.60 Unspecified cirrhosis of liver; F17.200 Nicotine dependence, unspecified, uncomplicated; Z79.82 Long term (current) use of aspirin; Z79.899 Other long term (current) drug therapy
CPT/HCPCS: 80048; 80076; 82140; 83690; 85025; 85049; 85055; 85610; 85730; 93041; 96374; 99284; J2765

== ENCOUNTER 2024-07-05 09:04 | Emergency (ER) | payer MEDICARE, MEDICAID ==
[~2024-07-05] VITALS: Ht 157.5 cm; Wt 64.3 kg
[2024-07-05] MEDS ORDERED: FURO40TA2 (09:26)
[2024-07-05] MEDS ORDERED: SPIR50TA4 (09:26)
[2024-07-05] MEDS ORDERED: PARACENTESIS (10:17)
[2024-07-05 11:15] VITALS: BP 139/75; TEMP 98.8; O2SAT 97
== END 2024-07-05 11:37 | disposition home or self-care (01) ==
LOC: M ED 09:04 → EDBD 09:04 → M ED 11:37
DX: K70.31 Alcoholic cirrhosis of liver with ascites (principal); E11.9 Type 2 diabetes mellitus without complications; Z79.82 Long term (current) use of aspirin

== ENCOUNTER 2024-08-16 11:46 | Observation (INO) | payer MEDICARE, MEDICAID ==
[~2024-08-16] VITALS: Ht 157.5 cm; Wt 59.1 kg
[~2024-08-16 11:46] MED LIST changes: +FURO40TA2; +PARACENTESIS; +SPIR50TA4
[2024-08-16 16:59] LABS: BASO % 0.2 % (0.0-1.0); EOS # 0.2 10^3/uL (0.0-0.5); EOS % 2.2 % (0.0-3.0); HEMATOCRIT 35.9 % (36.0-47.0); HEMOGLOBIN 10.6 g/dl (12.0-15.5); LYMPH # 1.2 10^3/uL (1.5-5.0); LYMPH % 13.4 % (24.0-44.0); MEAN CORPUSCULAR HEMOGLOBIN 25.8 pg (27.0-33.0); MEAN CORPUSCULAR HGB CONC 29.5 g/dl (32.0-36.5); MEAN CORPUSCULAR VOLUME 87.3 fl (80.0-96.0); MONO # 0.6 10^3/uL (0.0-0.8); MONO % 7.3 % (2.0-8.0); NEUTROPHILS # 6.8 10^3/uL (1.5-8.5); NEUTROPHILS % 76.7 % (36.0-66.0); PLATELET COUNT, AUTOMATED 117 10^3/uL (150-450); RED BLOOD COUNT 4.11 10^6/uL (4.00-5.40); WHITE BLOOD COUNT 8.8 10^3/uL (4.0-10.0)
[2024-08-16 17:14] LABS: INR 1.01; PARTIAL THROMBOPLASTIN TIME 25.6 SECONDS (24.8-34.2); PROTHROMBIN TIME 13.6 SECONDS (12.5-14.5)
[2024-08-16 17:23] LABS: ALBUMIN 3.3 G/DL (3.2-5.2); ALKALINE PHOSPHATASE 86 U/L (35-104); ALT/SGPT 17 U/L (7.0-40); AST/SGOT 18 U/L (<34); BILIRUBIN,DIRECT 0.5 MG/DL (<0.4); BILIRUBIN,TOTAL 1.1 MG/DL (0.3-1.2); BLOOD UREA NITROGEN 10 MG/DL (9-23); CALCIUM LEVEL 8.3 MG/DL (8.3-10.6); CARBON DIOXIDE LEVEL 21 MMOL/L (20-31); CHLORIDE LEVEL 111 MMOL/L (98-107); CREATININE FOR GFR 0.85 MG/DL (0.55-1.30); GLOMERULAR FILTRATION RATE > 60.0 (>39); GLUCOSE, FASTING 99 MG/DL (74-106); POTASSIUM SERUM 3.4 MMOL/L (3.5-5.1); SODIUM LEVEL 142 MMOL/L (136-145); TOTAL PROTEIN 6.7 G/DL (5.7-8.2)
[2024-08-16 18:36] LABS: APPEARANCE, URINE CLOUDY (CLEAR); BACTERIA, URINE AUTO NEGATIVE (NEGATIVE); BILIRUBIN, URINE AUTO 1+ (NEGATIVE); BLOOD, URINE BLOOD 1+ (NEGATIVE); COLOR, URINE AMBER (YELLOW); GLUCOSE, URINE (UA) AUTO NEGATIVE (NEGATIVE); KETONE, URINE AUTO TRACE mg/dL (NEGATIVE); LEUKOCYTE ESTERASE, URINE AUTO NEGATIVE (NEGATIVE); MUCUS, URINE LARGE (NEGATIVE); NITRITE, URINE AUTO NEGATIVE (NEGATIVE); PROTEIN, URINE AUTO 2+ mg/dL (NEGATIVE); RBC, URINE AUTO 19 /HPF (0-3); SQUAMOUS EPITHELIAL CELL UR AU 15 /HPF (0-6); WBC, URINE AUTO 3 /HPF (0-3)
[2024-08-16 19:29] LABS: ETHYL ALCOHOL (ETHANOL) < 0.003 % (0.000-0.010)
[2024-08-16] MEDS ORDERED: HOME MED LIST COMPLETE! XX SCH (20:40)
[2024-08-16] MEDS: cefTRIAXone SOD 2 GM in DEXTROSE 5% (D5W) ADV/MINI-BAG 50 ML IV ONE (21:55)
[2024-08-16] MEDS: LACTULOSE 20GM/30ML SYRUP UDC PO SCH (21:55)
[2024-08-16] MEDS: rifAXIMin 550 MG TAB (XIFAXAN) PO SCH (21:55)
[2024-08-17 04:00] VITALS: BP 140/80; TEMP 98.8; O2SAT 93
[2024-08-17] MEDS: POTASSIUM CHLORIDE 10MEQ SR TABLET PO ONE (08:45)
[2024-08-17] MEDS: THIAMINE 100 MG TAB PO SCH (08:46)
[2024-08-17] MEDS: FOLIC ACID 1MG TAB PO SCH (08:46)
[2024-08-17] MEDS: MULTIVITAMINS/MINERALS THERAP 1 TAB PO SCH (08:46)
[2024-08-17] MEDS: HEPARIN SOD (PORCINE) 5000UNITS/ML 1ML VIAL/SYRINGE SC SCH (08:46)
[2024-08-17 09:15] LABS: HEMOGLOBIN A1c 4.6 % (4.0-6.0)
[2024-08-17 12:00] VITALS: BP 126/78; TEMP 97.6; O2SAT 95
[2024-08-17 14:59] LABS: APPEARANCE, BODY FLUID CLEAR (CLEAR); ASCITES FL COLOR YELLOW (COLORLESS); SOURCE, BODY FLUID ASCITES
[2024-08-17 15:18] LABS: SOURCE, BODY FLUID GLUCOSE ASCITES
[2024-08-17] MEDS ORDERED: THIA100TA PO (15:48)
[2024-08-17] MEDS ORDERED: SPIR50TA4 PO (15:48)
[2024-08-17] MEDS ORDERED: CIPR-249 PO (15:48)
[2024-08-17] MEDS ORDERED: FURO40TA2 PO (15:48)
[2024-08-17 16:02] LABS: SOURCE, BODY FLUID TOT PROTEIN ASCITES; TOTAL PROTEIN, BODY FLUID < 2.0 G/DL (NOT ESTABLISHED)
[2024-08-17 16:13] LABS: SOURCE, BODY FLUID ALBUMIN ASCITES
[2024-08-17 20:26] VITALS: BP 129/64; TEMP 98.8; O2SAT 96
[2024-08-18 03:42] VITALS: BP 125/67; TEMP 99; O2SAT 96
[2024-08-18 06:15] LABS: BASO % 0.4 % (0.0-1.0); EOS # 0.2 10^3/uL (0.0-0.5); EOS % 3.4 % (0.0-3.0); HEMATOCRIT 29.1 % (36.0-47.0); HEMOGLOBIN 8.9 g/dl (12.0-15.5); LYMPH # 1.3 10^3/uL (1.5-5.0); LYMPH % 19.2 % (24.0-44.0); MEAN CORPUSCULAR HEMOGLOBIN 25.9 pg (27.0-33.0); MEAN CORPUSCULAR HGB CONC 30.6 g/dl (32.0-36.5); MEAN CORPUSCULAR VOLUME 84.6 fl (80.0-96.0); MONO # 0.6 10^3/uL (0.0-0.8); NEUTROPHILS # 4.8 10^3/uL (1.5-8.5); NEUTROPHILS % 68.9 % (36.0-66.0); PLATELET COUNT, AUTOMATED 116 10^3/uL (150-450); RED BLOOD COUNT 3.44 10^6/uL (4.00-5.40)
[2024-08-18 06:38] LABS: BLOOD UREA NITROGEN 10 MG/DL (9-23); CALCIUM LEVEL 7.7 MG/DL (8.3-10.6); CARBON DIOXIDE LEVEL 22 MMOL/L (20-31); CHLORIDE LEVEL 111 MMOL/L (98-107); CREATININE FOR GFR 0.83 MG/DL (0.55-1.30); GLOMERULAR FILTRATION RATE > 60.0 (>39); GLUCOSE, FASTING 101 MG/DL (74-106); MAGNESIUM LEVEL 1.9 MG/DL (1.8-2.4); POTASSIUM SERUM 3.6 MMOL/L (3.5-5.1); SODIUM LEVEL 142 MMOL/L (136-145)
[2024-08-18 09:25] VITALS: BP 120/68; TEMP 98.4; O2SAT 97
[2024-08-18 12:30] VITALS: BP 139/67; TEMP 98.4; O2SAT 98
== END 2024-08-18 14:40 | disposition home or self-care (01) ==
LOC: EDBD 11:46 → M ED 11:46 → M ED INP 20:38 → M MS5PR 08-17 00:15
PROVIDERS: ADMIT Student in an Organized Health Care Education/Training Program; ATTEND Internal Medicine
DX: K74.60 Unspecified cirrhosis of liver (principal); R18.8 Other ascites; Z86.69 Personal history of other diseases of the nervous system and sense organs; D64.9 Anemia, unspecified; D69.6 Thrombocytopenia, unspecified; F10.20 Alcohol dependence, uncomplicated; Z79.2 Long term (current) use of antibiotics; Z79.899 Other long term (current) drug therapy
CPT/HCPCS: 36415; 49083; 51701; 74021; 76705; 80048; 80076; 81001; 82042; 82077; 82140; 82945; 83036; 83605; 83735; 83880; 84157; 85025; 85610; 85730; 87070; 87086; 87102; 87116; 87205; 87206; 88108; 88305; 88313; 89051; 96365; 96372; 97161; 97530; 99285; G0378; J0696

== ENCOUNTER 2024-09-09 15:15 | Emergency (ER) | payer MEDICARE, MEDICAID ==
[~2024-09-09] VITALS: Ht 157.5 cm; Wt 63.9 kg
[~2024-09-09 15:15] MED LIST changes: +CIPR-249 PO
[2024-09-09] MEDS: IBUPROFEN 600MG TAB PO ONE (18:41)
[2024-09-09 19:24] VITALS: BP 173/78; TEMP 99.3; O2SAT 96
== END 2024-09-09 19:34 | disposition home or self-care (01) ==
LOC: M ED 15:15 → EDBD 15:15 → M ED 19:34
DX: S93.401A Sprain of unspecified ligament of right ankle, initial encounter (principal); Y92.019 Unspecified place in single-family (private) house as the place of occurrence of the external cause; Y93.9 Activity, unspecified; Y99.9 Unspecified external cause status; E11.9 Type 2 diabetes mellitus without complications

== ENCOUNTER 2024-09-20 09:41 | Emergency (ER) | payer MEDICARE, MEDICAID ==
[~2024-09-20] VITALS: Ht 157.5 cm; Wt 64.7 kg
[2024-09-20] MEDS ORDERED: CIPR500T39 PO (09:50)
[2024-09-20 10:12] LABS: BASO % 0.9 % (0.0-1.0); EOS # 0.2 10^3/uL (0.0-0.5); HEMATOCRIT 35.5 % (36.0-47.0); HEMOGLOBIN 10.4 g/dl (12.0-15.5); LYMPH % 23.6 % (24.0-44.0); MEAN CORPUSCULAR HEMOGLOBIN 25.2 pg (27.0-33.0); MEAN CORPUSCULAR HGB CONC 29.3 g/dl (32.0-36.5); MEAN CORPUSCULAR VOLUME 86.2 fl (80.0-96.0); MONO # 0.4 10^3/uL (0.0-0.8); MONO % 9.1 % (2.0-8.0); NEUTROPHILS # 2.7 10^3/uL (1.5-8.5); NEUTROPHILS % 61.2 % (36.0-66.0); PLATELET COUNT, AUTOMATED 113 10^3/uL (150-450); RED BLOOD COUNT 4.12 10^6/uL (4.00-5.40); WHITE BLOOD COUNT 4.4 10^3/uL (4.0-10.0)
[2024-09-20 10:33] LABS: ALBUMIN 3.5 G/DL (3.2-5.2); BILIRUBIN,DIRECT 0.4 MG/DL (<0.4); BILIRUBIN,TOTAL 0.8 MG/DL (0.3-1.2); CALCIUM LEVEL 8.5 MG/DL (8.3-10.6); CREATININE FOR GFR 0.76 MG/DL (0.55-1.30); GLOMERULAR FILTRATION RATE 84.2 (>39); POTASSIUM SERUM 3.8 MMOL/L (3.5-5.1)
[2024-09-20 12:51] LABS: INR 1.09; PROTHROMBIN TIME 14.4 SECONDS (12.5-14.5)
[2024-09-20 14:52] VITALS: O2SAT 97
[2024-09-20 15:00] VITALS: BP 158/68; TEMP 97.1
== END 2024-09-20 15:11 | disposition home or self-care (01) ==
LOC: EDBD 09:41 → M ED 09:41
DX: R18.8 Other ascites (principal); E11.9 Type 2 diabetes mellitus without complications; K74.60 Unspecified cirrhosis of liver; F10.20 Alcohol dependence, uncomplicated; F17.200 Nicotine dependence, unspecified, uncomplicated

== ENCOUNTER 2024-09-25 13:52 | Observation (INO) | payer MEDICARE, MEDICAID ==
[~2024-09-25] VITALS: Ht 157.5 cm; Wt 56.1 kg
[~2024-09-25 13:52] MED LIST changes: +CIPR500T39 PO
[2024-09-25] MEDS: ONDANSETRON 4MG 2ML VIAL IV ONE (14:25)
[2024-09-25 15:09] LABS: KETONE, URINE AUTO RFX TRACE mg/dL (NEGATIVE); LEUKOCYTE ESTERASE UR AUTO RFX NEGATIVE (NEGATIVE); MUCUS, URINE RFX LARGE (NEGATIVE); NITRITE, URINE AUTO RFX NEGATIVE (NEGATIVE); RBC, URINE AUTO RFX 2 /HPF (0-3); SQUAM EPITHELIAL CELL UR AURFX 4 /HPF (0-6); WBC, URINE AUTO RFX 0 /HPF (0-3)
[2024-09-25 15:12] LABS: BASO # 0.1 10^3/uL (0.0-0.2); BASO % 0.9 % (0.0-1.0); EOS # 0.2 10^3/uL (0.0-0.5); EOS % 4.3 % (0.0-3.0); HEMATOCRIT 34.3 % (36.0-47.0); HEMOGLOBIN 10.2 g/dl (12.0-15.5); LYMPH # 1.4 10^3/uL (1.5-5.0); LYMPH % 25.4 % (24.0-44.0); MEAN CORPUSCULAR HEMOGLOBIN 25.6 pg (27.0-33.0); MEAN CORPUSCULAR HGB CONC 29.7 g/dl (32.0-36.5); MONO # 0.6 10^3/uL (0.0-0.8); MONO % 10.8 % (2.0-8.0); NEUTROPHILS # 3.1 10^3/uL (1.5-8.5); NEUTROPHILS % 58.4 % (36.0-66.0); PLATELET COUNT, AUTOMATED 112 10^3/uL (150-450); RED BLOOD COUNT 3.99 10^6/uL (4.00-5.40); WHITE BLOOD COUNT 5.4 10^3/uL (4.0-10.0)
[2024-09-25 15:21] LABS: INR 0.98; PROTHROMBIN TIME 13.3 SECONDS (12.5-14.5)
[2024-09-25 15:32] LABS: ALBUMIN 3.2 G/DL (3.2-5.2); BILIRUBIN,DIRECT 0.3 MG/DL (<0.4); BILIRUBIN,TOTAL 0.6 MG/DL (0.3-1.2); CALCIUM LEVEL 8.2 MG/DL (8.3-10.6); CREATININE FOR GFR 0.79 MG/DL (0.55-1.30); GLOMERULAR FILTRATION RATE 80.4 (>39); POTASSIUM SERUM 3.5 MMOL/L (3.5-5.1); TOTAL PROTEIN 6.6 G/DL (5.7-8.2)
[2024-09-25 18:39] LABS: APPEARANCE, BODY FLUID CLEAR (CLEAR); ASCITES FL COLOR PALE YELLOW (COLORLESS); SOURCE, BODY FLUID ASCITES
[2024-09-25 18:44] LABS: SOURCE, BODY FLUID ALBUMIN ASCITES
[2024-09-25 18:49] LABS: SOURCE, BODY FLUID GLUCOSE ASCITES
[2024-09-25 18:50] LABS: SOURCE, BODY FLUID TOT PROTEIN ASCITES; TOTAL PROTEIN, BODY FLUID < 2.0 G/DL (NOT ESTABLISHED)
[2024-09-25] MEDS: PIPERACILLIN/TAZOBACTAM SOD 3.375 GM in DEXTROSE 5% (D5W) ADV/MINI-BAG 50 ML IV ONE (19:15)
[2024-09-25] MEDS ORDERED: MOM 30ML SUSPENSION UDC PO PRN (19:50)
[2024-09-25] MEDS ORDERED: LORazepam 2 MG TAB PO PRN (20:15)
[2024-09-25] MEDS ORDERED: MORPHINE 2 MG/ML 1ML VIAL IV PRN (20:45)
[2024-09-25 21:21] VITALS: BP 142/63; TEMP 97.3; O2SAT 93
[2024-09-25] MEDS ORDERED: HOME MED LIST COMPLETE! XX SCH (21:35)
[2024-09-25] MEDS: THIAMINE 100 MG TAB PO SCH (21:39)
[2024-09-25] MEDS: DOCUSATE SODIUM 100MG CAPSULE PO SCH (21:39)
[2024-09-25] MEDS ORDERED: ACET-897 PO (21:42)
[2024-09-25 22:00] VITALS: BP 142/63
[2024-09-26 04:33] VITALS: BP 122/70; TEMP 97.5; O2SAT 94
[2024-09-26 05:53] LABS: HEMATOCRIT 27.5 % (36.0-47.0); HEMOGLOBIN 8.5 g/dl (12.0-15.5); MEAN CORPUSCULAR HEMOGLOBIN 25.9 pg (27.0-33.0); MEAN CORPUSCULAR HGB CONC 30.9 g/dl (32.0-36.5); MEAN CORPUSCULAR VOLUME 83.8 fl (80.0-96.0); RED BLOOD COUNT 3.28 10^6/uL (4.00-5.40); WHITE BLOOD COUNT 3.8 10^3/uL (4.0-10.0)
[2024-09-26 06:03] LABS: PLATELET COUNT, AUTOMATED 89 10^3/uL (150-450)
[2024-09-26 06:28] LABS: ALBUMIN 2.7 G/DL (3.2-5.2); BILIRUBIN,TOTAL 0.7 MG/DL (0.3-1.2); CALCIUM LEVEL 7.9 MG/DL (8.3-10.6); CREATININE FOR GFR 0.75 MG/DL (0.55-1.30); GLOMERULAR FILTRATION RATE 85.6 (>39); POTASSIUM SERUM 3.4 MMOL/L (3.5-5.1); TOTAL PROTEIN 5.5 G/DL (5.7-8.2)
[2024-09-26] MEDS: PIPERACILLIN/TAZOBACTAM SOD 4.5 GM in DEXTROSE 5% (D5W) ADV/MINI-BAG 50 ML IV SCH (08:16)
[2024-09-26] MEDS: FUROSEMIDE 40 MG TAB PO SCH (08:17)
[2024-09-26] MEDS: ENOXAPARIN 40MG/0.4ML SYRINGE (J1650 PER 10MG) SC SCH (08:17)
[2024-09-26] MEDS: MULTIVITAMINS/MINERALS THERAP 1 TAB PO SCH (08:17)
[2024-09-26] MEDS: FOLIC ACID 1MG TAB PO SCH (08:17)
[2024-09-26] MEDS: POTASSIUM CHLORIDE 10MEQ SR TABLET PO ONE (08:37)
[2024-09-26 09:00] VITALS: BP 122/70
[2024-09-26 12:00] VITALS: BP 121/68; TEMP 97.5; O2SAT 94
[2025-09-24] MEDS ORDERED: PIPERACILLIN/TAZOBACTAM SOD 4.5 GM in DEXTROSE 5% (D5W) ADV/MINI-BAG 50 ML IV SCH (03:00)
== END 2024-09-26 16:00 | disposition home health service (06) ==
LOC: M ED 13:52 → EDBD 13:52 → M ED INP 13:53 → M MS5PR 21:06
PROVIDERS: ADMIT Family Medicine; ATTEND Internal Medicine
DX: K70.31 Alcoholic cirrhosis of liver with ascites (principal); E51.2 Wernicke's encephalopathy; F10.21 Alcohol dependence, in remission; E11.9 Type 2 diabetes mellitus without complications; E87.6 Hypokalemia; Z79.2 Long term (current) use of antibiotics; Z79.899 Other long term (current) drug therapy
CPT/HCPCS: 36415; 49083; 74176; 80048; 80053; 80076; 81001; 82042; 82140; 82945; 83690; 84157; 85025; 85027; 85049; 85055; 85610; 87040; 87070; 87075; 87205; 89051; 93041; 96365; 96366; 96372; 97161; 99285; G0378; J1650; J2543

== ENCOUNTER 2024-10-04 11:36 | Emergency (ER) | payer MEDICARE, MEDICAID ==
[~2024-10-04] VITALS: Ht 165.1 cm; Wt 64.5 kg
[~2024-10-04 11:36] MED LIST changes: +ACET-897 PO
[2024-10-04 13:01] LABS: BASO % 0.7 % (0.0-1.0); EOS # 0.4 10^3/uL (0.0-0.5); EOS % 5.8 % (0.0-3.0); HEMATOCRIT 31.8 % (36.0-47.0); HEMOGLOBIN 9.5 g/dl (12.0-15.5); LYMPH # 1.2 10^3/uL (1.5-5.0); LYMPH % 20.3 % (24.0-44.0); MEAN CORPUSCULAR HEMOGLOBIN 25.4 pg (27.0-33.0); MEAN CORPUSCULAR HGB CONC 29.9 g/dl (32.0-36.5); MONO # 0.6 10^3/uL (0.0-0.8); MONO % 9.5 % (2.0-8.0); NEUTROPHILS # 3.8 10^3/uL (1.5-8.5); NEUTROPHILS % 63.4 % (36.0-66.0); PLATELET COUNT, AUTOMATED 143 10^3/uL (150-450); RED BLOOD COUNT 3.74 10^6/uL (4.00-5.40)
[2024-10-04 13:34] LABS: ALBUMIN 3.3 G/DL (3.2-5.2); BILIRUBIN,DIRECT 0.2 MG/DL (<0.4); BILIRUBIN,TOTAL 0.4 MG/DL (0.3-1.2); CALCIUM LEVEL 8.3 MG/DL (8.3-10.6); CREATININE FOR GFR 0.89 MG/DL (0.55-1.30); GLOMERULAR FILTRATION RATE 69.7 (>39); POTASSIUM SERUM 3.5 MMOL/L (3.5-5.1); TOTAL PROTEIN 6.7 G/DL (5.7-8.2)
[2024-10-04] MEDS: KETOROLAC 30 MG/ML 1ML VIAL IV ONE (15:40)
[2024-10-04] MEDS ORDERED: HOME MED LIST COMPLETE! XX SCH (18:05)
[2024-10-04 18:34] LABS: APPEARANCE, BODY FLUID CLEAR (CLEAR); PERITONEAL FL COLOR PALE YELLOW (COLORLESS); SOURCE, BODY FLUID PERITONEAL; SOURCE, BODY FLUID ALBUMIN PERITONEAL
[2024-10-04 18:39] LABS: SOURCE, BODY FLUID GLUCOSE PERITONEAL
[2024-10-04 18:40] LABS: SOURCE, BODY FLUID TOT PROTEIN PERITONEAL; TOTAL PROTEIN, BODY FLUID < 2.0 G/DL (NOT ESTABLISHED)
[2024-10-04 19:33] VITALS: BP 132/63; TEMP 98; O2SAT 98
== END 2024-10-04 20:12 | disposition home or self-care (01) ==
LOC: M ED 11:36 → EDBD 11:36 → M ED 20:12
DX: K70.31 Alcoholic cirrhosis of liver with ascites (principal); E11.9 Type 2 diabetes mellitus without complications; E51.2 Wernicke's encephalopathy; F17.210 Nicotine dependence, cigarettes, uncomplicated
CPT/HCPCS: 49083; 80048; 80076; 82042; 82945; 83690; 84157; 85025; 89051; 96374; 99284; J1885

== ENCOUNTER 2024-10-12 15:08 | Emergency (ER) | payer MEDICARE, MEDICAID ==
[~2024-10-12] VITALS: Ht 160 cm; Wt 64.6 kg
[2024-10-12 16:58] LABS: BASO # 0.1 10^3/uL (0.0-0.2); EOS # 0.3 10^3/uL (0.0-0.5); EOS % 5.8 % (0.0-3.0); HEMATOCRIT 29.7 % (36.0-47.0); LYMPH # 1.2 10^3/uL (1.5-5.0); MEAN CORPUSCULAR HEMOGLOBIN 25.6 pg (27.0-33.0); MEAN CORPUSCULAR HGB CONC 30.3 g/dl (32.0-36.5); MEAN CORPUSCULAR VOLUME 84.4 fl (80.0-96.0); MONO # 0.4 10^3/uL (0.0-0.8); MONO % 8.7 % (2.0-8.0); NEUTROPHILS # 2.9 10^3/uL (1.5-8.5); NEUTROPHILS % 59.3 % (36.0-66.0); PLATELET COUNT, AUTOMATED 108 10^3/uL (150-450); RED BLOOD COUNT 3.52 10^6/uL (4.00-5.40)
[2024-10-12 17:10] LABS: INR 1.07; PARTIAL THROMBOPLASTIN TIME 25.6 SECONDS (24.8-34.2); PROTHROMBIN TIME 14.2 SECONDS (12.5-14.5)
[2024-10-12 17:18] LABS: ALBUMIN 3.1 G/DL (3.2-5.2); BILIRUBIN,DIRECT 0.3 MG/DL (<0.4); BILIRUBIN,TOTAL 0.6 MG/DL (0.3-1.2); CALCIUM LEVEL 8.3 MG/DL (8.3-10.6); CREATININE FOR GFR 0.84 MG/DL (0.55-1.30); GLOMERULAR FILTRATION RATE 74.7 (>39); POTASSIUM SERUM 3.4 MMOL/L (3.5-5.1); TOTAL PROTEIN 6.2 G/DL (5.7-8.2)
[2024-10-12 18:45] VITALS: BP 150/72; TEMP 97.7; O2SAT 98
== END 2024-10-12 19:05 | disposition home or self-care (01) ==
LOC: M ED 15:08 → EDBD 15:08 → M ED 19:05
DX: R18.8 Other ascites (principal); Z79.899 Other long term (current) drug therapy

== ENCOUNTER 2024-10-18 12:29 | Emergency (ER) | payer MEDICARE, MEDICAID ==
[~2024-10-18] VITALS: Ht 160 cm; Wt 65.2 kg
[2024-10-18 13:46] LABS: EOS # 0.3 10^3/uL (0.0-0.5); EOS % 7.8 % (0.0-3.0); HEMATOCRIT 30.4 % (36.0-47.0); HEMOGLOBIN 9.2 g/dl (12.0-15.5); LYMPH # 1.2 10^3/uL (1.5-5.0); LYMPH % 28.9 % (24.0-44.0); MEAN CORPUSCULAR HEMOGLOBIN 25.8 pg (27.0-33.0); MEAN CORPUSCULAR HGB CONC 30.3 g/dl (32.0-36.5); MEAN CORPUSCULAR VOLUME 85.2 fl (80.0-96.0); MONO # 0.4 10^3/uL (0.0-0.8); MONO % 10.8 % (2.0-8.0); NEUTROPHILS # 2.1 10^3/uL (1.5-8.5); RED BLOOD COUNT 3.57 10^6/uL (4.00-5.40); WHITE BLOOD COUNT 4.1 10^3/uL (4.0-10.0)
[2024-10-18 13:49] LABS: PLATELET COUNT, AUTOMATED 98 10^3/uL (150-450)
[2024-10-18 14:10] LABS: ALBUMIN 3.3 G/DL (3.2-5.2); BILIRUBIN,DIRECT 0.3 MG/DL (<0.4); BILIRUBIN,TOTAL 0.7 MG/DL (0.3-1.2); CALCIUM LEVEL 8.3 MG/DL (8.3-10.6); CREATININE FOR GFR 0.86 MG/DL (0.55-1.30); GLOMERULAR FILTRATION RATE 72.6 (>39); POTASSIUM SERUM 3.5 MMOL/L (3.5-5.1); TOTAL PROTEIN 6.4 G/DL (5.7-8.2)
[2024-10-18 17:29] VITALS: O2SAT 92
[2024-10-18 17:31] VITALS: BP 163/73
[2024-10-18 18:02] VITALS: TEMP 97.1
== END 2024-10-18 18:09 | disposition home or self-care (01) ==
LOC: EDBD 12:29 → M ED 12:29
DX: R18.8 Other ascites (principal); K74.60 Unspecified cirrhosis of liver; Z79.899 Other long term (current) drug therapy

== ENCOUNTER 2024-10-21 15:51 | Inpatient (IN) | payer MEDICARE, MEDICAID ==
[~2024-10-21] VITALS: Ht 160 cm; Wt 61.0 kg
[2024-10-21] MEDS: LIDOCAINE 2% 5ML JELLY UROJET TOP ONE (18:40)
[2024-10-21 19:19] LABS: BASO % 0.7 % (0.0-1.0); EOS # 0.2 10^3/uL (0.0-0.5); EOS % 5.2 % (0.0-3.0); HEMATOCRIT 26.5 % (36.0-47.0); HEMOGLOBIN 8.1 g/dl (12.0-15.5); LYMPH # 0.8 10^3/uL (1.5-5.0); LYMPH % 19.1 % (24.0-44.0); MEAN CORPUSCULAR HGB CONC 30.6 g/dl (32.0-36.5); MEAN CORPUSCULAR VOLUME 84.9 fl (80.0-96.0); MONO # 0.6 10^3/uL (0.0-0.8); MONO % 13.2 % (2.0-8.0); NEUTROPHILS # 2.7 10^3/uL (1.5-8.5); NEUTROPHILS % 61.6 % (36.0-66.0); RED BLOOD COUNT 3.12 10^6/uL (4.00-5.40); WHITE BLOOD COUNT 4.4 10^3/uL (4.0-10.0)
[2024-10-21 19:20] LABS: PLATELET COUNT, AUTOMATED 82 10^3/uL (150-450)
[2024-10-21 19:40] LABS: OSMOLALITY SERUM 297 MOSM/KG (280-301)
[2024-10-21 19:42] LABS: ETHYL ALCOHOL (ETHANOL) 0.003 % (0.000-0.010)
[2024-10-21 19:43] LABS: CK-MB VALUE MASS < 1.0 NG/ML (<3.6)
[2024-10-21 19:44] LABS: ALKALINE PHOSPHATASE 94 U/L (35-104); ALT/SGPT 16 U/L (7.0-40); AST/SGOT 27 U/L (<34); BILIRUBIN,DIRECT 0.4 MG/DL (<0.4); BILIRUBIN,TOTAL 0.8 MG/DL (0.3-1.2); BLOOD UREA NITROGEN 12 MG/DL (9-23); CARBON DIOXIDE LEVEL 22 MMOL/L (20-31); CHLORIDE LEVEL 113 MMOL/L (98-107); CREATININE FOR GFR 1.14 MG/DL (0.55-1.30); GLOMERULAR FILTRATION RATE 51.8 (>39); GLUCOSE, FASTING 91 MG/DL (74-106); POTASSIUM SERUM 3.9 MMOL/L (3.5-5.1); SODIUM LEVEL 143 MMOL/L (136-145); TOTAL PROTEIN 5.9 G/DL (5.7-8.2)
[2024-10-21 19:46] LABS: FREE T4 1.04 NG/DL (0.89-1.76); THYROID STIMULATING HORMONE 5.257 uIU/ML (0.55-4.78)
[2024-10-21 19:46] LABS: KETONE, URINE AUTO RFX NEGATIVE (NEGATIVE); LEUKOCYTE ESTERASE UR AUTO RFX NEGATIVE (NEGATIVE); MUCUS, URINE RFX SMALL (NEGATIVE); NITRITE, URINE AUTO RFX NEGATIVE (NEGATIVE); RBC, URINE AUTO RFX 2 /HPF (0-3); SQUAM EPITHELIAL CELL UR AURFX 1 /HPF (0-6); WBC, URINE AUTO RFX 2 /HPF (0-3)
[2024-10-21 19:49] LABS: CPK CREATINE PHOSPHOKINASE 56 U/L (34-145); MB/CK RELATIVE INDEX 1.78 (< OR =4)
[2024-10-21 20:56] LABS: CK-MB VALUE MASS < 1.0 NG/ML (<3.6)
[2024-10-21 20:57] LABS: CPK CREATINE PHOSPHOKINASE 46 U/L (34-145); MB/CK RELATIVE INDEX 2.17 (< OR =4)
[2024-10-21] MEDS ORDERED: ASPI81TA26 PO (21:43)
[2024-10-21] MEDS ORDERED: HOME MED LIST COMPLETE! XX SCH (21:45)
[2024-10-22] VITALS (10 sets, daily range): BP systolic 109–154; BP diastolic 46–68; TEMP 97–98.8; O2SAT 92–99
[2024-10-22] MEDS ORDERED: LORazepam 2 MG TAB PO PRN (01:00)
[2024-10-22 07:50] LABS: HEMATOCRIT 27.6 % (36.0-47.0); HEMOGLOBIN 8.3 g/dl (12.0-15.5); MEAN CORPUSCULAR HEMOGLOBIN 25.5 pg (27.0-33.0); MEAN CORPUSCULAR HGB CONC 30.1 g/dl (32.0-36.5); MEAN CORPUSCULAR VOLUME 84.9 fl (80.0-96.0); RED BLOOD COUNT 3.25 10^6/uL (4.00-5.40); WHITE BLOOD COUNT 4.5 10^3/uL (4.0-10.0)
[2024-10-22 07:51] LABS: PLATELET COUNT, AUTOMATED 77 10^3/uL (150-450)
[2024-10-22 08:20] LABS: CALCIUM LEVEL 7.9 MG/DL (8.3-10.6); CREATININE FOR GFR 1.47 MG/DL (0.55-1.30); GLOMERULAR FILTRATION RATE 38.2 (>39)
[2024-10-22] MEDS: THIAMINE 100 MG TAB PO SCH (08:23)
[2024-10-22] MEDS: SPIRONOLACTONE 50 MG TAB PO SCH (08:23)
[2024-10-22] MEDS: FUROSEMIDE 40 MG TAB PO SCH (08:23)
[2024-10-22] MEDS: FOLIC ACID 1MG TAB PO SCH (08:23)
[2024-10-22] MEDS: ASPIRIN 81MG ENTERIC TABLET PO SCH (08:23)
[2024-10-22] MEDS: MULTIVITAMINS/MINERALS THERAP 1 TAB PO SCH (08:23)
[2024-10-22 13:22] LABS: PERCENT SATURATION 26.6 % (13.2-45.0)
[2024-10-22] MEDS: HEPARIN SOD (PORCINE) 5000UNITS/ML 1ML VIAL/SYRINGE SQ SCH (14:00)
[2024-10-23] VITALS (9 sets, daily range): BP systolic 113–131; BP diastolic 50–66; TEMP 98.1–98.6; O2SAT 94–97
[2024-10-23 06:02] LABS: HEMATOCRIT 25.6 % (36.0-47.0); HEMOGLOBIN 7.9 g/dl (12.0-15.5); MEAN CORPUSCULAR HEMOGLOBIN 26.1 pg (27.0-33.0); MEAN CORPUSCULAR HGB CONC 30.9 g/dl (32.0-36.5); MEAN CORPUSCULAR VOLUME 84.5 fl (80.0-96.0); RED BLOOD COUNT 3.03 10^6/uL (4.00-5.40); WHITE BLOOD COUNT 4.8 10^3/uL (4.0-10.0)
[2024-10-23 06:04] LABS: PLATELET COUNT, AUTOMATED 69 10^3/uL (150-450)
[2024-10-23 06:24] LABS: CALCIUM LEVEL 7.6 MG/DL (8.3-10.6); CREATININE FOR GFR 1.88 MG/DL (0.55-1.30); GLOMERULAR FILTRATION RATE 28.4 (>39); POTASSIUM SERUM 3.3 MMOL/L (3.5-5.1)
[2024-10-23] MEDS: ACETAMINOPHEN 325 MG TAB PO PRN (08:22)
[2024-10-23] MEDS: NS (Normal Saline) 0.9% 1,000 ML IV SCH (12:02)
[2024-10-24 04:42] VITALS: BP_SYST 134; BP_SYST 70; BP_DIAS 70; TEMP 97.2; O2SAT 96
[2024-10-24 05:38] LABS: HEMATOCRIT 26.4 % (36.0-47.0); MEAN CORPUSCULAR HEMOGLOBIN 25.4 pg (27.0-33.0); MEAN CORPUSCULAR HGB CONC 30.3 g/dl (32.0-36.5); MEAN CORPUSCULAR VOLUME 83.8 fl (80.0-96.0); RED BLOOD COUNT 3.15 10^6/uL (4.00-5.40); WHITE BLOOD COUNT 5.5 10^3/uL (4.0-10.0)
[2024-10-24 05:40] LABS: PLATELET COUNT, AUTOMATED 67 10^3/uL (150-450)
[2024-10-24 06:09] LABS: CALCIUM LEVEL 7.4 MG/DL (8.3-10.6); CREATININE FOR GFR 1.83 MG/DL (0.55-1.30); GLOMERULAR FILTRATION RATE 29.4 (>39); POTASSIUM SERUM 3.5 MMOL/L (3.5-5.1)
[2024-10-24 09:00] VITALS: BP 134/70; TEMP 98.1; O2SAT 94
[2024-10-24] MEDS: POTASSIUM CHLORIDE 10MEQ SR TABLET PO SCH (11:18)
[2024-10-24 16:00] VITALS: BP 132/69; TEMP 98.1; O2SAT 94
[2024-10-24 20:41] VITALS: BP 134/66; TEMP 97.9; O2SAT 96
[2024-10-24 23:26] VITALS: BP 140/64; TEMP 97.3; O2SAT 96
[2024-10-25 04:54] VITALS: BP 136/64; TEMP 98.1; O2SAT 96
[2024-10-25 07:24] LABS: HEMATOCRIT 30.2 % (36.0-47.0); HEMOGLOBIN 9.2 g/dl (12.0-15.5); MEAN CORPUSCULAR HEMOGLOBIN 25.8 pg (27.0-33.0); MEAN CORPUSCULAR HGB CONC 30.5 g/dl (32.0-36.5); MEAN CORPUSCULAR VOLUME 84.6 fl (80.0-96.0); PLATELET COUNT, AUTOMATED 78 10^3/uL (150-450); RED BLOOD COUNT 3.57 10^6/uL (4.00-5.40); WHITE BLOOD COUNT 5.8 10^3/uL (4.0-10.0)
[2024-10-25 07:47] LABS: CALCIUM LEVEL 8.3 MG/DL (8.3-10.6); CREATININE FOR GFR 1.71 MG/DL (0.55-1.30); GLOMERULAR FILTRATION RATE 31.8 (>39); POTASSIUM SERUM 4.1 MMOL/L (3.5-5.1)
[2024-10-25 08:00] VITALS: BP 114/55; TEMP 97.9; O2SAT 92
[2024-10-25 12:00] VITALS: BP 116/75; TEMP 98.6; O2SAT 94
[2024-10-25 16:00] VITALS: BP 111/53; TEMP 98.1; O2SAT 95
[2024-10-25 21:53] VITALS: BP 136/68; TEMP 98.1; O2SAT 96
[2024-10-26 04:20] VITALS: BP 143/74; TEMP 98.1; O2SAT 94
[2024-10-26 05:53] LABS: HEMATOCRIT 27.5 % (36.0-47.0); HEMOGLOBIN 8.4 g/dl (12.0-15.5); MEAN CORPUSCULAR HGB CONC 30.5 g/dl (32.0-36.5); MEAN CORPUSCULAR VOLUME 85.1 fl (80.0-96.0); RED BLOOD COUNT 3.23 10^6/uL (4.00-5.40); WHITE BLOOD COUNT 4.4 10^3/uL (4.0-10.0)
[2024-10-26 05:55] LABS: PLATELET COUNT, AUTOMATED 63 10^3/uL (150-450)
[2024-10-26 06:23] LABS: CALCIUM LEVEL 7.9 MG/DL (8.3-10.6); CREATININE FOR GFR 1.78 MG/DL (0.55-1.30); GLOMERULAR FILTRATION RATE 30.3 (>39); POTASSIUM SERUM 4.1 MMOL/L (3.5-5.1)
[2024-10-26 08:00] VITALS: BP 137/70; TEMP 97.9
[2024-10-26 12:00] VITALS: BP 123/53; TEMP 98.1
== END 2024-10-26 12:55 | disposition home or self-care (01) | DRG 433 ==
LOC: M ED 15:51 → M ED INP 15:52 → OBSVTOIN 10-22 10:42 → M MS5PR 10-22 11:43
PROVIDERS: ADMIT Student in an Organized Health Care Education/Training Program; ATTEND Internal Medicine
PROC: 0W9G3ZZ Drainage of Peritoneal Cavity, Percutaneous Approach (ICD-10-PCS; principal; 2024-10-22 09:00)
DX: K70.31 Alcoholic cirrhosis of liver with ascites (principal); N17.9 Acute kidney failure, unspecified; F10.20 Alcohol dependence, uncomplicated; E11.9 Type 2 diabetes mellitus without complications; D64.9 Anemia, unspecified; F17.210 Nicotine dependence, cigarettes, uncomplicated; Z79.52 Long term (current) use of systemic steroids

== ENCOUNTER 2025-01-01 15:26 | Emergency (ER) | payer MEDICARE, MEDICAID ==
[~2025-01-01] VITALS: Ht 157.5 cm; Wt 57.3 kg
[~2025-01-01 15:26] MED LIST changes: +ASPI81TA26 PO; +ONDA-282 PO; +POTA10CA70 PO
[2025-01-01 17:21] LABS: BASO # 0.1 10^3/uL (0.0-0.2); BASO % 1.2 % (0.0-1.0); EOS # 0.3 10^3/uL (0.0-0.5); EOS % 6.4 % (0.0-3.0); LYMPH # 1.1 10^3/uL (1.5-5.0); LYMPH % 20.4 % (24.0-44.0); MONO # 0.5 10^3/uL (0.0-0.8); MONO % 9.7 % (2.0-8.0); NEUTROPHILS # 3.1 10^3/uL (1.5-8.5); NEUTROPHILS % 60.4 % (36.0-66.0)
[2025-01-01 17:34] LABS: ALT/SGPT 30.0 U/L (7.0-40); AST/SGOT 53.0 U/L (<34); CALCIUM LEVEL 8.3 MG/DL (8.3-10.6); CARBON DIOXIDE LEVEL 21.0 MMOL/L (20-31); CHLORIDE LEVEL 111.0 MMOL/L (98-107); CREATININE FOR GFR 0.99 MG/DL (0.55-1.30); GLOMERULAR FILTRATION RATE 61.0 (>39); MAGNESIUM LEVEL 2.0 MG/DL (1.8-2.4); POTASSIUM SERUM 4.1 MMOL/L (3.5-5.1); SODIUM LEVEL 144.0 MMOL/L (136-145)
[2025-01-01 17:44] LABS: PLATELET COUNT, AUTOMATED 89 10^3/uL (150-450)
[2025-01-01 17:48] LABS: INR 1.03
[2025-01-01 18:00] VITALS: BP 134/78; TEMP 98.6; O2SAT 100
== END 2025-01-01 18:28 | disposition home or self-care (01) ==
LOC: M ED 15:26
DX: K70.31 Alcoholic cirrhosis of liver with ascites (principal); E11.9 Type 2 diabetes mellitus without complications; F17.200 Nicotine dependence, unspecified, uncomplicated; R92.1 Mammographic calcification found on diagnostic imaging of breast; Z79.82 Long term (current) use of aspirin

== ENCOUNTER → 2025-01-22 | Outpatient (CLI) | payer MEDICARE, MEDICAID ==
[2025-01-22 09:42] VITALS: TEMP 99.2
[2025-01-22 10:21] VITALS: BP 117/64; O2SAT 95
== END ==
LOC: M IRPRO 09:34
PROVIDERS: ATTEND Pediatrics
DX: R18.8 Other ascites (principal)